=== PATIENT | male | born 1990 | race American Indian/Alaskan Native ===

== ENCOUNTER 2017-01-03 07:50 | Emergency (ER) | payer SELFPAY ==
[2017-01-03 08:04] VITALS: BP 147/74
[2017-01-03] MEDS ORDERED: MVI, Adult with Vitamin K 10 ML, Thiamine 100 MG, Folic Acid 1 MG in Lactated Ringers 1... IV ONE ×4 (08:15)
--- NOTE | 2017-01-03 08:21 | EDM.PDOC ---
ED HPI GENERAL MEDICAL PROBLEM - General Chief Complaint: Drug or Alcohol Abuse Stated Complaint: [id number] WITHDRAWAL Time Seen by Provider: 01/03/17 08:12 Source of Information: Reports: Patient History Limitations: Reports: No Limitations - History of Present Illness INITIAL COMMENTS - FREE TEXT/NARRATIVE: This 26 yo male patient reports to the ED "not feeling well". The patient reports he thinks he is having an anxiety attack. The patient reports he drank a liter of whiskey last night and a liter of whiskey the night before. The patient reports he feels "sick all over". The patient was seen for similar symptoms in the past after drinking and using meth. The patient denies any recent meth use. Onset: Today Duration: Constant, Getting Worse Location: Reports: Generalized Quality: Reports: Ache, Dull Severity: Moderate Improves with: Reports: None Worsens with: Reports: None Context: Reports: Other Associated Symptoms: Reports: Weakness - Related Data Allergies Allergy/AdvReac Type Severity Reaction Status Date / Time No Known Allergies Allergy Verified 06/06/16 00:06 Home Meds: Home Meds Ibuprofen [Advil] 400 mg PO Q6H PRN 10/23/13 [History] Past Medical History - Past Health History Medical/Surgical History: Denies Medical/Surgical History HEENT History: Reports: Impaired Vision Psychiatric History: Reports: Addiction - Past Surgical History HEENT Surgical History: Reports: Tonsillectomy Social & Family History - Family History Family Medical History: Noncontributory - Tobacco Use Smoking Status *Q: Never Smoker Years of Tobacco use: 5 Second Hand Smoke Exposure: No - Caffeine Use Caffeine Use: Reports: Coffee, Energy Drinks, Soda, Tea - Alcohol Use Days Per Week of Alcohol Use: 1 Number of Drinks Per Day: 30 Total Drinks Per Week: 30 - Recreational Drug Use Recreational Drug Use: Yes Recreational Drug Type: Reports: Marijuana/Hashish ED ROS GENERAL - Review of Systems Review Of Systems: ROS reveals no pertinent complaints other than HPI. ED EXAM, GENERAL - Physical Exam Exam: See Below Exam Limited By: No Limitations General Appearance: Alert, WD/WN, Moderate Distress, Obese (morbid obesity) Eye Exam: Bilateral Eye: EOMI, Normal Inspection, PERRL Ears: Normal External Exam, Normal Canal, Hearing Grossly Normal, Normal TMs Nose: Normal Inspection, Normal Mucosa, No Blood Throat/Mouth: Normal Inspection, Normal Lips, Normal Teeth, Normal Gums, Normal Oropharynx, Normal Voice, No Airway Compromise Head: Atraumatic, Normocephalic Neck: Normal Inspection, Supple, Non-Tender, Full Range of Motion Respiratory/Chest: No Respiratory Distress, Lungs Clear, Normal Breath Sounds, No Accessory Muscle Use, Chest Non-Tender Cardiovascular: Normal Peripheral Pulses, Regular Rate, Rhythm, No Edema, No Gallop, No JVD, No Murmur, No Rub GI/Abdominal: Normal Bowel Sounds, Soft, Non-Tender, No Organomegaly, No Distention, No Abnormal Bruit, No Mass, Other (obese) (Male) Exam: Deferred Rectal (Males) Exam: Deferred Back Exam: Normal Inspection, Full Range of Motion, NT Extremities: Normal Inspection, Normal Range of Motion, Non-Tender, Normal Capillary Refill, No Pedal Edema Neurological: Alert, Oriented, CN II-XII Intact, Normal Cognition, Normal Gait, No Motor/Sensory Deficits Psychiatric: Depressed Mood, Flat Affect, Other (poor eye contact) Skin Exam: Warm, Dry, Intact, Normal Color, No Rash Lymphatic: No Adenopathy Course - Vital Signs Last Recorded V/S: Last Vital Signs Temp 36.6 C 01/03/17 08:03 Pulse 84 01/03/17 08:03 Resp 16 01/03/17 08:03 BP 147/74 H 01/03/17 08:03 Pulse Ox 99 01/03/17 08:03 - Orders/Labs/Meds Labs: Laboratory Tests 01/03/17 01/03/17 01/03/17 Range/Units 08:31 08:31 08:31 WBC 8.7 (5.0-10.0) 10^3/uL RBC 5.35 (4.6-6.2) 10^6/uL Hgb 14.8 (14.0-18.0) g/dL Hct 46.0 (40.0-54.0) % MCV 86.0 (80-100) fL MCH 27.7 (27.0-34.0) pg MCHC 32.2 L (33.0-35.0) g/dL Plt Count 345 (150-450) 10^3/uL Neut % (Auto) 63.5 (42.2-75.2) % Lymph % (Auto) 23.3 (20.5-50.1) % [place] % (Auto) 7.3 (2-8) % Eos % (Auto) 5.6 H (1.0-3.0) % Baso % (Auto) 0.3 (0.0-1.0) % Sodium 143 (135-145) mmol/L Potassium 3.6 (3.6-5.0) mmol/L Chloride 108 (101-111) mmol/L Carbon Dioxide 21.0 (21.0-31.0) mmol/L Anion Gap 17.6 BUN 10 (7-18) mg/dL Creatinine 0.7 (0.6-1.3) mg/dL Est Cr Clr Drug Dosing 187.56 mL/min Estimated GFR (MDRD) > 60 BUN/Creatinine Ratio 14.28 Glucose 92 (74-105) mg/dL Calcium 8.8 (8.4-10.2) mg/dl Magnesium 1.9 (1.8-2.5) mg/dL Total Bilirubin 0.6 (0.2-1.0) mg/dL AST 24 (10-42) IU/L ALT 40 (10-60) IU/L Alkaline Phosphatase 79 (42-121) IU/L Ammonia 13 (11-35) umol/L Total Protein 8.1 (6.7-8.2) g/dl Albumin 3.8 (3.2-5.5) g/dl Globulin 4.3 Albumin/Globulin Ratio 0.88 Amylase 37 (28-100) U/L Lipase 26 (22-51) U/L Urine Color (YELLOW) Urine Appearance (CLEAR) Urine pH (5.0-9.0) Ur Specific [place] (1.005-1.030) Urine Protein (NEGATIVE) Urine Glucose (UA) (NEGATIVE) Urine Ketones (NEGATIVE) Urine Occult Blood (NEGATIVE) Urine Nitrite (NEGATIVE) Urine Bilirubin (NEGATIVE) Urine Urobilinogen (0.2-1.0) mg/dL Ur Leukocyte Esterase (NEGATIVE) Urine RBC /HPF Urine WBC (0-5/HPF) /HPF Ur Epithelial Cells /HPF Urine Bacteria (0-FEW/HPF) /HPF Urine Mucus /LPF Urine Opiates Screen (NEGATIVE) Ur Oxycodone Screen (NEGATIVE) Urine Methadone Screen (NEGATIVE) Acetaminophen < 10 Ur Barbiturates Screen (NEGATIVE) U Tricyclic Antidepress (NEGATIVE) Ur Phencyclidine Scrn (NEGATIVE) Ur Amphetamine Screen (NEGATIVE) U Methamphetamines Scrn (NEGATIVE) Urine MDMA Screen (NEGATIVE) U Benzodiazepines Scrn (NEGATIVE) Urine Cocaine Screen (NEGATIVE) U Marijuana (THC) Screen (NEGATIVE) Ethyl Alcohol 36 mg/dL 01/03/17 01/03/17 Range/Units 08:38 08:38 WBC (5.0-10.0) 10^3/uL RBC (4.6-6.2) 10^6/uL Hgb (14.0-18.0) g/dL Hct (40.0-54.0) % MCV (80-100) fL MCH (27.0-34.0) pg MCHC (33.0-35.0) g/dL Plt Count (150-450) 10^3/uL Neut % (Auto) (42.2-75.2) % Lymph % (Auto) (20.5-50.1) % [place] % (Auto) (2-8) % Eos % (Auto) (1.0-3.0) % Baso % (Auto) (0.0-1.0) % Sodium (135-145) mmol/L Potassium (3.6-5.0) mmol/L Chloride (101-111) mmol/L Carbon Dioxide (21.0-31.0) mmol/L Anion Gap BUN (7-18) mg/dL Creatinine (0.6-1.3) mg/dL Est Cr Clr Drug Dosing mL/min Estimated GFR (MDRD) BUN/Creatinine Ratio Glucose (74-105) mg/dL Calcium (8.4-10.2) mg/dl Magnesium (1.8-2.5) mg/dL Total Bilirubin (0.2-1.0) mg/dL AST (10-42) IU/L ALT (10-60) IU/L Alkaline Phosphatase (42-121) IU/L Ammonia (11-35) umol/L Total Protein (6.7-8.2) g/dl Albumin (3.2-5.5) g/dl Globulin Albumin/Globulin Ratio Amylase (28-100) U/L Lipase (22-51) U/L Urine Color Yellow (YELLOW) Urine Appearance Clear (CLEAR) Urine pH 6.0 (5.0-9.0) Ur Specific [place] 1.020 (1.005-1.030) Urine Protein Negative (NEGATIVE) Urine Glucose (UA) Negative (NEGATIVE) Urine Ketones 15 H (NEGATIVE) Urine Occult Blood Negative (NEGATIVE) Urine Nitrite Negative (NEGATIVE) Urine Bilirubin Negative (NEGATIVE) Urine Urobilinogen 0.2 (0.2-1.0) mg/dL Ur Leukocyte Esterase Negative (NEGATIVE) Urine RBC Not seen /HPF Urine WBC Not seen (0-5/HPF) /HPF Ur Epithelial Cells Rare /HPF Urine Bacteria Not seen (0-FEW/HPF) /HPF Urine Mucus Few H /LPF Urine Opiates Screen Negative (NEGATIVE) Ur Oxycodone Screen Negative (NEGATIVE) Urine Methadone Screen Negative (NEGATIVE) Acetaminophen Ur Barbiturates Screen Negative (NEGATIVE) U Tricyclic Antidepress Negative (NEGATIVE) Ur Phencyclidine Scrn Negative (NEGATIVE) Ur Amphetamine Screen Negative (NEGATIVE) U Methamphetamines Scrn Negative (NEGATIVE) Urine MDMA Screen Negative (NEGATIVE) U Benzodiazepines Scrn Negative (NEGATIVE) Urine Cocaine Screen Negative (NEGATIVE) U Marijuana (THC) Screen Positive H (NEGATIVE) Ethyl Alcohol mg/dL Meds: Medications Discontinued Medications Generic Name Dose Route Start Last Admin Trade Name Freq PRN Reason Stop Dose Admin Multivitamins/Minerals 10 ml/ 1,011.2 mls @ 999 mls/hr 01/03/17 08:15 08:27 Thiamine HCl 100 mg/ Folic IV 01/03/17 09:15 999 mls/hr Acid 1 mg/ Lactated Ringer's .BOLUS ONE Administration Lorazepam 1 mg 01/03/17 09:03 01/03/17 09:13 Ativan IVPUSH 01/03/17 09:04 1 mg ONETIME ONE Administration Departure - Departure Time of Disposition: 09:25 Disposition: Home, Self-Care 01 Condition: Fair Clinical Impression: ETOH abuse Gastritis without bleeding due to alcohol Qualifiers: Chronicity: acute Qualified Code(s): K29.20 - Alcoholic gastritis without bleeding - Discharge Information Instructions: Alcohol Intoxication, [id number], Finding Treatment for Addiction Forms: ED Department Discharge Care Plan Goals: The patient was advised of the examination and lab results during the visit. The patient was given a liter of IV fluids with Thiamine, Multivitamin and Folic Acid as well as a dose of IV Ativan whiel in the ED. The patient was encouraged to avoid alcohol use and abuse. If the patient has any additional symptoms or concerns, the patient should follow-up with his primary care facility for continued evaluation and further management.
[2017-01-03 08:58] LABS: CHLORIDE,CL 108 mmol/L (101-111); SODIUM,NA 143 mmol/L (135-145)
[2017-01-03 09:02] LABS: ACETAMINOPHEN < 10
[2017-01-03] MEDS ORDERED: LORazepam 2 MG/ML Syringe IVPUSH ONE (09:03)
== END 2017-01-03 09:42 | disposition home or self-care (01) ==
LOC: DL.ED 07:50
DX: K29.20 Alcoholic gastritis without bleeding (principal); F10.10 Alcohol abuse, uncomplicated; Y90.1 Blood alcohol level of 20-39 mg/100 ml; Z98.890 Other specified postprocedural states
CPT/HCPCS: 36415; 80053; 80305; 81001; 82140; 82150; 83690; 83735; 85025; 96365; 96375; 99284; G0480; J2060; J3411; J7120; J3490

== ENCOUNTER 2017-03-13 22:45 | Emergency (ER) | payer MEDICAID ==
[2017-03-13] MEDS ORDERED: LORazepam 1 MG Tab PO ONE (22:57)
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
[2017-03-13 23:28] VITALS: BP 136/84
== END 2017-03-14 00:15 | disposition home or self-care (01) ==
LOC: DL.ED 22:45
DX: S16.1XXA Strain of muscle, fascia and tendon at neck level, initial encounter (principal); X58.XXXA Exposure to other specified factors, initial encounter
CPT/HCPCS: 72125; 99283; A9270

== ENCOUNTER 2017-05-05 18:44 | Emergency (ER) | payer MEDICAID ==
[2017-05-05] MEDS ORDERED: LORazepam 1 MG Tab PO ONE (18:45)
[2017-05-05 18:52] VITALS: BP 171/90
--- NOTE | 2017-05-05 19:42 | EDM.PDOCBH ---
ED HPI GENERAL MEDICAL PROBLEM - General Chief Complaint: Drug or Alcohol Abuse Stated Complaint: [id number] ANXIETY INTOXICATION X 1 WEEK Time Seen by Provider: 05/05/17 19:10 Source of Information: Reports: Patient, Family - History of Present Illness INITIAL COMMENTS - FREE TEXT/NARRATIVE: Ed with c/o anxiety. Reports drinking more than one gallon of vodka daily for last week, prior to that had been sober for approximately one month. No hx of withdrawal seizures. Usual sx of anxiety and sweats. Reports some nausea today, no vomiting Onset: Today - Related Data Allergies Allergy/AdvReac Type Severity Reaction Status Date / Time No Known Allergies Allergy Verified 05/05/17 18:52 Home Meds: Home Meds . [No Known Home Meds] 05/05/17 [History] CIWAA - CIWAA CIWAA Nausea And Vomitin - Mild Nausea with No Vomiting CIWAA Tremor: 2 CIWAA Paroxysmal Sweats: 4 - Beads of Sweat Obvious on Forehead CIWAA Anxiety: 4 - Moderately Anxious, or Guarded, so Anxiety is Inferred CIWAA Agitation: 1 -Somewhat More than Normal Activity CIWAA Tactile Disturbances: 0 - None CIWAA Auditory Disturbances: 0 - Not Present CIWAA Visual Disturbances: 0 - Not Present CIWAA Headache, Fullness in Head: 0 - Not Present CIWAA Orientation And Clouding Of Sensorium: 0 - Oriented and Can do Serial Additions CIWAA Scale Score: 12 Past Medical History - Past Health History Medical/Surgical History: Denies Medical/Surgical History HEENT History: Reports: Impaired Vision Psychiatric History: Reports: Addiction, Anxiety - Past Surgical History HEENT Surgical History: Reports: Tonsillectomy Social & Family History - Family History Family Medical History: Noncontributory - Tobacco Use Smoking Status *Q: Never Smoker Years of Tobacco use: 5 Second Hand Smoke Exposure: Yes - Caffeine Use Caffeine Use: Reports: Coffee, Energy Drinks, Soda, Tea - Alcohol Use Days Per Week of Alcohol Use: 1 Number of Drinks Per Day: 30 Total Drinks Per Week: 30 - Recreational Drug Use Recreational Drug Use: No Drug Use in Last 12 Months: Yes Recreational Drug Type: Reports: Marijuana/Hashish Recreational Drug Use Frequency: Not Used In Over 6 Months ED ROS GENERAL - Review of Systems Review Of Systems: ROS reveals no pertinent complaints other than HPI. ED EXAM, BEHAVIORAL HEALTH - Physical Exam Exam: See Below Exam Limited By: No Limitations General Appearance: Alert, Anxious, Mild Distress. No: Lethargic Eye Exam: Bilateral Eye: EOMI (horizontal nystagmus) Ears: Normal External Exam, Normal TMs Nose: Normal Inspection Throat/Mouth: Normal Inspection Head: Atraumatic, Normocephalic Neck: Normal Inspection Respiratory/Chest: No Respiratory Distress, Lungs Clear Cardiovascular: Normal Peripheral Pulses, Regular Rate, Rhythm, Tachycardia GI/Abdominal: Normal Bowel Sounds, Soft, Non-Tender Back Exam: Full Range of Motion Extremities: Normal Inspection Neurological: Alert, Normal Cognition, Oriented x 3 Psychiatric: Alert, Restless, Agitated. No: Auditory Hallucinations, Visual Hallucinations Skin Exam: Warm, Normal color, Diaphoretic. No: Signs of self injury COURSE, BEHAVIORAL HEALTH COMP - Course Vital Signs: Last Vital Signs Temp 98 F 05/05/17 18:48 Pulse 126 H 05/05/17 18:48 Resp 22 H 05/05/17 18:48 BP 171/90 H 05/05/17 18:48 Pulse Ox 98 05/05/17 18:48 Orders, Labs, Meds: Laboratory Tests 05/05/17 05/05/17 05/05/17 Range/Units 19:30 19:30 19:45 WBC 7.6 (5.0-10.0) 10^3/uL RBC 5.59 (4.6-6.2) 10^6/uL Hgb 15.6 (14.0-18.0) g/dL Hct 47.2 (40.0-54.0) % MCV 84.4 (80-100) fL MCH 27.9 (27.0-34.0) pg MCHC 33.1 (33.0-35.0) g/dL Plt Count 365 (150-450) 10^3/uL Neut % (Auto) 69.5 (42.2-75.2) % Lymph % (Auto) 21.2 (20.5-50.1) % [place] % (Auto) 7.5 (2-8) % Eos % (Auto) 1.1 (1.0-3.0) % Baso % (Auto) 0.7 (0.0-1.0) % Sodium 142 (135-145) mmol/L Potassium 3.6 (3.6-5.0) mmol/L Chloride 107 (101-111) mmol/L Carbon Dioxide 24.0 (21.0-31.0) mmol/L Anion Gap 14.6 BUN 9 (7-18) mg/dL Creatinine 0.7 (0.6-1.3) mg/dL Est Cr Clr Drug Dosing 185.93 mL/min Estimated GFR (MDRD) > 60 BUN/Creatinine Ratio 12.85 Glucose 112 H (74-105) mg/dL Calcium 8.5 (8.4-10.2) mg/dl Total Bilirubin 0.4 (0.2-1.0) mg/dL AST 30 (10-42) IU/L ALT 48 (10-60) IU/L Alkaline Phosphatase 81 (42-121) IU/L Total Protein 8.8 H (6.7-8.2) g/dl Albumin 4.1 (3.2-5.5) g/dl Globulin 4.7 Albumin/Globulin Ratio 0.87 Urine Color (YELLOW) Urine Appearance (CLEAR) Urine pH (5.0-9.0) Ur Specific [place] (1.005-1.030) Urine Protein (NEGATIVE) Urine Glucose (UA) (NEGATIVE) Urine Ketones (NEGATIVE) Urine Occult Blood (NEGATIVE) Urine Nitrite (NEGATIVE) Urine Bilirubin (NEGATIVE) Urine Urobilinogen (0.2-1.0) mg/dL Ur Leukocyte Esterase (NEGATIVE) Urine RBC /HPF Urine WBC (0-5/HPF) /HPF Ur Epithelial Cells /HPF Amorphous Sediment (0/HPF) /HPF Urine Bacteria (0-FEW/HPF) /HPF Urine Mucus /LPF Urine Yeast (0/HPF) /HPF Urine Opiates Screen Negative (NEGATIVE) Ur Oxycodone Screen Negative (NEGATIVE) Urine Methadone Screen Negative (NEGATIVE) Ur Barbiturates Screen Negative (NEGATIVE) U Tricyclic Antidepress Negative (NEGATIVE) Ur Phencyclidine Scrn Negative (NEGATIVE) Ur Amphetamine Screen Negative (NEGATIVE) U Methamphetamines Scrn Negative (NEGATIVE) Urine MDMA Screen Negative (NEGATIVE) U Benzodiazepines Scrn Negative (NEGATIVE) Urine Cocaine Screen Negative (NEGATIVE) U Marijuana (THC) Screen Negative (NEGATIVE) Ethyl Alcohol 274 mg/dL 05/05/ Range/Units 19:45 WBC (5.0-10.0) 10^3/uL RBC (4.6-6.2) 10^6/uL Hgb (14.0-18.0) g/dL Hct (40.0-54.0) % MCV (80-100) fL MCH (27.0-34.0) pg MCHC (33.0-35.0) g/dL Plt Count (150-450) 10^3/uL Neut % (Auto) (42.2-75.2) % Lymph % (Auto) (20.5-50.1) % [place] % (Auto) (2-8) % Eos % (Auto) (1.0-3.0) % Baso % (Auto) (0.0-1.0) % Sodium (135-145) mmol/L Potassium (3.6-5.0) mmol/L Chloride (101-111) mmol/L Carbon Dioxide (21.0-31.0) mmol/L Anion Gap BUN (7-18) mg/dL Creatinine (0.6-1.3) mg/dL Est Cr Clr Drug Dosing mL/min Estimated GFR (MDRD) BUN/Creatinine Ratio Glucose (74-105) mg/dL Calcium (8.4-10.2) mg/dl Total Bilirubin (0.2-1.0) mg/dL AST (10-42) IU/L ALT (10-60) IU/L Alkaline Phosphatase (42-121) IU/L Total Protein (6.7-8.2) g/dl Albumin (3.2-5.5) g/dl Globulin Albumin/Globulin Ratio Urine Color Dark yellow (YELLOW) Urine Appearance Slightly cloudy (CLEAR) Urine pH 6.0 (5.0-9.0) Ur Specific [place] >= 1.030 (1.005-1.030) Urine Protein 100 H (NEGATIVE) Urine Glucose (UA) Negative (NEGATIVE) Urine Ketones Trace H (NEGATIVE) Urine Occult Blood Large H (NEGATIVE) Urine Nitrite Negative (NEGATIVE) Urine Bilirubin Negative (NEGATIVE) Urine Urobilinogen 0.2 (0.2-1.0) mg/dL Ur Leukocyte Esterase Negative (NEGATIVE) Urine RBC 30-40 H /HPF Urine WBC 0-5 (0-5/HPF) /HPF Ur Epithelial Cells Few /HPF Amorphous Sediment Few (0/HPF) /HPF Urine Bacteria Moderate H (0-FEW/HPF) /HPF Urine Mucus Many H /LPF Urine Yeast Few H (0/HPF) /HPF Urine Opiates Screen (NEGATIVE) Ur Oxycodone Screen (NEGATIVE) Urine Methadone Screen (NEGATIVE) Ur Barbiturates Screen (NEGATIVE) U Tricyclic Antidepress (NEGATIVE) Ur Phencyclidine Scrn (NEGATIVE) Ur Amphetamine Screen (NEGATIVE) U Methamphetamines Scrn (NEGATIVE) Urine MDMA Screen (NEGATIVE) U Benzodiazepines Scrn (NEGATIVE) Urine Cocaine Screen (NEGATIVE) U Marijuana (THC) Screen (NEGATIVE) Ethyl Alcohol mg/dL Medications Discontinued Medications Generic Name Dose Route Start Last Admin Trade Name Leroyq PRN Reason Stop Dose Admin Lorazepam Confirm 05/05/17 20:05 05/05/17 20:11 Ativan Administered 05/05/17 20:06 Not Given Dose 3 mg .ROUTE .STK-MED ONE Departure - Departure Time of Disposition: 19:57 Disposition: Home, Self-Care 01 Condition: Fair Clinical Impression: Alcohol abuse Alcohol withdrawal syndrome Qualifiers: Complication of substance-induced condition: with unspecified complication Qualified Code(s): F10.239 - Alcohol dependence with withdrawal, unspecified - Discharge Information Instructions: Alcohol Intoxication, [id number] Referrals: PCP,None [Primary Care Provider] - Forms: ED Department Discharge Additional Instructions: Ativan1 mg every 6 hours #3 Follow up at [facility] in am for evaluation quit drinking home with brother
[2017-05-05 19:52] LABS: CHLORIDE,CL 107 mmol/L (101-111); SODIUM,NA 142 mmol/L (135-145)
[2017-05-05] MEDS ORDERED: LORazepam 1 MG Tab ONE (20:05)
== END 2017-05-05 20:09 | disposition home or self-care (01) ==
LOC: DL.ED 18:44
DX: F10.239 Alcohol dependence with withdrawal, unspecified (principal); Z77.22 Contact with and (suspected) exposure to environmental tobacco smoke (acute) (chronic); Y90.8 Blood alcohol level of 240 mg/100 ml or more
CPT/HCPCS: 36415; 80053; 80305; 81001; 85025; 99283; A9270; G0480

== ENCOUNTER 2017-07-04 20:15 | Emergency (ER) | payer MEDICAID | END 2017-07-04 20:36 | disposition left against medical advice (07) | LOC: DL.ED 20:15 | DX: Z53.21 Procedure and treatment not carried out due to patient leaving prior to being seen by health care provider (principal) ==

== ENCOUNTER 2017-09-23 07:56 | Observation (INO) | payer MEDICAID ==
--- NOTE | 2017-09-23 08:05 | EDM.PDOC ---
ED HPI GENERAL MEDICAL PROBLEM - General Chief Complaint: Drug or Alcohol Abuse Stated Complaint: ALCOHOL & DRUGS [phone] Time Seen by Provider: 09/23/17 08:05 Source of Information: Reports: Patient, RN, RN Notes Reviewed History Limitations: Reports: No Limitations - History of Present Illness INITIAL COMMENTS - FREE TEXT/NARRATIVE: Arrives from home by POV with c/o alcohol withdrawals and anxiety. Pt states that he last drank alcohol yesterday. Admits to drinking approx. one liter of whisky or vodka per day for 10 years. Pt admits to Hx of alcohol withdrawals. Denies Hx of withdrawal seizures. Pt has not been to alcohol treatment in the past, but would like to go to a treatment facility once he is over the acute EtOH withdrawal phase. Pt denies vomiting, abdominal pain, dark/black/bloody/melanotic stools. Duration: Chronic Location: Reports: Generalized Severity: Severe Improves with: Reports: None Worsens with: Reports: None Associated Symptoms: Reports: No Other Symptoms - Related Data Allergies Allergy/AdvReac Type Severity Reaction Status Date / Time No Known Allergies Allergy Verified 09/23/17 08:08 Home Meds: Home Meds . [No Known Home Meds] 05/05/17 [History] Past Medical History - Past Health History Medical/Surgical History: Denies Medical/Surgical History HEENT History: Reports: Impaired Vision Psychiatric History: Reports: Addiction, Anxiety Endocrine/Metabolic History: Reports: Obesity/BMI 30+ - Past Surgical History HEENT Surgical History: Reports: Tonsillectomy Social & Family History - Family History Family Medical History: Noncontributory - Tobacco Use Smoking Status *Q: Never Smoker Years of Tobacco use: 5 Second Hand Smoke Exposure: Yes - Caffeine Use Caffeine Use: Reports: Coffee, Energy Drinks, Soda, Tea - Alcohol Use Alcohol Use History: Yes Days Per Week of Alcohol Use: 7 Days Per Week of Alcohol Use Comment: 1 liter or hard alcohol per day x10 yrs. Number of Drinks Per Day: 30 Total Drinks Per Week: 210 Alcohol Use in Last Twelve Months: Yes Alcohol Use Frequency: Daily Desires Substance Cessation Medication: Yes - Recreational Drug Use Recreational Drug Use: No Drug Use in Last 12 Months: Yes Recreational Drug Type: Reports: Marijuana/Hashish Recreational Drug Use Frequency: Socially Recreational Drug Route: Reports: Inhaled - Living Situation & Occupation Living situation: Reports: Single, with Family Occupation: Unemployed ED ROS GENERAL - Review of Systems Review Of Systems: ROS reveals no pertinent complaints other than HPI. ED EXAM, GENERAL - Physical Exam Exam: See Below Exam Limited By: No Limitations General Appearance: Alert, Anxious, Obese Eye Exam: Bilateral Eye: EOMI, Nystagmus (lateral gaze), PERRL Ears: Normal External Exam, Normal Canal, Hearing Grossly Normal, Normal TMs Nose: No Blood Throat/Mouth: Normal Oropharynx, Normal Voice, No Airway Compromise, Other (dry oral membranes) Head: Atraumatic, Normocephalic Neck: Normal Inspection, Supple, Non-Tender, Full Range of Motion Respiratory/Chest: No Respiratory Distress, Lungs Clear, Normal Breath Sounds, No Accessory Muscle Use, Chest Non-Tender Cardiovascular: Regular Rate, Rhythm, No Edema, No JVD, No Murmur, Tachycardia GI/Abdominal: Normal Bowel Sounds, Soft, Non-Tender, No Distention, Other ( benign obese abdomen). No: Guarding, Rigid, Rebound (Male) Exam: Deferred Rectal (Males) Exam: Deferred Back Exam: Normal Inspection, Full Range of Motion. No: CVA Tenderness (L), CVA Tenderness (R) Extremities: Normal Inspection, Normal Range of Motion, Non-Tender, Normal Capillary Refill, No Pedal Edema Neurological: Alert, Oriented, Normal Gait, No Motor/Sensory Deficits Psychiatric: Anxious, Depressed Mood Skin Exam: Warm, Dry, Intact, Other (central facial erythema w/nodular lesion consistent with rosacea) Course - Vital Signs Last Recorded V/S: Last Vital Signs Temp 36.6 C 09/23/17 08:05 Pulse 93 09/23/17 08:05 Resp 16 09/23/17 08:05 BP 154/90 H 09/23/17 08:05 Pulse Ox 96 09/23/17 08:05 - Orders/Labs/Meds Orders: Active Orders 24 hr Category Date Time Status Peripheral IV Care [RC] . DIRECTED Care 09/23/17 08:13 Active DRUG SCREEN URINE BIORAD [URCHEM] Stat Lab 09/23/17 08:13 Ordered TSH ULTRASENSITIVE [CHEM] Stat Lab 09/23/17 08:22 Received UA W/MICROSCOPIC [URIN] Stat Lab 09/23/17 08:13 Ordered MVI, Adult with Vitamin K [Infuvite Adult] 10 ml Med 09/23/17 08:14 Active Thiamine [Vitamin B-1] 100 mg Folic Acid 1 mg Lactated Ringers [Ringers, Lactated] 1,000 ml IV .BOLUS Sodium Chloride 0.9% [Saline Flush] Med 09/23/17 08:13 Active 10 ml FLUSH ASDIRECTED PRN Peripheral IV Insertion Adult [OM.PC] Stat Oth 09/23/17 08:13 Ordered Medication Orders Multivitamins/Minerals 10 ml/Thiamine HCl 100 mg/ Folic Acid 1 mg/ Lactated Ringer's 1,011.2 mls @ 999 mls/hr IV .BOLUS ONE Stop: 09/23/17 09:14 Last Admin: 09/23/17 08:31 Dose: 999 mls/hr Sodium Chloride (Saline Flush) 10 ml FLUSH ASDIRECTED PRN PRN Reason: Keep Vein Open Last Admin: 09/23/17 08:32 Dose: 10 ml Labs: Laboratory Tests 09/23/17 09/23/17 Range/Units 08:22 08:22 WBC 7.2 (5.0-10.0) 10^3/uL RBC 5.24 (4.6-6.2) 10^6/uL Hgb 14.8 (14.0-18.0) g/dL Hct 44.7 (40.0-54.0) % MCV 85.3 (80-100) fL MCH 28.2 (27.0-34.0) pg MCHC 33.1 (33.0-35.0) g/dL Plt Count 337 (150-450) 10^3/uL Neut % (Auto) 66.6 (42.2-75.2) % Lymph % (Auto) 20.1 L (20.5-50.1) % [place] % (Auto) 8.9 H (2-8) % Eos % (Auto) 3.8 H (1.0-3.0) % Baso % (Auto) 0.6 (0.0-1.0) % Sodium 140 (135-145) mmol/L Potassium 3.6 (3.6-5.0) mmol/L Chloride 106 (101-111) mmol/L Carbon Dioxide 23.0 (21.0-31.0) mmol/L Anion Gap 14.6 BUN 6 L (7-18) mg/dL Creatinine 0.8 (0.6-1.3) mg/dL Est Cr Clr Drug Dosing 162.69 mL/min Estimated GFR (MDRD) > 60 BUN/Creatinine Ratio 7.50 Glucose 104 (74-105) mg/dL Calcium 8.9 (8.4-10.2) mg/dl Magnesium 1.6 L (1.8-2.5) mg/dL Total Bilirubin 0.5 (0.2-1.0) mg/dL AST 23 (10-42) IU/L ALT 55 (10-60) IU/L Alkaline Phosphatase 80 (42-121) IU/L Total Protein 8.2 (6.7-8.2) g/dl Albumin 3.9 (3.2-5.5) g/dl Globulin 4.3 Albumin/Globulin Ratio 0.91 Amylase 40 (28-100) U/L Lipase 34 (22-51) U/L Salicylates < 4 Acetaminophen < 10 Ethyl Alcohol 17 mg/dL Meds: Medications Generic Name Dose Route Start Last Admin Trade Name Leroyq PRN Reason Stop Dose Admin Multivitamins/Minerals 10 ml/ 1,011.2 mls @ 999 mls/hr 09/23/17 08:14 08:31 Thiamine HCl 100 mg/ Folic IV 09/23/17 09:14 999 mls/hr Acid 1 mg/ Lactated Ringer's .BOLUS ONE Administration Sodium Chloride 10 ml 09/23/17 08:13 09/23/17 08:32 Saline Flush FLUSH 10 ml ASDIRECTED PRN Administration Keep Vein Open Discontinued Medications Generic Name Dose Route Start Last Admin Trade Name Leroyq PRN Reason Stop Dose Admin Lorazepam 2 mg 09/23/17 08:14 09/23/17 08:31 Ativan IVPUSH 09/23/17 08:15 2 mg ONETIME ONE Administration Ondansetron HCl 4 mg 09/23/17 08:14 09/23/17 08:32 Zofran IV 09/23/17 08:15 4 mg ONETIME ONE Administration Departure - Departure Time of Disposition: 09:06 (admitted to Dr. Lee) Disposition: Admitted As Inpatient 67 Condition: Fair Clinical Impression: Alcohol abuse Alcohol withdrawal syndrome Qualifiers: Complication of substance-induced condition: with unspecified complication Qualified Code(s): F10.239 - Alcohol dependence with withdrawal, unspecified - Discharge Information Forms: ED Department Discharge - My Orders Last 24 Hours: My Active Orders 09/23/17 08:13 Peripheral IV Care [RC] . DIRECTED DRUG SCREEN URINE BIORAD [URCHEM] Stat UA W/MICROSCOPIC [URIN] Stat Sodium Chloride 0.9% [Saline Flush] 10 ml FLUSH ASDIRECTED PRN Peripheral IV Insertion Adult [OM.PC] Stat 09/23/17 08:14 MVI, Adult with Vitamin K [Infuvite Adult] 10 ml Thiamine [Vitamin B-1] 100 mg Folic Acid 1 mg Lactated Ringers [Ringers, Lactated] 1,000 ml IV .BOLUS 09/23/17 08:22 TSH ULTRASENSITIVE [CHEM] Stat - Assessment/Plan Last 24 Hours: My Active Orders 09/23/17 08:13 Peripheral IV Care [RC] . DIRECTED DRUG SCREEN URINE BIORAD [URCHEM] Stat UA W/MICROSCOPIC [URIN] Stat Sodium Chloride 0.9% [Saline Flush] 10 ml FLUSH ASDIRECTED PRN Peripheral IV Insertion Adult [OM.PC] Stat 09/23/17 08:14 MVI, Adult with Vitamin K [Infuvite Adult] 10 ml Thiamine [Vitamin B-1] 100 mg Folic Acid 1 mg Lactated Ringers [Ringers, Lactated] 1,000 ml IV .BOLUS 09/23/17 08:22 TSH ULTRASENSITIVE [CHEM] Stat
[2017-09-23] MEDS ORDERED: LORazepam 2 MG/ML Syringe IVPUSH ONE (08:14)
[2017-09-23] MEDS ORDERED: Ondansetron 4 MG/2 ML SDV IV ONE (08:14)
[2017-09-23] MEDS ORDERED: MVI, Adult with Vitamin K 10 ML, Thiamine 100 MG, Folic Acid 1 MG in Lactated Ringers 1... IV ONE ×4 (08:14)
[2017-09-23] MEDS: Sodium Chloride 0.9% 10 ML Syringe FLUSH PRN (08:32)
[2017-09-23 08:56] LABS: CHLORIDE,CL 106 mmol/L (101-111); SODIUM,NA 140 mmol/L (135-145)
[2017-09-23 08:58] LABS: ACETAMINOPHEN < 10
[2017-09-23] MEDS ORDERED: LORazepam 2 MG/ML Syringe IVPUSH PRN (09:48)
[2017-09-23] MEDS ORDERED: Ondansetron 4 MG Tab.DIS PO PRN (09:49)
[2017-09-23] MEDS ORDERED: Ondansetron 4 MG/2 ML SDV IVPUSH PRN (09:49)
[2017-09-23] MEDS ORDERED: Zolpidem 5 MG Tab PO PRN (09:49)
--- NOTE | 2017-09-23 11:16 | PCM.HP ---
H&P History of Present Illness - General Date of Service: 09/23/17 Admit Problem/Dx: Admission Diagnosis/Problem Admission Diagnosis/Problem Alcohol withdrawal syndrome - History of Present Illness Initial Comments - Free Text/Narative: 27-year-old gentleman with a history of alcohol abuse. He has no other chronic medical history. Has been drinking heavily for years. Recently 1 L of hard liquor a day. Has tried to stop drinking but he usually gets very anxious and restarting drinking again. Has not been in all official treatment before. Last drink was on 22 September evening. Came into the emergency room complaining of anxiety No shortness of breath, no chest pain, no fever or chills. No black or bloody bowel movement. No vomiting. - Related Data Allergies/Adverse Reactions: Allergies Allergy/AdvReac Type Severity Reaction Status Date / Time No Known Allergies Allergy Verified 09/23/17 10:04 Home Medications: Home Meds Multivitamin [Multi-Vitamin Daily] 1 tab PO DAILY 09/23/17 [History] Past Medical History - Past Health History Medical/Surgical History: Denies Medical/Surgical History HEENT History: Reports: Impaired Vision Psychiatric History: Reports: Addiction, Anxiety Endocrine/Metabolic History: Reports: Obesity/BMI 30+ - Infectious Disease History Infectious Disease History: Reports: Chicken Pox - Past Surgical History HEENT Surgical History: Reports: Tonsillectomy Social & Family History - Family History Family Medical History: Noncontributory - Tobacco Use Smoking Status *Q: Never Smoker Years of Tobacco use: 5 Used Tobacco, but Quit: Yes Month/Year Tobacco Last Used: 2017 Second Hand Smoke Exposure: Yes - Caffeine Use Caffeine Use: Reports: Coffee, Energy Drinks, Soda, Tea - Alcohol Use Days Per Week of Alcohol Use: 7 Number of Drinks Per Day: 30 Total Drinks Per Week: 210 - Recreational Drug Use Recreational Drug Use: Yes Drug Use in Last 12 Months: Yes Recreational Drug Type: Reports: Marijuana/Hashish Recreational Drug Use Frequency: Monthly - Living Situation & Occupation Living situation: Reports: Single, with Family Occupation: Unemployed H&P Review of Systems - Review of Systems: Review Of Systems: See Below General: Denies: Fever Pulmonary: Denies: Shortness of Breath Cardiovascular: Denies: Chest Pain Gastrointestinal: Reports: Nausea. Denies: Abdominal Pain Psychiatric: Reports: Anxiety. Denies: Agitation Neurological: Denies: Confusion Exam - Exam Exam: See Below - Vital Signs Vital Signs: Last Vital Signs Temp 36.7 C 09/23/17 09:50 Pulse 94 09/23/17 09:50 Resp 20 09/23/17 09:50 BP 147/97 H 09/23/17 09:50 Pulse Ox 98 09/23/17 09:50 Weight: 207.382 kg - Exam General: Alert, Oriented Neck: Supple Lungs: Clear to Auscultation, Normal Respiratory Effort Cardiovascular: Regular Rate, Regular Rhythm GI/Abdominal Exam: Normal Bowel Sounds, Soft, Non-Tender Extremities: No Pedal Edema Neurological: Strength Equal Bilateral, Normal Speech. No: Focal Deficit Neuro Extensive - Mental Status: Other (Upper extremity mild tremor) Psychiatric: Alert, Normal Affect, Anxious - Patient Data Lab Results Last 24 hrs: Laboratory Results - last 24 hr 09/23/17 09/23/17 09/23/17 Range/Units 08:22 08:22 08:22 WBC 7.2 (5.0-10.0) 10^3/uL RBC 5.24 (4.6-6.2) 10^6/uL Hgb 14.8 (14.0-18.0) g/dL Hct 44.7 (40.0-54.0) % MCV 85.3 (80-100) fL MCH 28.2 (27.0-34.0) pg MCHC 33.1 (33.0-35.0) g/dL Plt Count 337 (150-450) 10^3/uL Neut % (Auto) 66.6 (42.2-75.2) % Lymph % (Auto) 20.1 L (20.5-50.1) % [place] % (Auto) 8.9 H (2-8) % Eos % (Auto) 3.8 H (1.0-3.0) % Baso % (Auto) 0.6 (0.0-1.0) % Sodium 140 (135-145) mmol/L Potassium 3.6 (3.6-5.0) mmol/L Chloride 106 (101-111) mmol/L Carbon Dioxide 23.0 (21.0-31.0) mmol/L Anion Gap 14.6 BUN 6 L (7-18) mg/dL Creatinine 0.8 (0.6-1.3) mg/dL Est Cr Clr Drug Dosing 162.69 mL/min Estimated GFR (MDRD) > 60 BUN/Creatinine Ratio 7.50 Glucose 104 (74-105) mg/dL Calcium 8.9 (8.4-10.2) mg/dl Magnesium 1.6 L (1.8-2.5) mg/dL Total Bilirubin 0.5 (0.2-1.0) mg/dL AST 23 (10-42) IU/L ALT 55 (10-60) IU/L Alkaline Phosphatase 80 (42-121) IU/L Total Protein 8.2 (6.7-8.2) g/dl Albumin 3.9 (3.2-5.5) g/dl Globulin 4.3 Albumin/Globulin Ratio 0.91 Amylase 40 (28-100) U/L Lipase 34 (22-51) U/L TSH, Ultra Sensitive 1.06 (0.45-5.33) uIu/mL Salicylates < 4 Acetaminophen < 10 Ethyl Alcohol 17 mg/dL Result Diagrams: 09/23/17 08:22 09/23/17 08:22 - Problem List (1) Alcohol abuse SNOMED Code(s): 32519740 ICD Code: F10.10 - ALCOHOL ABUSE, UNCOMPLICATED Status: Acute Current Visit: No Problem List Initiated/Reviewed/Updated: Yes Orders Last 24hrs: Active Orders 24 hr Category Date Time Status Admission Status [Patient Status] [ADT] Routine ADT 09/23/17 10:54 Ordered Oxygen Therapy [RC] PRN Care 09/23/17 09:50 Active Up With Assistance [RC] ASDIRECTED Care 09/23/17 09:49 Active Vital Signs [RC] 07,11,15,19,23,03 Care 09/23/17 09:50 Active Regular Diet [DIET] Diet 09/23/17 Lunch Active BASIC METABOLIC PANEL,BMP [CHEM] AM Lab 09/24/17 05:15 Ordered CBC WITH AUTO DIFF [HEME] AM Lab 09/24/17 05:15 Ordered DRUG SCREEN URINE BIORAD [URCHEM] Stat Lab 09/23/17 08:13 Ordered UA W/MICROSCOPIC [URIN] Stat Lab 09/23/17 08:13 Ordered Heparin Sodium Med 09/23/17 14:00 Active 5,000 units SUBCUT Q8HR LORazepam [Ativan] Med 09/23/17 09:48 Active 1 mg IVPUSH ASDIRECTED PRN LORazepam [Ativan] Med 09/23/17 09:47 Active See Protocol PO Q1H PRN Ondansetron [Zofran ODT] Med 09/23/17 09:49 Active 4 mg PO Q4H PRN Ondansetron [Zofran] Med 09/23/17 09:49 Active 4 mg IVPUSH Q4H PRN Sodium Chloride 0.9% [Saline Flush] Med 09/23/17 08:13 Active 10 ml FLUSH ASDIRECTED PRN Sodium Chloride 0.9% with KCl 20 mEq @ 100 mL/Hr (1000 Med 09/23/17 11:00 Ordered mL) NS + KCl 20mEq/L [Normal Saline with 20 mEq KCl] 1,000 ml IV ASDIRECTED Zolpidem [Ambien] Med 09/23/17 09:49 Active 5 mg PO BEDTIME PRN Peripheral IV Insertion Adult [OM.PC] Stat Oth 09/23/17 08:13 Ordered Resuscitation Status Routine Resus Stat 09/23/17 09:49 Ordered Medication Orders Heparin Sodium (Porcine) (Heparin Sodium) 5,000 units SUBCUT Q8HR RUDDY Potassium Chloride/Sodium Chloride (Normal Saline With 20 Meq Kcl) 1,000 mls @ 100 mls/hr IV ASDIRECTED RUDDY Lorazepam (Ativan) 0 mg PO Q1H PRN; Protocol PRN Reason: Withdrawal Symptoms Lorazepam (Ativan) 1 mg IVPUSH ASDIRECTED PRN; Protocol PRN Reason: withdrawal Ondansetron HCl (Zofran Odt) 4 mg PO Q4H PRN PRN Reason: nausea, able to take PO Ondansetron HCl (Zofran) 4 mg IVPUSH Q4H PRN PRN Reason: Nausea/Vomiting Sodium Chloride (Saline Flush) 10 ml FLUSH ASDIRECTED PRN PRN Reason: Keep Vein Open Last Admin: 09/23/17 08:32 Dose: 10 ml Zolpidem Tartrate (Ambien) 5 mg PO BEDTIME PRN PRN Reason: Sleep Assessment/Plan Comment:: 1. Alcohol abuse. We will give the patient IV fluids with IV electrolyte replacement. Follow electrolytes. 2. Chronic Alcohol addiction. Consult Social Work and evaluate for alcohol treatment programs. 3. Chronic alcohol use. Supplement thiamine, folate and multivitamin. 4. High Risk for alcohol withdrawal. Frequent evaluations and titration of Ativan per the CIWA protocol 5. Deep venous thrombosis (DVT) prophylaxis will be with subcutaneous heparin.
[2017-09-23] MEDS: NS + KCl 20mEq/L 1,000 ML IV SCH ×2 (11:17→22:00)
[2017-09-23] MEDS: LORazepam 1 MG Tab PO PRN ×2 (11:28→20:49)
[2017-09-23] MEDS: Thiamine 100 MG Tab PO SCH (12:42)
[2017-09-23] MEDS: Folic Acid 1 MG Tab PO SCH (12:42)
[2017-09-23] MEDS: Multivitamins, Therapeutic with Minerals Tab PO SCH (12:42)
[2017-09-23] MEDS: Heparin Sodium 5,000 Units/ML Vial SUBCUT SCH ×2 (15:52→21:45)
[2017-09-23] MEDS ORDERED: Acetaminophen 325 MG Tab PO PRN (23:37)
[2017-09-24] MEDS: Heparin Sodium 5,000 Units/ML Vial SUBCUT SCH ×3 (06:53→21:37)
[2017-09-24 07:22] LABS: CHLORIDE,CL 105 mmol/L (101-111); SODIUM,NA 138 mmol/L (135-145)
[2017-09-24] MEDS: Thiamine 100 MG Tab PO SCH (08:19)
[2017-09-24] MEDS: Folic Acid 1 MG Tab PO SCH (08:19)
[2017-09-24] MEDS: Multivitamins, Therapeutic with Minerals Tab PO SCH (08:19)
[2017-09-24] MEDS: NS + KCl 20mEq/L 1,000 ML IV SCH (08:32)
--- NOTE | 2017-09-24 11:36 | PCM.PN ---
- General Info Date of Service: 09/24/17 Admission Dx/Problem (Free Text): Admission Diagnosis/Problem Admission Diagnosis/Problem Alcohol withdrawal syndrome Subjective Update: feeling better anxiety started [employer] is better no apparent withdrawal symptoms no associated nausea no fever - Review of Systems General: Denies: Fever, Weakness Pulmonary: Denies: Shortness of Breath Cardiovascular: Denies: Chest Pain, Edema Gastrointestinal: Denies: Abdominal Pain Neurological: Denies: Confusion Psychiatric: Reports: Anxiety - Patient Data Vitals - Most Recent: Last Vital Signs Temp 36.7 C 09/24/17 08:00 Pulse 79 09/24/17 08:00 Resp 18 09/24/17 08:00 BP 143/91 H 09/24/17 08:00 Pulse Ox 96 09/24/17 08:00 Weight - Most Recent: 207.382 kg I&O - Last 24 Hours: Intake & Output 09/23/17 09/24/17 09/24/17 22:59 06:59 14:59 Intake Total 2165 1667 310 Balance 2165 1667 310 Lab Results Last 24 Hours: Laboratory Results - last 24 hr 09/23/17 09/23/17 09/24/17 Range/Units 11:15 11:15 06:30 WBC 7.2 (5.0-10.0) 10^3/uL RBC 4.81 (4.6-6.2) 10^6/uL Hgb 13.5 L (14.0-18.0) g/dL Hct 41.3 (40.0-54.0) % MCV 85.9 (80-100) fL MCH 28.1 (27.0-34.0) pg MCHC 32.7 L (33.0-35.0) g/dL Plt Count 293 (150-450) 10^3/uL Neut % (Auto) 57.1 (42.2-75.2) % Lymph % (Auto) 26.8 (20.5-50.1) % [place] % (Auto) 10.0 H (2-8) % Eos % (Auto) 5.7 H (1.0-3.0) % Baso % (Auto) 0.4 (0.0-1.0) % Sodium (135-145) mmol/L Potassium (3.6-5.0) mmol/L Chloride (101-111) mmol/L Carbon Dioxide (21.0-31.0) mmol/L Anion Gap BUN (7-18) mg/dL Creatinine (0.6-1.3) mg/dL Est Cr Clr Drug Dosing mL/min Estimated GFR (MDRD) Glucose (74-105) mg/dL Calcium (8.4-10.2) mg/dl Urine Color Yellow (YELLOW) Urine Appearance Slightly cloudy (CLEAR) Urine pH 5.5 (5.0-9.0) Ur Specific Counce 1.025 (1.005-1.030) Urine Protein Negative (NEGATIVE) Urine Glucose (UA) Negative (NEGATIVE) Urine Ketones Negative (NEGATIVE) Urine Occult Blood Negative (NEGATIVE) Urine Nitrite Negative (NEGATIVE) Urine Bilirubin Negative (NEGATIVE) Urine Urobilinogen 0.2 (0.2-1.0) mg/dL Ur Leukocyte Esterase Negative (NEGATIVE) Urine RBC 0-5 /HPF Urine WBC 0-5 (0-5/HPF) /HPF Ur Epithelial Cells Rare /HPF Amorphous Sediment Rare (0/HPF) /HPF Urine Bacteria Rare (0-FEW/HPF) /HPF Urine Mucus Moderate H /LPF Urine Opiates Screen Negative (NEGATIVE) Ur Oxycodone Screen Negative (NEGATIVE) Urine Methadone Screen Negative (NEGATIVE) Ur Barbiturates Screen Negative (NEGATIVE) U Tricyclic Antidepress Negative (NEGATIVE) Ur Phencyclidine Scrn Negative (NEGATIVE) Ur Amphetamine Screen Negative (NEGATIVE) U Methamphetamines Scrn Negative (NEGATIVE) Urine MDMA Screen Negative (NEGATIVE) U Benzodiazepines Scrn Positive H (NEGATIVE) Urine Cocaine Screen Negative (NEGATIVE) U Marijuana (THC) Screen Positive H (NEGATIVE) 09/24/17 Range/Units 06:30 WBC (5.0-10.0) 10^3/uL RBC (4.6-6.2) 10^6/uL Hgb (14.0-18.0) g/dL Hct (40.0-54.0) % MCV (80-100) fL MCH (27.0-34.0) pg MCHC (33.0-35.0) g/dL Plt Count (150-450) 10^3/uL Neut % (Auto) (42.2-75.2) % Lymph % (Auto) (20.5-50.1) % [place] % (Auto) (2-8) % Eos % (Auto) (1.0-3.0) % Baso % (Auto) (0.0-1.0) % Sodium 138 (135-145) mmol/L Potassium 4.0 (3.6-5.0) mmol/L Chloride 105 (101-111) mmol/L Carbon Dioxide 26.0 (21.0-31.0) mmol/L Anion Gap 11.0 BUN 8 (7-18) mg/dL Creatinine 0.8 (0.6-1.3) mg/dL Est Cr Clr Drug Dosing 162.69 mL/min Estimated GFR (MDRD) > 60 Glucose 88 (74-105) mg/dL Calcium 8.5 (8.4-10.2) mg/dl Urine Color (YELLOW) Urine Appearance (CLEAR) Urine pH (5.0-9.0) Ur Specific Counce (1.005-1.030) Urine Protein (NEGATIVE) Urine Glucose (UA) (NEGATIVE) Urine Ketones (NEGATIVE) Urine Occult Blood (NEGATIVE) Urine Nitrite (NEGATIVE) Urine Bilirubin (NEGATIVE) Urine Urobilinogen (0.2-1.0) mg/dL Ur Leukocyte Esterase (NEGATIVE) Urine RBC /HPF Urine WBC (0-5/HPF) /HPF Ur Epithelial Cells /HPF Amorphous Sediment (0/HPF) /HPF Urine Bacteria (0-FEW/HPF) /HPF Urine Mucus /LPF Urine Opiates Screen (NEGATIVE) Ur Oxycodone Screen (NEGATIVE) Urine Methadone Screen (NEGATIVE) Ur Barbiturates Screen (NEGATIVE) U Tricyclic Antidepress (NEGATIVE) Ur Phencyclidine Scrn (NEGATIVE) Ur Amphetamine Screen (NEGATIVE) U Methamphetamines Scrn (NEGATIVE) Urine MDMA Screen (NEGATIVE) U Benzodiazepines Scrn (NEGATIVE) Urine Cocaine Screen (NEGATIVE) U Marijuana (THC) Screen (NEGATIVE) Med Orders - Current: Current Medications Acetaminophen (Tylenol) 650 mg PO Q4H PRN PRN Reason: Pain Last Admin: 09/23/17 23:55 Dose: 650 mg Folic Acid (Folic Acid) 1 mg PO DAILY [facility] Last Admin: 09/24/17 08:19 Dose: 1 mg Heparin Sodium (Porcine) (Heparin Sodium) 5,000 units SUBCUT Q8HR RUDDY Last Admin: 09/24/17 06:53 Dose: 5,000 units Potassium Chloride/Sodium Chloride (Normal Saline With 20 Meq Kcl) 1,000 mls @ 100 mls/hr IV ASDIRECTED [facility] Last Admin: 09/24/17 08:32 Dose: 100 mls/hr Lorazepam (Ativan) 0 mg PO Q1H PRN; Protocol PRN Reason: Withdrawal Symptoms Last Admin: 09/23/17 20:49 Dose: 1 mg Lorazepam (Ativan) 1 mg IVPUSH ASDIRECTED PRN; Protocol PRN Reason: withdrawal Multivitamins/Minerals (Vitamins And Minerals) 1 tab PO WITHBREAKFAST [facility] Last Admin: 09/24/17 08:19 Dose: 1 tab Ondansetron HCl (Zofran Odt) 4 mg PO Q4H PRN PRN Reason: nausea, able to take PO Ondansetron HCl (Zofran) 4 mg IVPUSH Q4H PRN PRN Reason: Nausea/Vomiting Sodium Chloride (Saline Flush) 10 ml FLUSH ASDIRECTED PRN PRN Reason: Keep Vein Open Last Admin: 09/23/17 08:32 Dose: 10 ml Thiamine HCl (Vitamin B-1) 100 mg PO DAILY [facility] Last Admin: 09/24/17 08:19 Dose: 100 mg Zolpidem Tartrate (Ambien) 5 mg PO BEDTIME PRN PRN Reason: Sleep Discontinued Medications Multivitamins/Minerals 10 ml/Thiamine HCl 100 mg/ Folic Acid 1 mg/ Lactated Ringer's 1,011.2 mls @ 999 mls/hr IV .BOLUS ONE Stop: 09/23/17 09:14 Last Admin: 09/23/17 08:31 Dose: 999 mls/hr Lorazepam (Ativan) 2 mg IVPUSH ONETIME ONE Stop: 09/23/17 08:15 Last Admin: 09/23/17 08:31 Dose: 2 mg Ondansetron HCl (Zofran) 4 mg IV ONETIME ONE Stop: 09/23/17 08:15 Last Admin: 09/23/17 08:32 Dose: 4 mg - Exam General: Alert, Oriented Neck: Supple Lungs: Clear to Auscultation, Normal Respiratory Effort Cardiovascular: Regular Rate, Regular Rhythm GI/Abdominal Exam: Normal Bowel Sounds Extremities: No Pedal Edema Psy/Mental Status: Anxious (mild ) - Problem List & Annotations (1) Alcohol abuse SNOMED Code(s): 55839710 Code(s): F10.10 - ALCOHOL ABUSE, UNCOMPLICATED Status: Acute Current Visit: No - Problem List Review Problem List Initiated/Reviewed/Updated: Yes - My Orders Last 24 Hours: My Active Orders 09/23/17 10:54 Admission Status [Patient Status] [ADT] Routine 09/23/17 11:00 NS + KCl 20mEq/L [Normal Saline with 20 mEq KCl] 1,000 ml IV ASDIRECTED 09/23/17 11:30 Folic Acid 1 mg PO DAILY Thiamine [Vitamin B-1] 100 mg PO DAILY 09/23/17 12:00 Multivitamins/Minerals [Vitamins and Minerals] 1 tab PO WITHBREAKFAST 09/23/17 14:00 Heparin Sodium 5,000 units SUBCUT Q8HR 09/23/17 23:37 Acetaminophen [Tylenol] 650 mg PO Q4H PRN 09/23/17 Lunch Regular Diet [DIET] 09/25/17 05:15 BASIC METABOLIC PANEL,BMP [CHEM] AM CBC WITH AUTO DIFF [HEME] AM - Plan Plan:: 1. Alcohol abuse. We will continue to give the patient IV fluids with IV electrolyte replacement. Follow electrolytes. 2. Chronic Alcohol addiction. follow with alcohol treatment programs. 3. Chronic alcohol use. Supplement thiamine, folate and multivitamin. 4. High Risk for alcohol withdrawal. Frequent evaluations and titration of Ativan per the CIWA protocol will monitor for another 24 h 5. Deep venous thrombosis (DVT) prophylaxis will be with subcutaneous heparin.
[2017-09-24] MEDS: Sodium Chloride 0.9% 10 ML Syringe FLUSH PRN (22:15)
[2017-09-25] MEDS: Heparin Sodium 5,000 Units/ML Vial SUBCUT SCH (05:49)
[2017-09-25 06:45] LABS: CHLORIDE,CL 104 mmol/L (101-111); SODIUM,NA 138 mmol/L (135-145)
[2017-09-25] MEDS: Folic Acid 1 MG Tab PO SCH (08:41)
[2017-09-25] MEDS: Multivitamins, Therapeutic with Minerals Tab PO SCH (08:41)
[2017-09-25] MEDS: Thiamine 100 MG Tab PO SCH (08:41)
[2017-09-25] MEDS ORDERED: Potassium Chloride 10 MEQ Tab.ER PO ONE (10:00)
--- NOTE | 2017-09-25 10:06 | PCM.DCSUM1 ---
Discharge Summary - Hospital Course Free Text/Narrative:: 1. Alcohol abuse. treated the patient with IV fluids with IV electrolyte replacement. 2. Chronic Alcohol addiction. follow with alcohol treatment programs. He is planning for inpatient treatment at the [facility] 3. Chronic alcohol use. Supplement thiamine, folate and multivitamin. - Discharge Data Discharge Date: 09/25/17 Discharge Disposition: Home, Self-Care 01 Condition: Good - Discharge Diagnosis/Problem(s) (1) Alcohol abuse SNOMED Code(s): 64266511 ICD Code: F10.10 - ALCOHOL ABUSE, UNCOMPLICATED Status: Acute Current Visit: No - Patient Instructions Diet: Heart Healthy Diet Activity: As Tolerated - Discharge Plan Prescriptions/Med Rec: Folic Acid 1 mg PO DAILY #14 tablet Thiamine [Vitamin B-1] 100 mg PO DAILY #14 tablet Home Medications: Home Meds Multivitamin [Multi-Vitamin Daily] 1 tab PO DAILY 09/23/17 [History] Folic Acid 1 mg PO DAILY #14 tablet 09/25/17 [Rx] Thiamine [Vitamin B-1] 100 mg PO DAILY #14 tablet 09/25/17 [Rx] Referrals: PCP,Unobtain [Ordering Only Provider] - (in 2-3 days re: alcohol addiction) - Discharge Summary/Plan Comment DC Time >30 min.: No - General Info Date of Service: 09/25/17 - Review of Systems General: Denies: Fever, Weakness Pulmonary: Denies: Shortness of Breath Cardiovascular: Denies: Chest Pain Gastrointestinal: Denies: Abdominal Pain Neurological: Denies: Confusion - Patient Data Vitals - Most Recent: Last Vital Signs Temp 37.1 C 09/25/17 07:00 Pulse 94 09/25/17 07:00 Resp 17 09/25/17 07:00 BP 143/87 H 09/25/17 07:00 Pulse Ox 95 09/25/17 07:00 Weight - Most Recent: 207.382 kg I&O - Last 24 hours: Intake & Output 09/24/17 09/25/17 09/25/17 22:59 06:59 14:59 Intake Total 1830 554 740 Balance 1830 554 740 Lab Results - Last 24 hrs: Laboratory Results - last 24 hr 09/25/17 09/25/17 Range/Units 06:15 06:15 WBC 8.0 (5.0-10.0) 10^3/uL RBC 4.85 (4.6-6.2) 10^6/uL Hgb 13.5 L (14.0-18.0) g/dL Hct 42.0 (40.0-54.0) % MCV 86.6 (80-100) fL MCH 27.8 (27.0-34.0) pg MCHC 32.1 L (33.0-35.0) g/dL Plt Count 260 (150-450) 10^3/uL Neut % (Auto) 64.1 (42.2-75.2) % Lymph % (Auto) 21.2 (20.5-50.1) % [place] % (Auto) 8.6 H (2-8) % Eos % (Auto) 5.9 H (1.0-3.0) % Baso % (Auto) 0.2 (0.0-1.0) % Sodium 138 (135-145) mmol/L Potassium 3.5 L (3.6-5.0) mmol/L Chloride 104 (101-111) mmol/L Carbon Dioxide 26.0 (21.0-31.0) mmol/L Anion Gap 11.5 BUN 9 (7-18) mg/dL Creatinine 0.8 (0.6-1.3) mg/dL Est Cr Clr Drug Dosing 162.69 mL/min Estimated GFR (MDRD) > 60 Glucose 89 (74-105) mg/dL Calcium 8.8 (8.4-10.2) mg/dl Med Orders - Current: Current Medications Acetaminophen (Tylenol) 650 mg PO Q4H PRN PRN Reason: Pain Last Admin: 09/23/17 23:55 Dose: 650 mg Folic Acid (Folic Acid) 1 mg PO DAILY [facility] Last Admin: 09/25/17 08:41 Dose: 1 mg Heparin Sodium (Porcine) (Heparin Sodium) 5,000 units SUBCUT Q8HR RUDDY Last Admin: 09/25/17 05:49 Dose: 5,000 units Lorazepam (Ativan) 0 mg PO Q1H PRN; Protocol PRN Reason: Withdrawal Symptoms Last Admin: 09/23/17 20:49 Dose: 1 mg Lorazepam (Ativan) 1 mg IVPUSH ASDIRECTED PRN; Protocol PRN Reason: withdrawal Multivitamins/Minerals (Vitamins And Minerals) 1 tab PO WITHBREAKFAST [facility] Last Admin: 09/25/17 08:41 Dose: 1 tab Ondansetron HCl (Zofran Odt) 4 mg PO Q4H PRN PRN Reason: nausea, able to take PO Ondansetron HCl (Zofran) 4 mg IVPUSH Q4H PRN PRN Reason: Nausea/Vomiting Potassium Chloride (Klor-Con 10) 20 meq PO ONETIME ONE Stop: 09/25/17 10:01 Sodium Chloride (Saline Flush) 10 ml FLUSH ASDIRECTED PRN PRN Reason: Keep Vein Open Last Admin: 09/24/17 22:15 Dose: 10 ml Thiamine HCl (Vitamin B-1) 100 mg PO DAILY [facility] Last Admin: 09/25/17 08:41 Dose: 100 mg Zolpidem Tartrate (Ambien) 5 mg PO BEDTIME PRN PRN Reason: Sleep Discontinued Medications Multivitamins/Minerals 10 ml/Thiamine HCl 100 mg/ Folic Acid 1 mg/ Lactated Ringer's 1,011.2 mls @ 999 mls/hr IV .BOLUS ONE Stop: 09/23/17 09:14 Last Admin: 09/23/17 08:31 Dose: 999 mls/hr Potassium Chloride/Sodium Chloride (Normal Saline With 20 Meq Kcl) 1,000 mls @ 100 mls/hr IV ASDIRECTED [facility] Last Admin: 09/24/17 08:32 Dose: 100 mls/hr Lorazepam (Ativan) 2 mg IVPUSH ONETIME ONE Stop: 09/23/17 08:15 Last Admin: 09/23/17 08:31 Dose: 2 mg Ondansetron HCl (Zofran) 4 mg IV ONETIME ONE Stop: 09/23/17 08:15 Last Admin: 09/23/17 08:32 Dose: 4 mg - Exam General: Reports: Alert, Oriented Neck: Reports: Supple Lungs: Reports: Clear to Auscultation, Normal Respiratory Effort Cardiovascular: Reports: Regular Rate, Regular Rhythm GI/Abdominal Exam: Normal Bowel Sounds, Soft, Non-Tender Extremities: No Pedal Edema
[2017-09-25 11:14] VITALS: BP 140/78
== END 2017-09-25 11:20 | disposition home or self-care (01) ==
LOC: DL.ED 07:56 → INTOOBSV 09:25 → DL.MS 09:25 → UNDOADMOB 09:25 → DL.MS 10:54
PROVIDERS: ADMIT Internal Medicine; ATTEND Internal Medicine
DX: F10.20 Alcohol dependence, uncomplicated (principal); F41.9 Anxiety disorder, unspecified; E66.9 Obesity, unspecified; Y90.0 Blood alcohol level of less than 20 mg/100 ml; Z79.899 Other long term (current) drug therapy; Z68.30 Body mass index [BMI] 30.0-30.9, adult; Z90.89 Acquired absence of other organs
CPT/HCPCS: 36415; 80048; 80053; 80305; 81001; 82150; 83690; 83735; 84443; 85025; 96360; 96365; 96375; 99284; A9270-GY; G0480; J1644; J2060; J2405; J3411; J3480; J3490; J7050; J7120

== ENCOUNTER 2017-09-29 01:15 | Emergency (ER) | payer MEDICAID ==
[2017-09-29 01:24] VITALS: BP 162/89
[2017-09-29] MEDS ORDERED: Ibuprofen 600 MG Tab PO ONE (01:29)
[2017-09-29 02:13] LABS: CHLORIDE,CL 103 mmol/L (101-111); SODIUM,NA 137 mmol/L (135-145)
--- NOTE | 2017-09-29 02:25 | EDM.PDOC ---
ED HPI GENERAL MEDICAL PROBLEM - General Chief Complaint: Lower Extremity Injury/Pain Stated Complaint: FOOT PAIN [id number] Time Seen by Provider: 09/29/17 01:30 Source of Information: Reports: Patient History Limitations: Reports: No Limitations - History of Present Illness INITIAL COMMENTS - FREE TEXT/NARRATIVE: c/o pain to right great toe and forefoot starting this am. No injury. Relays hx of gout. Has not takien anything for pain. - Related Data Allergies Allergy/AdvReac Type Severity Reaction Status Date / Time No Known Allergies Allergy Verified 09/29/17 01:19 Home Meds: Home Meds . [No Known Home Meds] 09/29/17 [History] Past Medical History - Past Health History Medical/Surgical History: Denies Medical/Surgical History HEENT History: Reports: Impaired Vision Psychiatric History: Reports: Addiction, Anxiety Endocrine/Metabolic History: Reports: Obesity/BMI 30+ - Infectious Disease History Infectious Disease History: Reports: Chicken Pox - Past Surgical History HEENT Surgical History: Reports: Tonsillectomy Social & Family History - Family History Family Medical History: Noncontributory - Caffeine Use Caffeine Use: Reports: Coffee, Energy Drinks, Soda, Tea - Living Situation & Occupation Living situation: Reports: Single, with Family Occupation: Unemployed Review of Systems - Review of Systems Review Of Systems: ROS reveals no pertinent complaints other than HPI. ED EXAM, GENERAL - Physical Exam Exam: See Below Exam Limited By: No Limitations General Appearance: Alert, Obese (morbid) Eye Exam: Bilateral Eye: EOMI Ears: Normal External Exam Nose: Nasal Deformity Throat/Mouth: Normal Voice Neck: Full Range of Motion Respiratory/Chest: No Respiratory Distress, Lungs Clear Cardiovascular: Regular Rate, Rhythm Extremities: Joint Swelling (right first metatarsal, no redness, tender to palpate) Neurological: Alert, Oriented, Normal Cognition Skin Exam: Warm, Dry, Intact, Normal Color Course - Vital Signs Last Recorded V/S: Last Vital Signs Temp 99.1 F 09/29/17 01:21 Pulse 110 H 09/29/17 01:21 Resp 20 09/29/17 01:21 BP 162/89 H 09/29/17 01:21 Pulse Ox 96 09/29/17 01:21 - Orders/Labs/Meds Labs: Laboratory Tests 09/29/17 09/29/17 Range/Units 01:38 01:38 WBC 12.8 H (5.0-10.0) 10^3/uL RBC 5.32 (4.6-6.2) 10^6/uL Hgb 15.2 D (14.0-18.0) g/dL Hct 46.4 (40.0-54.0) % MCV 87.2 (80-100) fL MCH 28.6 (27.0-34.0) pg MCHC 32.8 L (33.0-35.0) g/dL Plt Count 288 (150-450) 10^3/uL Neut % (Auto) 76.0 H (42.2-75.2) % Lymph % (Auto) 10.4 L (20.5-50.1) % [place] % (Auto) 9.1 H (2-8) % Eos % (Auto) 4.3 H (1.0-3.0) % Baso % (Auto) 0.2 (0.0-1.0) % Sodium 137 (135-145) mmol/L Potassium 3.8 (3.6-5.0) mmol/L Chloride 103 (101-111) mmol/L Carbon Dioxide 28.0 (21.0-31.0) mmol/L Anion Gap 9.8 BUN 12 (7-18) mg/dL Creatinine 1.0 (0.6-1.3) mg/dL Est Cr Clr Drug Dosing 130.15 mL/min Estimated GFR (MDRD) > 60 BUN/Creatinine Ratio 12.00 Glucose 100 (74-105) mg/dL Uric Acid 8.8 H (2.6-7.2) mg/dL Calcium 8.8 (8.4-10.2) mg/dl Total Bilirubin 0.8 (0.2-1.0) mg/dL AST 49 H (10-42) IU/L ALT 107 H (10-60) IU/L Alkaline Phosphatase 77 (42-121) IU/L Total Protein 8.3 H (6.7-8.2) g/dl Albumin 4.0 (3.2-5.5) g/dl Globulin 4.3 Albumin/Globulin Ratio 0.93 Meds: Medications Discontinued Medications Generic Name Dose Route Start Last Admin Trade Name Freq PRN Reason Stop Dose Admin Ibuprofen 600 mg 09/29/17 01:29 09/29/17 01:46 Motrin PO 09/29/17 01:30 600 mg ONETIME ONE Administration Departure - Departure Time of Disposition: 02:18 Disposition: Home, Self-Care 01 Condition: Good ( ) Clinical Impression: Gout attack Qualifiers: Gout site: toe Gout etiology: unspecified cause Laterality: right Qualified Code(s): M10.9 - Gout, unspecified - Discharge Information Instructions: Gout Forms: ED Department Discharge Additional Instructions: increase fluids ibuprofen 600mg one three times daily for 10 days follow up in clinic if not improving
== END 2017-09-29 02:27 | disposition home or self-care (01) ==
LOC: DL.ED 01:15
DX: M10.9 Gout, unspecified (principal); E66.9 Obesity, unspecified
CPT/HCPCS: 36415; 80053; 84550; 85025; 99284; A9270

== ENCOUNTER 2018-01-15 23:24 | Emergency (ER) | payer MEDICAID ==
[2018-01-15 23:41] VITALS: BP 154/100
[2018-01-16] MEDS ORDERED: LORazepam 2 MG/ML Syringe IM ONE (00:03)
--- NOTE | 2018-01-16 00:08 | EDM.PDOCBH ---
ED HPI GENERAL MEDICAL PROBLEM - General Chief Complaint: Behavioral/Psych Stated Complaint: ANXIETY ATTACK [id number] Time Seen by Provider: 01/16/18 00:03 Source of Information: Reports: Patient History Limitations: Reports: No Limitations - History of Present Illness INITIAL COMMENTS - FREE TEXT/NARRATIVE: states has recurrent anxiety attack. takes no Rx and not seen anyone for it. tonight it came on watching a war movie. - Related Data Allergies Allergy/AdvReac Type Severity Reaction Status Date / Time No Known Allergies Allergy Verified 09/29/17 01:19 Home Meds: Home Meds . [No Known Home Meds] 09/29/17 [History] Past Medical History - Past Health History Medical/Surgical History: Denies Medical/Surgical History HEENT History: Reports: Impaired Vision Psychiatric History: Reports: Addiction, Anxiety, Panic Attack Endocrine/Metabolic History: Reports: Obesity/BMI 30+ Dermatologic History: Reports: Other (See Below) Other Dermatologic History: severe acne - Infectious Disease History Infectious Disease History: Reports: Chicken Pox - Past Surgical History HEENT Surgical History: Reports: Tonsillectomy Social & Family History - Family History Family Medical History: Noncontributory - Tobacco Use Smoking Status *Q: Former Smoker Used Tobacco, but Quit: Yes Month/Year Tobacco Last Used: 12/2015 - Caffeine Use Caffeine Use: Reports: Coffee, Energy Drinks - Recreational Drug Use Recreational Drug Use: Yes Drug Use in Last 12 Months: Yes Recreational Drug Type: Reports: Marijuana/Hashish Recreational Drug Use Frequency: Weekly - Living Situation & Occupation Living situation: Reports: Single, with Family Occupation: Unemployed ED ROS GENERAL - Review of Systems Review Of Systems: ROS reveals no pertinent complaints other than HPI. ED EXAM, BEHAVIORAL HEALTH - Physical Exam Exam: See Below Exam Limited By: No Limitations General Appearance: Alert, WD/WN, Anxious, Mild Distress Eye Exam: Bilateral Eye: PERRL (pupils ER @ 4mm) Ears: Hearing Grossly Normal Throat/Mouth: Normal Voice, No Airway Compromise Head: Atraumatic Respiratory/Chest: Lungs Clear, Normal Breath Sounds Cardiovascular: Regular Rate, Rhythm GI/Abdominal: Soft, Non-Tender Neurological: Alert, Normal Cognition, Normal Gait, No Motor/Sensory Deficits, Oriented x 3 Psychiatric: Alert, Restless, Other (anxious) Skin Exam: Warm, Dry, Normal color COURSE, BEHAVIORAL HEALTH COMP - Course Vital Signs: Last Vital Signs Temp 36.8 C 01/15/18 23:30 Pulse 124 H 01/15/18 23:30 Resp 22 H 01/15/18 23:30 BP 154/100 H 01/15/18 23:30 Pulse Ox 98 01/15/18 23:30 Orders, Labs, Meds: Laboratory Tests 01/15/18 01/15/18 Range/Units 23:26 23:44 Urine Color Dark yellow (YELLOW) Urine Appearance Slightly cloudy (CLEAR) Urine pH 6.5 (5.0-9.0) Ur Specific [place] 1.020 (1.005-1.030) Urine Protein Negative (NEGATIVE) Urine Glucose (UA) Negative (NEGATIVE) Urine Ketones Negative (NEGATIVE) Urine Occult Blood Negative (NEGATIVE) Urine Nitrite Negative (NEGATIVE) Urine Bilirubin Negative (NEGATIVE) Urine Urobilinogen 1.0 (0.2-1.0) mg/dL Ur Leukocyte Esterase Negative (NEGATIVE) Urine RBC Not seen /HPF Urine WBC Not seen (0-5/HPF) /HPF Ur Epithelial Cells Rare /HPF Amorphous Sediment Few (0/HPF) /HPF Urine Bacteria Rare (0-FEW/HPF) /HPF Urine Mucus Moderate H /LPF Urine Opiates Screen Negative (NEGATIVE) Ur Oxycodone Screen Negative (NEGATIVE) Urine Methadone Screen Negative (NEGATIVE) Ur Barbiturates Screen Negative (NEGATIVE) U Tricyclic Antidepress Negative (NEGATIVE) Ur Phencyclidine Scrn Negative (NEGATIVE) Ur Amphetamine Screen Negative (NEGATIVE) U Methamphetamines Scrn Negative (NEGATIVE) Urine MDMA Screen Negative (NEGATIVE) U Benzodiazepines Scrn Negative (NEGATIVE) Urine Cocaine Screen Negative (NEGATIVE) U Marijuana (THC) Screen Positive H (NEGATIVE) Medications Discontinued Medications Generic Name Dose Route Start Last Admin Trade Name Leroyq PRN Reason Stop Dose Admin Lorazepam 2 mg 01/16/18 00:03 01/16/18 00:19 Ativan IM 01/16/18 00:04 2 mg ONETIME ONE Administration Departure - Departure Time of Disposition: 00:40 Disposition: Home, Self-Care 01 Condition: Good Clinical Impression: Anxiety - Discharge Information Instructions: Panic Attack, [id number] Referrals: Penny Schuler NP [Primary Care Provider] - Forms: ED Department Discharge Additional Instructions: 1) see clinic tomorrow for anxiety problems
== END 2018-01-16 00:40 | disposition home or self-care (01) ==
LOC: DL.ED 23:24
DX: F41.9 Anxiety disorder, unspecified (principal); E66.9 Obesity, unspecified; Z87.891 Personal history of nicotine dependence
CPT/HCPCS: 80305; 81001; 96372; 99283; J2060

== ENCOUNTER 2018-02-23 10:22 | Emergency (ER) | payer OTHER ==
[2018-02-23 10:32] VITALS: BP 146/88
--- NOTE | 2018-02-23 10:32 | EDM.PDOCBH ---
ED HPI GENERAL MEDICAL PROBLEM - General Chief Complaint: Drug or Alcohol Abuse Stated Complaint: [id number] ANXIETY Time Seen by Provider: 02/23/18 10:32 Source of Information: Reports: Patient, Old Records, RN, RN Notes Reviewed History Limitations: Reports: No Limitations - History of Present Illness INITIAL COMMENTS - FREE TEXT/NARRATIVE: Pt presents to ER from home by POV with c/o waking this morning with severe anxiety, which quickly evolved into a "full blown panic attack". Pt denies any known trigger for the anxiety. He report a long Hx of severe anxiety, for which he "self medicates" by drinking alcohol. Pt admits that he drank about a gallon of whisky yesterday. He denies any alcohol consumption today. He denies any pain , SOB, N/V, tremors, confusion, or recent injury. Pt states that he plans to go to alcohol treatment soon. Onset: Today Duration: Chronic, Recurring Location: Reports: Generalized Severity: Severe Improves with: Reports: None Worsens with: Reports: None Associated Symptoms: Reports: No Other Symptoms Back Pain Score (Numeric/FACES): 7 - Related Data Allergies Allergy/AdvReac Type Severity Reaction Status Date / Time No Known Allergies Allergy Verified 02/23/18 10:32 Home Meds: Home Meds . [No Known Home Meds] 09/29/17 [History] Past Medical History - Past Health History Medical/Surgical History: Denies Medical/Surgical History HEENT History: Reports: Impaired Vision Psychiatric History: Reports: Addiction, Anxiety, Panic Attack Endocrine/Metabolic History: Reports: Obesity/BMI 30+ Dermatologic History: Reports: Other (See Below) Other Dermatologic History: severe acne - Infectious Disease History Infectious Disease History: Reports: Chicken Pox - Past Surgical History HEENT Surgical History: Reports: Tonsillectomy Social & Family History - Family History Family Medical History: Noncontributory - Tobacco Use Smoking Status *Q: Current Some Day Smoker Tobacco Use Within Last Twelve Months: Cigarettes - Caffeine Use Caffeine Use: Reports: Coffee, Energy Drinks, Soda, Tea - Alcohol Use Alcohol Use History: Yes Days Per Week of Alcohol Use: 7 Alcohol Use Frequency: Binges, Daily - Living Situation & Occupation Living situation: Reports: Single, with Family Occupation: Unemployed ED ROS GENERAL - Review of Systems Review Of Systems: ROS reveals no pertinent complaints other than HPI. ED EXAM, BEHAVIORAL HEALTH - Physical Exam Exam: See Below Exam Limited By: No Limitations General Appearance: Alert, No Apparent Distress, Anxious Eye Exam: Bilateral Eye: EOMI, Normal Inspection, PERRL Ears: Normal External Exam, Hearing Grossly Normal Nose: Normal Mucosa, No Blood Throat/Mouth: Normal Inspection, Normal Lips, Normal Teeth, Normal Gums, Normal Oropharynx, Normal Voice, No Airway Compromise Head: Atraumatic, Normocephalic Neck: Normal Inspection Respiratory/Chest: No Respiratory Distress, Lungs Clear, Normal Breath Sounds, No Accessory Muscle Use, Chest Non-Tender Cardiovascular: Regular Rate, Rhythm, No Edema, Tachycardia GI/Abdominal: Normal Bowel Sounds, Soft, Non-Tender Back Exam: Normal Inspection Extremities: Normal Inspection Neurological: Alert, CN II-XII Intact, Normal Cognition, Normal Gait, No Motor/ Sensory Deficits, Oriented x 3 Psychiatric: Depressed Mood, Other (Anxious). No: Suicidal Plan, Suicidal Thoughts Skin Exam: Warm, Dry, Intact COURSE, BEHAVIORAL HEALTH COMP - Course Vital Signs: Last Vital Signs Temp 36.3 C 02/23/18 10:28 Pulse 112 H 02/23/18 10:28 Resp 16 02/23/18 10:28 BP 146/88 H 02/23/18 10:28 Pulse Ox 97 02/23/18 10:28 Orders, Labs, Meds: Medications Discontinued Medications Generic Name Dose Route Start Last Admin Trade Name Isma PRN Reason Stop Dose Admin Lorazepam 2 mg 02/23/18 10:47 02/23/18 11:03 Ativan PO 02/23/18 10:48 2 mg ONETIME ONE Administration Discharge vs Psych Eval/Treatment:: 02/23/18 10:54 Pt is not suicidal, and not deemed to be a danger to himself or others. Pt plans to seek alcohol treatment on his own. He declines any further diagnostic evaluation/tests, or any referral for mental health or alcohol treatment services at this time. Departure - Departure Time of Disposition: 11:25 Disposition: Home, Self-Care 01 Condition: Good Clinical Impression: Severe anxiety with panic, Alcohol abuse - Discharge Information *PRESCRIPTION DRUG MONITORING PROGRAM REVIEWED*: No *COPY OF PRESCRIPTION DRUG MONITORING REPORT IN PATIENT GIOVANNY: No Instructions: Alcohol Use Disorder, Generalized Anxiety Disorder, Adult, Panic Attack Forms: ED Department Discharge Additional Instructions: Rx: Lorazepam 1mg *Do not drive or drink alcohol while under the influence of this medication. Follow up in clinic for recheck if needed. Contact the [facility] for assistance with anxiety and for help with alcohol treatment.
[2018-02-23] MEDS ORDERED: LORazepam 1 MG Tab PO ONE (10:47)
== END 2018-02-23 11:13 | disposition home or self-care (01) ==
LOC: DL.ED 10:22
DX: F41.0 Panic disorder [episodic paroxysmal anxiety] (principal); F10.10 Alcohol abuse, uncomplicated; F17.210 Nicotine dependence, cigarettes, uncomplicated
CPT/HCPCS: 99283; A9270

== ENCOUNTER 2018-02-25 20:17 | Emergency (ER) | payer OTHER ==
[2018-02-25 20:39] VITALS: BP 145/81
--- NOTE | 2018-02-25 22:16 | EDM.PDOCBH ---
ED HPI GENERAL MEDICAL PROBLEM - General Chief Complaint: Drug or Alcohol Abuse Stated Complaint: ANXIETY [id number] Time Seen by Provider: 02/25/18 21:00 Source of Information: Reports: Family History Limitations: Reports: No Limitations - History of Present Illness INITIAL COMMENTS - FREE TEXT/NARRATIVE: ED with brother, states patient gone for 2 hours tonight and came back with " pot attack", admitted to use of pot earlier and then got hot and felt anxious, patient hx of anxiety attacks usually associated with ETOH. Brother unsure but states thinks he has been drinking today - Related Data Allergies Allergy/AdvReac Type Severity Reaction Status Date / Time No Known Allergies Allergy Verified 02/26/18 08:24 Home Meds: Home Meds LORazepam [Ativan] 0.5 mg PO DAILY 02/26/18 [History] Past Medical History - Past Health History Medical/Surgical History: Denies Medical/Surgical History HEENT History: Reports: Impaired Vision Cardiovascular History: Reports: None Respiratory History: Reports: None Gastrointestinal History: Reports: None Genitourinary History: Reports: None Musculoskeletal History: Reports: Gout Neurological History: Reports: None Psychiatric History: Reports: Addiction, Anxiety, Panic Attack Endocrine/Metabolic History: Reports: Obesity/BMI 30+ Hematologic History: Reports: None Immunologic History: Reports: None Oncologic (Cancer) History: Reports: None Dermatologic History: Reports: Other (See Below) Other Dermatologic History: severe acne - Infectious Disease History Infectious Disease History: Reports: Chicken Pox - Past Surgical History Head Surgeries/Procedures: Reports: None HEENT Surgical History: Reports: Tonsillectomy Social & Family History - Family History Family Medical History: Noncontributory - Tobacco Use Smoking Status *Q: Never Smoker Second Hand Smoke Exposure: Yes - Caffeine Use Caffeine Use: Reports: Coffee, Energy Drinks, Soda, Tea - Recreational Drug Use Recreational Drug Use: Yes Drug Use in Last 12 Months: Yes Recreational Drug Type: Reports: Marijuana/Hashish - Living Situation & Occupation Living situation: Reports: Single, with Family Occupation: Unemployed ED ROS GENERAL - Review of Systems Review Of Systems: ROS reveals no pertinent complaints other than HPI. ED EXAM, BEHAVIORAL HEALTH - Physical Exam Exam: See Below Exam Limited By: No Limitations General Appearance: No Apparent Distress, Obese (morbid), Other (drowsy, arouses easily ) Eye Exam: Bilateral Eye: EOMI (injected sclera), PERRL (5mm) Ears: Normal External Exam Nose: Normal Inspection Throat/Mouth: Normal Inspection Head: Atraumatic, Normocephalic Neck: Normal Inspection Respiratory/Chest: No Respiratory Distress, Lungs Clear Cardiovascular: Normal Peripheral Pulses Extremities: Normal Range of Motion Neurological: Alert, Oriented x 3 Psychiatric: Flat Affect Skin Exam: Warm, Dry, Intact COURSE, BEHAVIORAL HEALTH COMP - Course Vital Signs: Last Vital Signs Temp 99.3 F 02/25/18 20:34 Pulse 110 H 02/25/18 20:34 Resp 18 02/25/18 20:34 BP 145/81 H 02/25/18 20:34 Pulse Ox 95 02/25/18 20:34 Orders, Labs, Meds: Laboratory Tests 02/25/18 02/25/18 02/25/18 Range/Units 20:42 20:42 21:40 Urine Color Yellow (YELLOW) Urine Appearance Slightly cloudy (CLEAR) Urine pH 5.5 (5.0-9.0) Ur Specific [place] 1.020 (1.005-1.030) Urine Protein Negative (NEGATIVE) Urine Glucose (UA) Negative (NEGATIVE) Urine Ketones Negative (NEGATIVE) Urine Occult Blood Small H (NEGATIVE) Urine Nitrite Negative (NEGATIVE) Urine Bilirubin Negative (NEGATIVE) Urine Urobilinogen 0.2 (0.2-1.0) mg/dL Ur Leukocyte Esterase Negative (NEGATIVE) Urine RBC 5-10 H /HPF Urine WBC 0-5 (0-5/HPF) /HPF Ur Epithelial Cells Moderate H /HPF Urine Bacteria Moderate H (0-FEW/HPF) /HPF Urine Opiates Screen Negative (NEGATIVE) Ur Oxycodone Screen Negative (NEGATIVE) Urine Methadone Screen Negative (NEGATIVE) Ur Barbiturates Screen Negative (NEGATIVE) U Tricyclic Antidepress Negative (NEGATIVE) Ur Phencyclidine Scrn Negative (NEGATIVE) Ur Amphetamine Screen Negative (NEGATIVE) U Methamphetamines Scrn Negative (NEGATIVE) Urine MDMA Screen Negative (NEGATIVE) U Benzodiazepines Scrn Negative (NEGATIVE) Urine Cocaine Screen Negative (NEGATIVE) U Marijuana (THC) Screen Positive H (NEGATIVE) Ethyl Alcohol 212 mg/dL Departure - Departure Time of Disposition: 22:08 Disposition: Home, Self-Care 01 Condition: Good Clinical Impression: Alcohol abuse, Drug abuse - Discharge Information *PRESCRIPTION DRUG MONITORING PROGRAM REVIEWED*: Not Applicable Instructions: Substance Use Disorder and Mental Illness Forms: ED Department Discharge Additional Instructions: abstain from alcohol and drug use Follow with addiction counselor and primary care to manage anxiety
== END 2018-02-25 22:15 | disposition home or self-care (01) ==
LOC: DL.ED 20:17
DX: F10.10 Alcohol abuse, uncomplicated (principal); F19.10 Other psychoactive substance abuse, uncomplicated; Y90.7 Blood alcohol level of 200-239 mg/100 ml; E66.9 Obesity, unspecified
CPT/HCPCS: 36415; 80305; 81001; 99283; G0480

== ENCOUNTER 2018-02-26 08:14 | Emergency (ER) | payer OTHER ==
--- NOTE | 2018-02-26 08:22 | EDM.PDOCBH ---
ED HPI GENERAL MEDICAL PROBLEM - General Chief Complaint: Drug or Alcohol Abuse Stated Complaint: SEVERE AXIETY Time Seen by Provider: 02/26/18 08:19 Source of Information: Reports: Patient, Old Records, RN, RN Notes Reviewed History Limitations: Reports: No Limitations - History of Present Illness INITIAL COMMENTS - FREE TEXT/NARRATIVE: Pt presents to ER with c/o severe anxiety, alcohol abuse, and marijuana abuse. He was seen here on 02/23, and again yesterday 02/25/18 for the same problem. Pt states he cannot reduce his alcohol intake due to withdrawals and anxiety with panic attacks. Yesterday he tried to abstain from alcohol and had "withdrawals" . He smoked marijuana to try to relieve the alcohol withdrawals, but it seems to cause a panic attack. Pt states that he "cannot go on like this". He denies suicidal thoughts or plan. Duration: Chronic, Getting Worse, Recurring Location: Reports: Generalized Quality: Reports: Other (Denies pain.) Severity: Severe Improves with: Reports: None Worsens with: Reports: Other (Alcohol and marijuana use.) Associated Symptoms: Reports: No Other Symptoms Right Arm Pain Score (Numeric/FACES): 5 - Related Data Allergies Allergy/AdvReac Type Severity Reaction Status Date / Time No Known Allergies Allergy Verified 02/26/18 08:24 Home Meds: Home Meds LORazepam [Ativan] 0.5 mg PO DAILY 02/26/18 [History] Past Medical History - Past Health History Medical/Surgical History: Denies Medical/Surgical History HEENT History: Reports: Impaired Vision Cardiovascular History: Reports: None Respiratory History: Reports: None Gastrointestinal History: Reports: None Genitourinary History: Reports: None Musculoskeletal History: Reports: Gout Neurological History: Reports: None Psychiatric History: Reports: Addiction, Anxiety, Panic Attack Endocrine/Metabolic History: Reports: Obesity/BMI 30+ Hematologic History: Reports: None Immunologic History: Reports: None Oncologic (Cancer) History: Reports: None Dermatologic History: Reports: Other (See Below) Other Dermatologic History: severe acne - Infectious Disease History Infectious Disease History: Reports: Chicken Pox - Past Surgical History Head Surgeries/Procedures: Reports: None HEENT Surgical History: Reports: Tonsillectomy Social & Family History - Family History Family Medical History: Noncontributory - Caffeine Use Caffeine Use: Reports: Coffee, Energy Drinks, Soda, Tea - Alcohol Use Alcohol Use History: Yes Days Per Week of Alcohol Use: 7 (Up to 1 gallon of whisky per day.) Alcohol Use Frequency: Daily - Recreational Drug Use Recreational Drug Use: Yes Drug Use in Last 12 Months: Yes Recreational Drug Type: Reports: Marijuana/Hashish Recreational Drug Use Frequency: Binges - Living Situation & Occupation Living situation: Reports: Single, with Family Occupation: Unemployed ED ROS GENERAL - Review of Systems Review Of Systems: ROS reveals no pertinent complaints other than HPI. ED EXAM, BEHAVIORAL HEALTH - Physical Exam Exam: See Below Exam Limited By: No Limitations General Appearance: Alert, Anxious, Obese Eye Exam: Bilateral Eye: EOMI, Nystagmus (lateral gaze), PERRL, Other (no scleral icterus) Ears: Normal External Exam, Hearing Grossly Normal Nose: Normal Mucosa, No Blood Throat/Mouth: Normal Inspection, Normal Lips, Normal Voice, No Airway Compromise Head: Atraumatic, Normocephalic Respiratory/Chest: No Respiratory Distress, Lungs Clear, Normal Breath Sounds, No Accessory Muscle Use, Chest Non-Tender Cardiovascular: Regular Rate, Rhythm, No Edema, Tachycardia GI/Abdominal: Normal Bowel Sounds, Soft, Non-Tender, No Distention Back Exam: Normal Inspection Extremities: Normal Inspection Neurological: Alert, CN II-XII Intact, Normal Gait, No Motor/Sensory Deficits Psychiatric: Depressed Mood, Flat Affect, Withdrawn, Other (anxious) Skin Exam: Warm, Dry, Intact, Other (severe facial pustular/nodular rosacea with rhinophyma, chronic). No: Jaundice COURSE, BEHAVIORAL HEALTH COMP - Course Vital Signs: Last Vital Signs Temp 36.9 C 02/26/18 11:33 Pulse 102 H 02/26/18 11:33 Resp 16 02/26/18 11:33 BP 129/72 02/26/18 11:33 Pulse Ox 93 L 02/26/18 11:33 Orders, Labs, Meds: Active Orders 24 hr Category Date Time Status Peripheral IV Care [RC] . DIRECTED Care 02/26/18 08:34 Active LORazepam [Ativan] Med 02/26/18 11:38 Once 2 mg IVPUSH ONETIME ONE Sodium Chloride 0.9% @ 150 MLS/HR (1000ml) Med 02/26/18 11:45 Ordered Sodium Chloride 0.9% [Normal Saline] 1,000 ml IV ASDIRECTED Sodium Chloride 0.9% [Saline Flush] Med 02/26/18 08:34 Active 10 ml FLUSH ASDIRECTED PRN Peripheral IV Insertion Adult [OM.PC] Stat Oth 02/26/18 08:33 Ordered Medication Orders Lorazepam (Ativan) 2 mg IVPUSH ONETIME ONE Stop: 02/26/18 11:39 Sodium Chloride (Saline Flush) 10 ml FLUSH ASDIRECTED PRN PRN Reason: Keep Vein Open Last Admin: 02/26/18 08:56 Dose: 10 ml Admin: 02/26/18 08:54 Dose: 10 ml Laboratory Tests 02/26/18 02/26/18 02/26/18 Range/Units 08:33 08:33 08:43 WBC 5.6 (5.0-10.0) 10^3/uL RBC 5.43 (4.6-6.2) 10^6/uL Hgb 15.3 (14.0-18.0) g/dL Hct 46.7 (40.0-54.0) % MCV 86.0 (80-100) fL MCH 28.2 (27.0-34.0) pg MCHC 32.8 L (33.0-35.0) g/dL Plt Count 294 (150-450) 10^3/uL Neut % (Auto) 68.5 (42.2-75.2) % Lymph % (Auto) 16.4 L (20.5-50.1) % [place] % (Auto) 12.1 H (2-8) % Eos % (Auto) 2.3 (1.0-3.0) % Baso % (Auto) 0.7 (0.0-1.0) % Sodium (135-145) mmol/L Potassium (3.6-5.0) mmol/L Chloride (101-111) mmol/L Carbon Dioxide (21.0-31.0) mmol/L Anion Gap BUN (7-18) mg/dL Creatinine (0.6-1.3) mg/dL Est Cr Clr Drug Dosing mL/min Estimated GFR (MDRD) BUN/Creatinine Ratio Glucose (74-105) mg/dL Calcium (8.4-10.2) mg/dl Magnesium (1.8-2.5) mg/dL Total Bilirubin (0.2-1.0) mg/dL AST (10-42) IU/L ALT (10-60) IU/L Alkaline Phosphatase (42-121) IU/L Ammonia (11-35) umol/L Total Protein (6.7-8.2) g/dl Albumin (3.2-5.5) g/dl Globulin Albumin/Globulin Ratio Amylase (28-100) U/L Lipase (22-51) U/L TSH, Ultra Sensitive (0.45-5.33) uIu/mL Urine Color Yellow (YELLOW) Urine Appearance Clear (CLEAR) Urine pH 6.0 (5.0-9.0) Ur Specific Flushing 1.025 (1.005-1.030) Urine Protein Negative (NEGATIVE) Urine Glucose (UA) Negative (NEGATIVE) Urine Ketones Negative (NEGATIVE) Urine Occult Blood Negative (NEGATIVE) Urine Nitrite Negative (NEGATIVE) Urine Bilirubin Negative (NEGATIVE) Urine Urobilinogen 0.2 (0.2-1.0) mg/dL Ur Leukocyte Esterase Negative (NEGATIVE) Urine RBC Not seen /HPF Urine WBC 0-5 (0-5/HPF) /HPF Ur Epithelial Cells Rare /HPF Urine Bacteria Few (0-FEW/HPF) /HPF Urine Mucus Moderate H /LPF Salicylates Urine Opiates Screen Negative (NEGATIVE) Ur Oxycodone Screen Negative (NEGATIVE) Urine Methadone Screen Negative (NEGATIVE) Acetaminophen Ur Barbiturates Screen Negative (NEGATIVE) U Tricyclic Antidepress Negative (NEGATIVE) Ur Phencyclidine Scrn Negative (NEGATIVE) Ur Amphetamine Screen Negative (NEGATIVE) U Methamphetamines Scrn Negative (NEGATIVE) Urine MDMA Screen Negative (NEGATIVE) U Benzodiazepines Scrn Negative (NEGATIVE) Urine Cocaine Screen Negative (NEGATIVE) U Marijuana (THC) Screen Positive H (NEGATIVE) Ethyl Alcohol mg/dL 02/26/18 02/26/18 02/26/18 Range/Units 08:43 08:43 08:43 WBC (5.0-10.0) 10^3/uL RBC (4.6-6.2) 10^6/uL Hgb (14.0-18.0) g/dL Hct (40.0-54.0) % MCV (80-100) fL MCH (27.0-34.0) pg MCHC (33.0-35.0) g/dL Plt Count (150-450) 10^3/uL Neut % (Auto) (42.2-75.2) % Lymph % (Auto) (20.5-50.1) % [place] % (Auto) (2-8) % Eos % (Auto) (1.0-3.0) % Baso % (Auto) (0.0-1.0) % Sodium 139 (135-145) mmol/L Potassium 3.7 (3.6-5.0) mmol/L Chloride 104 (101-111) mmol/L Carbon Dioxide 25.0 (21.0-31.0) mmol/L Anion Gap 13.7 BUN 6 L (7-18) mg/dL Creatinine 0.8 (0.6-1.3) mg/dL Est Cr Clr Drug Dosing 162.69 mL/min Estimated GFR (MDRD) > 60 BUN/Creatinine Ratio 7.50 Glucose 103 (74-105) mg/dL Calcium 8.3 L (8.4-10.2) mg/dl Magnesium 1.7 L (1.8-2.5) mg/dL Total Bilirubin 0.6 (0.2-1.0) mg/dL AST 67 H (10-42) IU/L ALT 136 H (10-60) IU/L Alkaline Phosphatase 89 (42-121) IU/L Ammonia 20 (11-35) umol/L Total Protein 8.4 H (6.7-8.2) g/dl Albumin 4.0 (3.2-5.5) g/dl Globulin 4.4 Albumin/Globulin Ratio 0.91 Amylase 31 (28-100) U/L Lipase 35 (22-51) U/L TSH, Ultra Sensitive 0.56 (0.45-5.33) uIu/mL Urine Color (YELLOW) Urine Appearance (CLEAR) Urine pH (5.0-9.0) Ur Specific [place] (1.005-1.030) Urine Protein (NEGATIVE) Urine Glucose (UA) (NEGATIVE) Urine Ketones (NEGATIVE) Urine Occult Blood (NEGATIVE) Urine Nitrite (NEGATIVE) Urine Bilirubin (NEGATIVE) Urine Urobilinogen (0.2-1.0) mg/dL Ur Leukocyte Esterase (NEGATIVE) Urine RBC /HPF Urine WBC (0-5/HPF) /HPF Ur Epithelial Cells /HPF Urine Bacteria (0-FEW/HPF) /HPF Urine Mucus /LPF Salicylates < 4 Urine Opiates Screen (NEGATIVE) Ur Oxycodone Screen (NEGATIVE) Urine Methadone Screen (NEGATIVE) Acetaminophen < 10 Ur Barbiturates Screen (NEGATIVE) U Tricyclic Antidepress (NEGATIVE) Ur Phencyclidine Scrn (NEGATIVE) Ur Amphetamine Screen (NEGATIVE) U Methamphetamines Scrn (NEGATIVE) Urine MDMA Screen (NEGATIVE) U Benzodiazepines Scrn (NEGATIVE) Urine Cocaine Screen (NEGATIVE) U Marijuana (THC) Screen (NEGATIVE) Ethyl Alcohol < 5 mg/dL Medications Generic Name Dose Route Start Last Admin Trade Name Freq PRN Reason Stop Dose Admin Lorazepam 2 mg 02/26/18 11:38 Ativan IVPUSH 02/26/18 11:39 ONETIME ONE Sodium Chloride 10 ml 02/26/18 08:34 02/26/18 08:56 Saline Flush FLUSH 10 ml ASDIRECTED PRN Administration Keep Vein Open Discontinued Medications Generic Name Dose Route Start Last Admin Trade Name Freq PRN Reason Stop Dose Admin Multivitamins/Minerals 10 ml/ 1,011.2 mls @ 999 mls/hr 02/26/18 08:34 08:58 Thiamine HCl 100 mg/ Folic IV 02/26/18 09:34 999 mls/hr Acid 1 mg/ Lactated Ringer's .BOLUS ONE Administration Lorazepam 2 mg 02/26/18 08:34 02/26/18 08:53 Ativan IVPUSH 02/26/18 08:35 2 mg ONETIME ONE Administration Ondansetron HCl 4 mg 02/26/18 08:34 02/26/18 08:56 Zofran IV 02/26/18 08:35 4 mg ONETIME ONE Administration Discharge vs Psych Eval/Treatment:: 02/26/18 11:10 Pt with persistent tremors, tachycardia, and anxiety after Ativan 2mg IVP x1. Crisis shorthand teacher finds the pt willing to be admitted for management of withdrawal symptoms, then admission for alcohol and mental health treatment afterwards. rack production worker was unable to connect the pt with [facility] in [place]. I do not think the pt is medically stable enough to be discharged to a bed at the [facility] due to the severity of his withdrawal symptoms. I cannot confirm for certain whether the pt has had withdrawal seizures in the past or not. However, I am concerned about the risk of seizures as he has been drinking up to 1 gallon of whisky per day, and displayed withdrawal symptoms with tremors when his serum ethanol was at 215. Departure - Departure Time of Disposition: 11:46 Disposition: DC/Tfer to Acute Hospital 02 Condition: Serious Clinical Impression: Severe anxiety with panic, Alcohol abuse Alcohol withdrawal syndrome Qualifiers: Complication of substance-induced condition: with unspecified complication Qualified Code(s): F10.239 - Alcohol dependence with withdrawal, unspecified - Discharge Information *PRESCRIPTION DRUG MONITORING PROGRAM REVIEWED*: No *COPY OF PRESCRIPTION DRUG MONITORING REPORT IN PATIENT GIOVANNY: No Forms: ED Department Discharge, Interfacility Transfer EMTALA - My Orders Last 24 Hours: My Active Orders 02/26/18 08:33 Peripheral IV Insertion Adult [OM.PC] Stat 02/26/18 08:34 Peripheral IV Care [RC] . DIRECTED Sodium Chloride 0.9% [Saline Flush] 10 ml FLUSH ASDIRECTED PRN 02/26/18 11:38 LORazepam [Ativan] 2 mg IVPUSH ONETIME ONE 02/26/18 11:45 Sodium Chloride 0.9% @ 150 MLS/HR (1000ml) Sodium Chloride 0.9% [Normal Saline] 1,000 ml IV ASDIRECTED - Assessment/Plan Last 24 Hours: My Active Orders 02/26/18 08:33 Peripheral IV Insertion Adult [OM.PC] Stat 02/26/18 08:34 Peripheral IV Care [RC] . DIRECTED Sodium Chloride 0.9% [Saline Flush] 10 ml FLUSH ASDIRECTED PRN 02/26/18 11:38 LORazepam [Ativan] 2 mg IVPUSH ONETIME ONE 02/26/18 11:45 Sodium Chloride 0.9% @ 150 MLS/HR (1000ml) Sodium Chloride 0.9% [Normal Saline] 1,000 ml IV ASDIRECTED
[2018-02-26] MEDS ORDERED: LORazepam 2 MG/ML Syringe IVPUSH ONE ×2 (08:34→11:38)
[2018-02-26] MEDS ORDERED: MVI, Adult with Vitamin K 10 ML, Thiamine 100 MG, Folic Acid 1 MG in Lactated Ringers 1... IV ONE ×4 (08:34)
[2018-02-26] MEDS ORDERED: Ondansetron 4 MG/2 ML SDV IV ONE (08:34)
[2018-02-26] MEDS: Sodium Chloride 0.9% 10 ML Syringe FLUSH PRN ×2 (08:54→08:56)
[2018-02-26 09:10] LABS: ANION GAP 13.7; CHLORIDE,CL 104 mmol/L (101-111); SODIUM,NA 139 mmol/L (135-145)
[2018-02-26 09:12] LABS: ACETAMINOPHEN < 10
[2018-02-26] MEDS ORDERED: Sodium Chloride 0.9% 1,000 ML IV SCH (11:45)
[2018-02-26 11:47] VITALS: BP 148/91
== END 2018-02-26 12:20 ==
LOC: DL.ED 08:14
DX: F10.239 Alcohol dependence with withdrawal, unspecified (principal); F41.0 Panic disorder [episodic paroxysmal anxiety]; E66.9 Obesity, unspecified
CPT/HCPCS: 36415; 80053; 80305; 81001; 82140; 82150; 83690; 83735; 84443; 85025; 96365; 96375; 96376; 99284; G0480; J2060; J2405; J3411; J7030; J7050; J7120; J3490

== ENCOUNTER 2018-08-02 22:51 | Emergency (ER) | payer MEDICAID ==
[2018-08-03] MEDS ORDERED: MVI, Adult with Vitamin K 10 ML, Folic Acid 1 MG, Thiamine 100 MG in Lactated Ringers 1... IV ONE ×4 (00:26)
--- NOTE | 2018-08-03 01:05 | EDM.PDOCBH ---
ED HPI GENERAL MEDICAL PROBLEM - General Chief Complaint: Drug or Alcohol Abuse Stated Complaint: ALCOHOL WITHDRAWLS [id number] Time Seen by Provider: 08/02/18 23:30 Source of Information: Reports: Patient History Limitations: Reports: No Limitations - History of Present Illness INITIAL COMMENTS - FREE TEXT/NARRATIVE: ED with c/o alcohol withdrawal, been drinking recently up to liter of whisky daily, smoked mome marijuana this week, Denied other drug use, feel like withdrawing. Last ETOH 0400. Back Pain Score (Numeric/FACES): 5 - Related Data Allergies Allergy/AdvReac Type Severity Reaction Status Date / Time No Known Allergies Allergy Verified 08/02/18 23:06 Home Meds: Home Meds . [No Known Home Meds] 06/22/18 [History] CIWAA - CIWAA CIWAA Nausea And Vomitin - No Nausea and No Vomiting CIWAA Tremor: 1 - Not Visable, but Can Be [place]uffin Fingertip to Fingertip CIWAA Paroxysmal Sweats: 1 - Barely Perceptible Sweating, Palms Moist CIWAA Anxiety: 0 - No Anxiety, at Ease CIWAA Agitation: 0 - Normal Activity CIWAA Tactile Disturbances: 1 - Very Mild Itching, Pins and [place], Burning or Numbness CIWAA Auditory Disturbances: 0 - Not Present CIWAA Visual Disturbances: 0 - Not Present CIWAA Headache, Fullness in Head: 1 - Very Mild CIWAA Orientation And Clouding Of Sensorium: 0 - Oriented and Can do Serial Additions CIWAA Scale Score: 4 Past Medical History - Past Health History Medical/Surgical History: Denies Medical/Surgical History HEENT History: Reports: Impaired Vision Cardiovascular History: Reports: None Respiratory History: Reports: None Gastrointestinal History: Reports: None Genitourinary History: Reports: None Musculoskeletal History: Reports: Gout Neurological History: Reports: None Psychiatric History: Reports: Addiction, Anxiety, Panic Attack Endocrine/Metabolic History: Reports: Obesity/BMI 30+ Hematologic History: Reports: None Immunologic History: Reports: None Oncologic (Cancer) History: Reports: None Dermatologic History: Reports: Other (See Below) Other Dermatologic History: severe acne - Infectious Disease History Infectious Disease History: Reports: Chicken Pox - Past Surgical History Head Surgeries/Procedures: Reports: None HEENT Surgical History: Reports: Tonsillectomy Cardiovascular Surgical History: Reports: None Respiratory Surgical History: Reports: None GI Surgical History: Reports: None Male Surgical History: Reports: None Endocrine Surgical History: Reports: None Neurological Surgical History: Reports: None Musculoskeletal Surgical History: Reports: None Social & Family History - Family History Family Medical History: Noncontributory - Tobacco Use Smoking Status *Q: Never Smoker - Caffeine Use Caffeine Use: Reports: Coffee, Energy Drinks, Soda, Tea - Alcohol Use Date of Last Drink: 08/02/18 Time of Last Drink: 04:00 - Recreational Drug Use Recreational Drug Use: Yes Drug Use in Last 12 Months: Yes Recreational Drug Type: Reports: Marijuana/Hashish Recreational Drug Use Frequency: Daily Recreational Drug Last Use: t-1 - Living Situation & Occupation Living situation: Reports: Single, with Family Occupation: Unemployed ED ROS GENERAL - Review of Systems Review Of Systems: ROS reveals no pertinent complaints other than HPI. ED EXAM, BEHAVIORAL HEALTH - Physical Exam Exam: See Below Exam Limited By: No Limitations General Appearance: Alert, No Apparent Distress, Obese (morbid) Eye Exam: Bilateral Eye: EOMI, PERRL Ears: Normal External Exam Nose: Normal Inspection Throat/Mouth: Normal Inspection Head: Atraumatic, Normocephalic Neck: Normal Inspection Respiratory/Chest: No Respiratory Distress, Lungs Clear, Normal Breath Sounds Cardiovascular: Normal Peripheral Pulses, Regular Rate, Rhythm, Tachycardia GI/Abdominal: Normal Bowel Sounds, Soft Back Exam: Full Range of Motion Extremities: Normal Range of Motion Neurological: Alert, Other (avodant poor eye contact) Psychiatric: Alert, Flat Affect, Withdrawn. No: Restless, Agitated, Auditory Hallucinations, Visual Hallucinations, Paranoid Thoughts Skin Exam: Warm, Dry, Intact, Diaphoretic (palms moist) COURSE, BEHAVIORAL HEALTH COMP - Course Vital Signs: Last Vital Signs Temp 99 F 08/03/18 01:32 Pulse 101 H 08/03/18 01:32 Resp 19 08/03/18 01:32 BP 144/55 H 08/03/18 01:32 Pulse Ox 96 08/03/18 01:32 Orders, Labs, Meds: Laboratory Tests 08/03/18 08/03/18 Range/Units 00:30 00:30 WBC 9.8 (5.0-10.0) 10^3/uL RBC 5.17 (4.6-6.2) 10^6/uL Hgb 14.9 (14.0-18.0) g/dL Hct 45.1 (40.0-54.0) % MCV 87.2 D (80-100) fL MCH 28.8 (27.0-34.0) pg MCHC 33.0 (33.0-35.0) g/dL Plt Count 307 D (150-450) 10^3/uL Neut % (Auto) 69.7 (42.2-75.2) % Lymph % (Auto) 17.3 L (20.5-50.1) % [place] % (Auto) 10.8 H (2-8) % Eos % (Auto) 1.9 (1.0-3.0) % Baso % (Auto) 0.3 (0.0-1.0) % Sodium 136 (135-145) mmol/L Potassium 3.7 (3.6-5.0) mmol/L Chloride 102 (101-111) mmol/L Carbon Dioxide 22.0 (21.0-31.0) mmol/L Anion Gap 15.7 BUN 5 L (7-18) mg/dL Creatinine 0.7 (0.6-1.3) mg/dL Est Cr Clr Drug Dosing 184.30 mL/min Estimated GFR (MDRD) > 60 BUN/Creatinine Ratio 7.14 Glucose 102 (74-105) mg/dL Calcium 8.5 (8.4-10.2) mg/dl Total Bilirubin 0.7 (0.2-1.0) mg/dL AST 41 (10-42) IU/L ALT 62 H (10-60) IU/L Alkaline Phosphatase 77 (42-121) IU/L Total Protein 7.3 (6.7-8.2) g/dl Albumin 3.4 (3.2-5.5) g/dl Globulin 3.9 Albumin/Globulin Ratio 0.87 Ethyl Alcohol < 5 mg/dL Medications Discontinued Medications Generic Name Dose Route Start Last Admin Trade Name Freq PRN Reason Stop Dose Admin Multivitamins/Minerals 10 ml/ 1,011.2 mls @ 999 mls/hr 08/03/18 00:26 00:47 Folic Acid 1 mg/ Thiamine HCl IV 08/03/18 01:26 999 mls/hr 100 mg/ Lactated Ringer's ONETIME ONE Administration Lorazepam 1 mg 08/03/18 01:20 08/03/18 01:30 Ativan PO 08/03/18 01:21 1 mg ONETIME ONE Administration Departure - Departure Time of Disposition: 01:48 Disposition: Home, Self-Care 01 Condition: Good Clinical Impression: Alcohol abuse - Discharge Information *PRESCRIPTION DRUG MONITORING PROGRAM REVIEWED*: No *COPY OF PRESCRIPTION DRUG MONITORING REPORT IN PATIENT GIOVANNY: No Instructions: Alcohol Use Disorder Forms: ED Department Discharge Additional Instructions: increase fluid intake follow up with primary care follow up with addiction services to evaluate need for inpatient treatment decrease or stop alcohol use
[2018-08-03 01:06] LABS: ANION GAP 15.7; CHLORIDE,CL 102 mmol/L (101-111); SODIUM,NA 136 mmol/L (135-145)
[2018-08-03] MEDS ORDERED: LORazepam 1 MG Tab PO ONE (01:20)
[2018-08-03 01:34] VITALS: BP 144/55
== END 2018-08-03 01:50 | disposition home or self-care (01) ==
LOC: DL.ED 22:51
DX: F10.239 Alcohol dependence with withdrawal, unspecified (principal); Y90.0 Blood alcohol level of less than 20 mg/100 ml
CPT/HCPCS: 36415; 80053; 85025; 96365; 99284-25; A9270-GY; G0480; J3411; J3490; J7120

== ENCOUNTER 2018-09-19 21:54 | Emergency (ER) | payer MEDICAID, OTHER ==
[2018-09-19 22:27] VITALS: BP 151/92
[2018-09-19 23:17] LABS: ANION GAP 16.6; CHLORIDE,CL 106 mmol/L (101-111); SODIUM,NA 141 mmol/L (135-145)
[2018-09-19] MEDS ORDERED: LORazepam 0.5 MG Tab PO ONE (23:24)
--- NOTE | 2018-09-19 23:26 | EDM.PDOCBH ---
ED HPI GENERAL MEDICAL PROBLEM - General Chief Complaint: Drug or Alcohol Abuse Stated Complaint: ALCOHOL WITHDRAWAL [id number] Time Seen by Provider: 09/19/18 22:40 Source of Information: Reports: Patient History Limitations: Reports: No Limitations - History of Present Illness INITIAL COMMENTS - FREE TEXT/NARRATIVE: ED ambulatory with c/o alcohol withdrawal. Starting to have tremors and feeling anxious. Admits one week binge on gallon of vodka and some whiskey daily. Last intake early this am. Admits cannibus. Denies other drug use. Hx withdrawal seizures. No recent ETOH treatment, Right Arm Pain Score (Numeric/FACES): 5 - Related Data Allergies Allergy/AdvReac Type Severity Reaction Status Date / Time No Known Allergies Allergy Verified 08/02/18 23:06 Home Meds: Home Meds . [No Known Home Meds] 06/22/18 [History] CIWAA - CIWAA CIWAA Nausea And Vomitin - No Nausea and No Vomiting CIWAA Tremor: 4 - Moderate, with Patient's Arms Extended CIWAA Paroxysmal Sweats: 1 - Barely Perceptible Sweating, Palms Moist CIWAA Anxiety: 1 - Mildly Anxious CIWAA Agitation: 0 - Normal Activity CIWAA Tactile Disturbances: 0 - None CIWAA Auditory Disturbances: 0 - Not Present CIWAA Visual Disturbances: 0 - Not Present CIWAA Headache, Fullness in Head: 0 - Not Present CIWAA Orientation And Clouding Of Sensorium: 1 - Cannot do Serial Additions or is Uncertain About Date CIWAA Scale Score: 7 Past Medical History - Past Health History Medical/Surgical History: Denies Medical/Surgical History HEENT History: Reports: Impaired Vision Cardiovascular History: Reports: None Respiratory History: Reports: None Gastrointestinal History: Reports: None Genitourinary History: Reports: None Musculoskeletal History: Reports: Gout Neurological History: Reports: None Psychiatric History: Reports: Addiction, Anxiety, Panic Attack Endocrine/Metabolic History: Reports: Obesity/BMI 30+ Hematologic History: Reports: None Immunologic History: Reports: None Oncologic (Cancer) History: Reports: None Dermatologic History: Reports: Other (See Below) Other Dermatologic History: severe acne - Infectious Disease History Infectious Disease History: Reports: Chicken Pox - Past Surgical History Head Surgeries/Procedures: Reports: None HEENT Surgical History: Reports: Tonsillectomy Cardiovascular Surgical History: Reports: None Respiratory Surgical History: Reports: None GI Surgical History: Reports: None Male Surgical History: Reports: None Endocrine Surgical History: Reports: None Neurological Surgical History: Reports: None Musculoskeletal Surgical History: Reports: None Social & Family History - Family History Family Medical History: Noncontributory - Tobacco Use Smoking Status *Q: Never Smoker - Caffeine Use Caffeine Use: Reports: Coffee, Soda, Tea - Alcohol Use Days Per Week of Alcohol Use: 7 Number of Drinks Per Day: 14 Total Drinks Per Week: 98 - Recreational Drug Use Recreational Drug Use: Yes Recreational Drug Type: Reports: Marijuana/Hashish - Living Situation & Occupation Living situation: Reports: Single, with Family Occupation: Unemployed ED ROS GENERAL - Review of Systems Review Of Systems: ROS reveals no pertinent complaints other than HPI. ED EXAM, BEHAVIORAL HEALTH - Physical Exam Exam: See Below Exam Limited By: No Limitations General Appearance: Alert, Anxious (mild), Mild Distress, Obese Eye Exam: Bilateral Eye: EOMI Ears: Normal External Exam Nose: Normal Inspection Throat/Mouth: Normal Inspection Head: Atraumatic, Normocephalic Respiratory/Chest: No Respiratory Distress, Lungs Clear Cardiovascular: Normal Peripheral Pulses, Regular Rate, Rhythm, Tachycardia GI/Abdominal: Normal Bowel Sounds, Soft, Non-Tender Extremities: Normal Inspection Neurological: Alert, Normal Cognition, Oriented x 3, Tremor (heands) Psychiatric: Alert, Normal Cognition, Oriented, Restless. No: Suicidal Thoughts Skin Exam: Warm, Dry, Other (palms moist) COURSE, BEHAVIORAL HEALTH COMP - Course Vital Signs: Last Vital Signs Temp 97.7 F 09/19/18 22:22 Pulse 106 H 09/19/18 22:22 Resp 18 09/19/18 22:22 BP 151/92 H 09/19/18 22:22 Pulse Ox 98 09/19/18 22:22 Orders, Labs, Meds: Laboratory Tests 09/19/18 09/19/18 Range/Units 22:50 22:50 WBC 6.8 (5.0-10.0) 10^3/uL RBC 5.58 (4.6-6.2) 10^6/uL Hgb 16.0 (14.0-18.0) g/dL Hct 48.2 (40.0-54.0) % MCV 86.4 (80-100) fL MCH 28.7 (27.0-34.0) pg MCHC 33.2 (33.0-35.0) g/dL Plt Count 410 D (150-450) 10^3/uL Neut % (Auto) 64.2 (42.2-75.2) % Lymph % (Auto) 24.4 (20.5-50.1) % [place] % (Auto) 7.2 (2-8) % Eos % (Auto) 3.8 H (1.0-3.0) % Baso % (Auto) 0.4 (0.0-1.0) % Sodium 141 (135-145) mmol/L Potassium 3.6 (3.6-5.0) mmol/L Chloride 106 (101-111) mmol/L Carbon Dioxide 22.0 (21.0-31.0) mmol/L Anion Gap 16.6 BUN 8 (7-18) mg/dL Creatinine 0.7 (0.6-1.3) mg/dL Est Cr Clr Drug Dosing 184.30 mL/min Estimated GFR (MDRD) > 60 BUN/Creatinine Ratio 11.42 Glucose 97 (74-105) mg/dL Calcium 8.6 (8.4-10.2) mg/dl Total Bilirubin 0.5 (0.2-1.0) mg/dL AST 21 (10-42) IU/L ALT 47 (10-60) IU/L Alkaline Phosphatase 89 (42-121) IU/L Total Protein 7.9 (6.7-8.2) g/dl Albumin 3.6 (3.2-5.5) g/dl Globulin 4.3 Albumin/Globulin Ratio 0.84 Ethyl Alcohol 154 mg/dL Medications Discontinued Medications Generic Name Dose Route Start Last Admin Trade Name Freq PRN Reason Stop Dose Admin Lorazepam 0.5 mg 09/19/18 23:24 09/19/18 23:35 Ativan PO 09/19/18 23:25 0.5 mg ONETIME ONE Administration Departure - Departure Time of Disposition: 23:25 Disposition: Home, Self-Care 01 Condition: Good Clinical Impression: Alcohol withdrawal syndrome, EtOH dependence - Discharge Information Instructions: Alcohol Use Disorder Forms: ED Department Discharge Additional Instructions: [facility] Abstain from alcohol
== END 2018-09-19 23:40 | disposition home or self-care (01) ==
LOC: DL.ED 21:54
DX: F10.239 Alcohol dependence with withdrawal, unspecified (principal); Y90.6 Blood alcohol level of 120-199 mg/100 ml
CPT/HCPCS: 36415; 80053; 85025; 99284; A9270; G0480

== ENCOUNTER 2018-09-23 22:14 | Emergency (ER) | payer MEDICAID ==
[2018-09-23 22:32] VITALS: BP 161/96
[2018-09-23] MEDS ORDERED: Amoxicillin 500 MG Cap PO ONE (23:16)
--- NOTE | 2018-09-23 23:26 | EDM.PDOC ---
ED HPI GENERAL MEDICAL PROBLEM - General Chief Complaint: General Stated Complaint: TOOTH PAIN Time Seen by Provider: 09/23/18 22:35 Source of Information: Reports: Patient, RN History Limitations: Reports: No Limitations - History of Present Illness INITIAL COMMENTS - FREE TEXT/NARRATIVE: dental pain bottom left rear molar x 2 days. Not contacted dentist, not tried anything for pain Treatments FINANCE ATTORNEY: Reports: NSAIDS Tooth/Teeth Pain Score (Numeric/FACES): 8 - Related Data Allergies Allergy/AdvReac Type Severity Reaction Status Date / Time No Known Allergies Allergy Verified 08/02/18 23:06 Home Meds: Home Meds . [No Known Home Meds] 06/22/18 [History] Past Medical History - Past Health History Medical/Surgical History: Denies Medical/Surgical History HEENT History: Reports: Impaired Vision Cardiovascular History: Reports: None Respiratory History: Reports: None Gastrointestinal History: Reports: None Genitourinary History: Reports: None Musculoskeletal History: Reports: Gout Neurological History: Reports: None Psychiatric History: Reports: Addiction, Anxiety, Panic Attack Endocrine/Metabolic History: Reports: Obesity/BMI 30+ Hematologic History: Reports: None Immunologic History: Reports: None Oncologic (Cancer) History: Reports: None Dermatologic History: Reports: Other (See Below) Other Dermatologic History: severe acne - Infectious Disease History Infectious Disease History: Reports: Chicken Pox - Past Surgical History Head Surgeries/Procedures: Reports: None HEENT Surgical History: Reports: Tonsillectomy Cardiovascular Surgical History: Reports: None Respiratory Surgical History: Reports: None GI Surgical History: Reports: None Male Surgical History: Reports: None Endocrine Surgical History: Reports: None Neurological Surgical History: Reports: None Musculoskeletal Surgical History: Reports: None Social & Family History - Family History Family Medical History: Noncontributory - Tobacco Use Smoking Status *Q: Never Smoker - Caffeine Use Caffeine Use: Reports: Coffee, Soda, Tea - Alcohol Use Date of Last Drink: 09/21/18 - Recreational Drug Use Recreational Drug Use: Yes Recreational Drug Type: Reports: Marijuana/Hashish Recreational Drug Use Frequency: Weekly Recreational Drug Last Use: August last week - Living Situation & Occupation Living situation: Reports: Single, with Family Occupation: Unemployed ED ROS GENERAL - Review of Systems Review Of Systems: ROS reveals no pertinent complaints other than HPI. ED EXAM, GENERAL - Physical Exam Exam: See Below Exam Limited By: No Limitations General Appearance: Alert, Mild Distress, Obese Eye Exam: Bilateral Eye: EOMI Ears: Normal External Exam Nose: Normal Inspection Throat/Mouth: Other (left bottom posterior molar small decay lateral and posterior gum swollen ) Head: Atraumatic, Normocephalic Neck: Lymphadenopathy (L) Respiratory/Chest: No Respiratory Distress, Lungs Clear Extremities: Normal Range of Motion Neurological: Alert, Oriented Course - Vital Signs Last Recorded V/S: Last Vital Signs Temp 99 F 09/23/18 22:25 Pulse 98 09/23/18 22:25 Resp 19 09/23/18 22:25 BP 161/96 H 09/23/18 22:25 Pulse Ox 98 09/23/18 22:25 - Orders/Labs/Meds Meds: Medications Discontinued Medications Generic Name Dose Route Start Last Admin Trade Name Isma PRN Reason Stop Dose Admin Amoxicillin 500 mg 09/23/18 23:16 09/23/18 23:21 Amoxil PO 09/23/18 23:17 500 mg ONETIME ONE Administration Departure - Departure Time of Disposition: 23:13 Disposition: Home, Self-Care 01 Condition: Good Clinical Impression: Pain due to dental caries, Dental abscess - Discharge Information *PRESCRIPTION DRUG MONITORING PROGRAM REVIEWED*: No *COPY OF PRESCRIPTION DRUG MONITORING REPORT IN PATIENT GIOVANNY: No Instructions: Dental Abscess, [id number] Forms: ED Department Discharge Additional Instructions: alternate tylenol 650 and ibuprofen 600mg every 4 hours as needed for discomfort follow up with dentist on tuesday amoxicillin 500mg one three times daily for one week good oral care chew opposite side , room temperature food as liquids
== END 2018-09-23 23:24 | disposition home or self-care (01) ==
LOC: DL.ED 22:14
DX: K04.7 Periapical abscess without sinus (principal); K02.9 Dental caries, unspecified
CPT/HCPCS: 99282; A9270

== ENCOUNTER 2019-07-06 23:29 | Emergency (ER) | payer SELFPAY ==
[2019-07-06] MEDS ORDERED: Albuterol 6.7 GM Inhaler INH ONE ×2 (23:30→23:59)
[2019-07-06] MEDS ORDERED: Benzonatate 100 MG Cap PO ONE (23:30)
[2019-07-06 23:43] VITALS: BP 149/76; PULSE 90
--- NOTE | 2019-07-06 23:51 | EDM.PDOC ---
ED HPI GENERAL MEDICAL PROBLEM - General Chief Complaint: Fever Stated Complaint: FLU SYMPTOMS Time Seen by Provider: 07/06/19 23:40 Source of Information: Reports: Patient, RN Notes Reviewed History Limitations: Reports: No Limitations - History of Present Illness INITIAL COMMENTS - FREE TEXT/NARRATIVE: C/O fever cough and body aches with sore throoooat since yesterday. No vomiting. Decreased appetite, still taking liquids. Tyelnol last at 4pm. No known exposure to "flu", brother started with similar sx day prior. - Related Data Allergies Allergy/AdvReac Type Severity Reaction Status Date / Time No Known Allergies Allergy Verified 07/06/19 23:36 Home Meds: Home Meds . [No Known Home Meds] 06/22/18 [History] Past Medical History - Past Health History Medical/Surgical History: Denies Medical/Surgical History HEENT History: Reports: Impaired Vision Cardiovascular History: Reports: None Respiratory History: Reports: None Gastrointestinal History: Reports: None Genitourinary History: Reports: None Musculoskeletal History: Reports: Gout Neurological History: Reports: None Psychiatric History: Reports: Addiction, Anxiety, Panic Attack Endocrine/Metabolic History: Reports: Obesity/BMI 30+ Hematologic History: Reports: None Immunologic History: Reports: None Oncologic (Cancer) History: Reports: None Dermatologic History: Reports: Other (See Below) Other Dermatologic History: severe acne - Infectious Disease History Infectious Disease History: Reports: Chicken Pox - Past Surgical History Head Surgeries/Procedures: Reports: None HEENT Surgical History: Reports: Tonsillectomy Cardiovascular Surgical History: Reports: None Respiratory Surgical History: Reports: None GI Surgical History: Reports: None Male Surgical History: Reports: None Endocrine Surgical History: Reports: None Neurological Surgical History: Reports: None Musculoskeletal Surgical History: Reports: None Social & Family History - Family History Family Medical History: Noncontributory - Tobacco Use Smoking Status *Q: Never Smoker Second Hand Smoke Exposure: No - Caffeine Use Caffeine Use: Reports: Coffee, Tea - Recreational Drug Use Recreational Drug Use: Yes Recreational Drug Type: Reports: Marijuana/Hashish, Methamphetamine - Living Situation & Occupation Living situation: Reports: Single, with Family Occupation: Unemployed ED ROS ENT - Review of Systems Review Of Systems: Comprehensive ROS is negative, except as noted in HPI. ED EXAM, ENT - Physical Exam Exam: See Below Exam Limited By: No Limitations General Appearance: Alert, Mild Distress, Obese Eye Exam: Bilateral Eye: EOMI, PERRL Ears: Normal External Exam, Normal TMs Nose: Normal Inspection Mouth/Throat: Pharyngeal Erythema. No: Tonsillar Exudates Head: Atraumatic, Normocephalic Neck: Normal Inspection Respiratory/Chest: No Respiratory Distress, Lungs Clear, Normal Breath Sounds Cardiovascular: Normal Peripheral Pulses, Regular Rate, Rhythm GI/Abdominal: Normal Bowel Sounds, Soft Extremities: Normal Inspection, Normal Range of Motion Neurological: Alert, Oriented Psychiatric: Normal Affect Skin: Warm, Dry, Intact, Normal Color Course - Vital Signs Last Recorded V/S: Last Vital Signs Temp 97.1 F 07/06/19 23:37 Pulse 90 07/06/19 23:37 Resp 16 07/06/19 23:37 BP 149/76 H 07/06/19 23:37 Pulse Ox 97 07/06/19 23:37 - Orders/Labs/Meds Orders: Active Orders 24 hr Category Date Time Status CULTURE STREP A CONFIRMATION [RM] Stat Lab 07/06/19 23:38 Results STREP SCRN A RAPID W CULT CONF [RM] Stat Lab 07/06/19 23:38 Results Meds: Medications Discontinued Medications Generic Name Dose Route Start Last Admin Trade Name Isma PRN Reason Stop Dose Admin Albuterol Confirm 07/06/19 23:59 Proventil Hfa Administered 07/07/19 00:00 Dose 6.7 gm INH .STK-MED ONE Benzonatate Confirm 07/06/19 23:59 Tessalon Perles Administered 07/07/19 00:00 Dose 200 mg .ROUTE .STK-MED ONE Departure - Departure Time of Disposition: 00:09 Disposition: Home, Self-Care 01 Condition: Good Clinical Impression: URI (upper respiratory infection) Qualifiers: URI type: unspecified viral URI Qualified Code(s): J06.9 - Acute upper respiratory infection, unspecified - Discharge Information *PRESCRIPTION DRUG MONITORING PROGRAM REVIEWED*: No *COPY OF PRESCRIPTION DRUG MONITORING REPORT IN PATIENT GIOVANNY: No Instructions: Upper Respiratory Infection, Adult, [id number], Cough, Adult, [id number] Forms: ED Department Discharge Additional Instructions: tesselon perles 200mg one every 8 hours as needed for cough muccinex or robitussin to loosen secretions per package instructions albuterol inhaler 2 puffs every 4 hours as needed increase fluid intake follow up if symptoms worsen alterante tylenol 650mg and ibuprofen 600mg every 4 hours as needed for cough Sepsis Event Note - Evaluation Sepsis Screening Result: No Definite Risk - Focused Exam Vital Signs: Vital Signs Temp Pulse Resp BP Pulse Ox 07/06/19 23:37 97.1 F 90 16 149/76 H 97 Date Exam was Performed: 07/07/19 Time Exam was Performed: 00:08 - My Orders Last 24 Hours: My Active Orders 07/06/19 23:38 CULTURE STREP A CONFIRMATION [RM] Stat STREP SCRN A RAPID W CULT CONF [] Stat - Assessment/Plan Last 24 Hours: My Active Orders 07/06/19 23:38 CULTURE STREP A CONFIRMATION [RM] Stat STREP SCRN A RAPID W CULT CONF [] Stat
[2019-07-06] MEDS ORDERED: Benzonatate 100 MG Cap ONE (23:59)
== END 2019-07-07 00:15 | disposition home or self-care (01) ==
LOC: DL.ED 23:29
DX: J06.9 Acute upper respiratory infection, unspecified (principal); E66.9 Obesity, unspecified; Z68.43 Body mass index [BMI] 50.0-59.9, adult
CPT/HCPCS: 87081; 87430; 87804; 99283

== ENCOUNTER 2019-10-24 17:00 | Observation (INO) | payer MEDICAID ==
[2019-10-24] MEDS ORDERED: Sodium Chloride 0.9% 10 ML Syringe FLUSH PRN (17:22)
[2019-10-24] MEDS ORDERED: Ondansetron 4 MG/2 ML SDV IV ONE (17:23)
[2019-10-24] MEDS ORDERED: MVI, Adult with Vitamin K 10 ML, Thiamine 100 MG, Folic Acid 1 MG in Lactated Ringers 1... IV ONE ×4 (17:23)
[2019-10-24] MEDS ORDERED: LORazepam 2 MG/ML SDV IVPUSH ONE (17:23)
[2019-10-24 18:09] LABS: ANION GAP 17.5 mEq/L (7-13); CHLORIDE,CL 102 mmol/L (98-107); SODIUM,NA 140 mmol/L (136-145)
[2019-10-24 18:25] LABS: PTT,PARTIAL THROMBOPLSTIN TIME 26.5 SEC (22.0-34.0)
--- NOTE | 2019-10-24 18:27 | EDM.PDOCBH ---
Scribed by Shayy Price 10/24/19 1722 for Robby Orozco MD ED HPI GENERAL MEDICAL PROBLEM - General Chief Complaint: Behavioral/Psych Stated Complaint: NEEDS HELP Time Seen by Provider: 10/24/19 17:15 Source of Information: Reports: Patient, RN, RN Notes Reviewed History Limitations: Reports: No Limitations - History of Present Illness INITIAL COMMENTS - FREE TEXT/NARRATIVE: Pt states has been drinking constantly since Tuesday, about 1 case of beer and 1L whiskey daily. His last drink was 0700HRS today, states began to feel tremors and possible onset of DT so came here. Mild tremor noted. Pt admits to anxiety and addiction history, has been sober 8 months. No hallucinations, tingling, only body aches. Pt willing to reenter treatment. Duration: Chronic, Recurring Location: Reports: Generalized Severity: Moderate generalized Pain Score (Numeric/FACES): 3 - Related Data Allergies Allergy/AdvReac Type Severity Reaction Status Date / Time No Known Allergies Allergy Verified 10/24/19 17:20 Home Meds: Home Meds . [No Known Home Meds] 06/22/18 [History] Past Medical History - Past Health History Medical/Surgical History: Denies Medical/Surgical History HEENT History: Reports: Impaired Vision Cardiovascular History: Reports: None Respiratory History: Reports: None Gastrointestinal History: Reports: None Genitourinary History: Reports: None Musculoskeletal History: Reports: Gout Neurological History: Reports: None Psychiatric History: Reports: Addiction, Anxiety, Panic Attack Endocrine/Metabolic History: Reports: Obesity/BMI 30+ Hematologic History: Reports: None Immunologic History: Reports: None Oncologic (Cancer) History: Reports: None Dermatologic History: Reports: Other (See Below) Other Dermatologic History: severe acne - Infectious Disease History Infectious Disease History: Reports: Chicken Pox - Past Surgical History Head Surgeries/Procedures: Reports: None HEENT Surgical History: Reports: Tonsillectomy Cardiovascular Surgical History: Reports: None Respiratory Surgical History: Reports: None GI Surgical History: Reports: None Male Surgical History: Reports: None Endocrine Surgical History: Reports: None Neurological Surgical History: Reports: None Musculoskeletal Surgical History: Reports: None Social & Family History - Family History Family Medical History: Noncontributory - Caffeine Use Caffeine Use: Reports: Coffee, Tea - Living Situation & Occupation Living situation: Reports: Single, with Family Occupation: Unemployed ED ROS GENERAL - Review of Systems Review Of Systems: Comprehensive ROS is negative, except as noted in HPI. ED EXAM, BEHAVIORAL HEALTH - Physical Exam Exam: See Below Exam Limited By: No Limitations General Appearance: Alert, WD/WN, No Apparent Distress Eye Exam: Bilateral Eye: EOMI, Normal Inspection, PERRL Ears: Normal External Exam, Normal Canal, Hearing Grossly Normal, Normal TMs Nose: Normal Inspection, Normal Mucosa, No Blood Throat/Mouth: Normal Inspection, Normal Lips, Normal Teeth, Normal Gums, Normal Oropharynx, Normal Voice, No Airway Compromise Head: Atraumatic, Normocephalic Neck: Normal Inspection, Supple, Non-Tender, Full Range of Motion Respiratory/Chest: No Respiratory Distress, Lungs Clear, Normal Breath Sounds, No Accessory Muscle Use, Chest Non-Tender Cardiovascular: Normal Peripheral Pulses, Regular Rate, Rhythm, No Edema, No Gallop, No JVD, No Murmur, No Rub GI/Abdominal: Normal Bowel Sounds, Soft, Non-Tender, No Organomegaly, No Distention, No Abnormal Bruit, No Mass (Male) Exam: Deferred Rectal (Males) Exam: Deferred Back Exam: Normal Inspection, Full Range of Motion, NT Extremities: Normal Inspection, Normal Range of Motion, Non-Tender, Normal Capillary Refill, No Pedal Edema Neurological: Alert, Normal Mood/Affect, CN II-XII Intact, Normal Cognition, Normal Gait, No Motor/Sensory Deficits, Oriented x 3, Tremor (mild of hands) Psychiatric: Alert, Depressed Mood, Flat Affect, Tearful Skin Exam: Warm, Dry, Intact, Normal color, No rash COURSE, BEHAVIORAL HEALTH COMP - Course Vital Signs: Last Vital Signs Temp 98.8 F 10/24/19 17:16 Pulse 102 H 10/24/19 17:16 Resp 20 10/24/19 17:16 BP 159/89 H 10/24/19 17:16 Pulse Ox 97 10/24/19 17:16 Orders, Labs, Meds: Active Orders 24 hr Category Date Time Status Peripheral IV Care [RC] . DIRECTED Care 10/24/19 17:23 Active DRUG SCREEN URINE BIORAD [URCHEM] Stat Lab 10/24/19 18:13 Ordered INR,PT,PROTHROMBIN TIME [COAG] Stat Lab 10/24/19 17:44 Received PTT,PARTIAL THROMBOPLSTIN TIME [COAG] Stat Lab 10/24/19 17:44 Received UA RFX ASHLEY AND CULT IF INDIC [URIN] Stat Lab 10/24/19 18:13 Ordered Sodium Chloride 0.9% [Saline Flush] Med 10/24/19 17:22 Active 10 ml FLUSH ASDIRECTED PRN Peripheral IV Insertion Adult [OM.PC] Stat Oth 10/24/19 17:23 Ordered Medication Orders Sodium Chloride (Saline Flush) 10 ml FLUSH ASDIRECTED PRN PRN Reason: Keep Vein Open Last Admin: 10/24/19 18:03 Dose: 10 ml Laboratory Tests 10/24/19 10/24/19 Range/Units 17:44 17:44 WBC 7.4 (5.0-10.0) 10^3/uL RBC 5.62 (4.6-6.2) 10^6/uL Hgb 15.8 (14.0-18.0) g/dL Hct 47.0 (40.0-54.0) % MCV 83.6 (80-100) fL MCH 28.1 (27.0-34.0) pg MCHC 33.6 (33.0-35.0) g/dL Plt Count 332 (150-450) 10^3/uL Neut % (Auto) 72.4 (42.2-75.2) % Lymph % (Auto) 17.0 L (20.5-50.1) % Clinch % (Auto) 9.1 H (2-8) % Eos % (Auto) 1.1 (1.0-3.0) % Baso % (Auto) 0.4 (0.0-1.0) % Sodium 140 (136-145) mmol/L Potassium 3.5 (3.5-5.1) mmol/L Chloride 102 (98-107) mmol/L Carbon Dioxide 24 (21-32) mmol/L Anion Gap 17.5 H (7-13) mEq/L BUN 5 L (7-18) mg/dL Creatinine 0.82 (0.70-1.30) mg/dL Est Cr Clr Drug Dosing 155.93 mL/min Estimated GFR (MDRD) > 60 BUN/Creatinine Ratio 6.1 (No establ ref range) Glucose 109 H (74-99) mg/dL Calcium 8.4 L (8.5-10.1) mg/dL Total Bilirubin 0.4 (0.2-1.0) mg/dL AST 20 (15-37) U/L ALT 58 (16-63) U/L Alkaline Phosphatase 94 (46-116) U/L Total Protein 8.0 (6.4-8.2) g/dL Albumin 3.5 (3.4-5.0) g/dL Globulin 4.5 Albumin/Globulin Ratio 0.8 Lipase 126 (73-393) U/L Ethyl Alcohol 125 (0) mg/dL Medications Generic Name Dose Route Start Last Admin Trade Name Freq PRN Reason Stop Dose Admin Sodium Chloride 10 ml 10/24/19 17:22 10/24/19 18:03 Saline Flush FLUSH 10 ml ASDIRECTED PRN Administration Keep Vein Open Discontinued Medications Generic Name Dose Route Start Last Admin Trade Name Freq PRN Reason Stop Dose Admin Multivitamins/Minerals 10 ml/ 1,011.2 mls @ 999 mls/hr 10/24/19 17:23 18:08 Thiamine HCl 100 mg/ Folic IV 10/24/19 18:23 999 mls/hr Acid 1 mg/ Lactated Ringer's .BOLUS ONE Administration Lorazepam 2 mg 10/24/19 17:23 10/24/19 18:05 Ativan IVPUSH 10/24/19 17:24 2 mg ONETIME ONE Administration Ondansetron HCl 4 mg 10/24/19 17:23 10/24/19 18:02 Zofran IV 10/24/19 17:24 4 mg ONETIME ONE Administration Medical Clearance: 10/24/19 18:25 Pt is medically cleared for admission to observation for alcohol withdrawals. Departure - Departure Time of Disposition: 18:25 (admit ) Disposition: Refer to Observation Condition: Fair Clinical Impression: Alcohol abuse Alcohol withdrawal syndrome Qualifiers: Complication of substance-induced condition: uncomplicated Qualified Code(s): F10.230 - Alcohol dependence with withdrawal, uncomplicated - Discharge Information *PRESCRIPTION DRUG MONITORING PROGRAM REVIEWED*: Not Applicable *COPY OF PRESCRIPTION DRUG MONITORING REPORT IN PATIENT GIOVANNY: Not Applicable Forms: ED Department Discharge Sepsis Event Note - Focused Exam Vital Signs: Vital Signs Temp Pulse Resp BP Pulse Ox 10/24/19 17:16 98.8 F 102 H 20 159/89 H 97 Date Exam was Performed: 10/24/19 Time Exam was Performed: 18:28 - My Orders Last 24 Hours: My Active Orders 10/24/19 17:22 Sodium Chloride 0.9% [Saline Flush] 10 ml FLUSH ASDIRECTED PRN 10/24/19 17:23 Peripheral IV Care [RC] . DIRECTED Peripheral IV Insertion Adult [OM.PC] Stat 10/24/19 17:44 INR,PT,PROTHROMBIN TIME [COAG] Stat PTT,PARTIAL THROMBOPLSTIN TIME [COAG] Stat 10/24/19 18:13 DRUG SCREEN URINE BIORAD [URCHEM] Stat UA RFX ASHLEY AND CULT IF INDIC [URIN] Stat - Assessment/Plan Last 24 Hours: My Active Orders 10/24/19 17:22 Sodium Chloride 0.9% [Saline Flush] 10 ml FLUSH ASDIRECTED PRN 10/24/19 17:23 Peripheral IV Care [RC] . DIRECTED Peripheral IV Insertion Adult [OM.PC] Stat 10/24/19 17:44 INR,PT,PROTHROMBIN TIME [COAG] Stat PTT,PARTIAL THROMBOPLSTIN TIME [COAG] Stat 10/24/19 18:13 DRUG SCREEN URINE BIORAD [URCHEM] Stat UA RFX ASHLEY AND CULT IF INDIC [URIN] Stat I have read and agree with the documentation that has been completed regarding this visit. By signing this record, I attest that the documentation was completed in my physical presence and is an accurate record of the encounter.
[2019-10-24] MEDS ORDERED: LORazepam 1 MG Tab PO PRN (19:05)
[2019-10-24] MEDS ORDERED: LORazepam 2 MG/ML SDV IVPUSH PRN (19:06)
[2019-10-24] MEDS ORDERED: Temazepam 15 MG Cap PO PRN (19:14)
[2019-10-24] MEDS ORDERED: Ondansetron 4 MG Tab.DIS PO PRN (19:14)
[2019-10-24] MEDS ORDERED: Acetaminophen 325 MG Tab PO PRN (19:14)
--- NOTE | 2019-10-24 19:14 | PCM.HP ---
H&P History of Present Illness - General Date of Service: 10/24/19 Admit Problem/Dx: Admission Diagnosis/Problem Admission Diagnosis/Problem Alcohol withdrawal syndrome Source of Information: Patient, Provider - History of Present Illness Initial Comments - Free Text/Narative: The patient has a history of alcohol abuse and addiction. Was in treatment and then was sober for about 8 months. Restarted drinking less at the day. Has been drinking a case of beer and the bottle of whiskey daily. Last drink was around 7 in the morning on the day of admission. He wanted to stop drinking but has been starting to feel mild tremors and came into the emergency room. No asssociated hallucination, no suicidal attempt. No chest pain, no shortness of breath. generalized Pain Score (Numeric/FACES): 3 - Related Data Allergies/Adverse Reactions: Allergies Allergy/AdvReac Type Severity Reaction Status Date / Time No Known Allergies Allergy Verified 10/24/19 17:20 Home Medications: Home Meds . [No Known Home Meds] 06/22/18 [History] Past Medical History - Past Health History Medical/Surgical History: Denies Medical/Surgical History HEENT History: Reports: Impaired Vision Cardiovascular History: Reports: None Respiratory History: Reports: None Gastrointestinal History: Reports: None Genitourinary History: Reports: None Musculoskeletal History: Reports: Gout Neurological History: Reports: None Psychiatric History: Reports: Addiction, Anxiety, Panic Attack Endocrine/Metabolic History: Reports: Obesity/BMI 30+ Hematologic History: Reports: None Immunologic History: Reports: None Oncologic (Cancer) History: Reports: None Dermatologic History: Reports: Other (See Below) Other Dermatologic History: severe acne - Infectious Disease History Infectious Disease History: Reports: Chicken Pox - Past Surgical History Head Surgeries/Procedures: Reports: None HEENT Surgical History: Reports: Tonsillectomy Cardiovascular Surgical History: Reports: None Respiratory Surgical History: Reports: None GI Surgical History: Reports: None Male Surgical History: Reports: None Endocrine Surgical History: Reports: None Neurological Surgical History: Reports: None Musculoskeletal Surgical History: Reports: None Social & Family History - Family History Family Medical History: Noncontributory - Tobacco Use Smoking Status *Q: Never Smoker Second Hand Smoke Exposure: Yes - Caffeine Use Caffeine Use: Reports: Coffee, Tea - Recreational Drug Use Recreational Drug Use: Yes Recreational Drug Type: Reports: Marijuana/Hashish, Methamphetamine, Morphine, Oxycodone, Vicodin, Other (see below) Other Recreational Drug Type: cyclobenzaprine Recreational Drug Use Frequency: Not Used In Over 6 Months - Living Situation & Occupation Living situation: Reports: Single, with Family Occupation: Unemployed H&P Review of Systems - Review of Systems: Review Of Systems: See Below General: Denies: Fever, Chills Pulmonary: Denies: Shortness of Breath Cardiovascular: Denies: Chest Pain, Edema Gastrointestinal: Reports: Nausea. Denies: Abdominal Pain Genitourinary: Denies: Dysuria Psychiatric: Reports: Anxiety Neurological: Reports: Tremors. Denies: Confusion Exam - Exam Exam: See Below - Vital Signs Vital Signs: Last Vital Signs Temp 98.8 F 10/24/19 17:16 Pulse 102 H 10/24/19 17:16 Resp 20 10/24/19 17:16 BP 159/89 H 10/24/19 17:16 Pulse Ox 97 10/24/19 17:16 Weight: 406 lb 6.4 oz - Exam General: Alert, Oriented Neck: Supple Lungs: Clear to Auscultation, Normal Respiratory Effort Cardiovascular: Regular Rate, Regular Rhythm GI/Abdominal Exam: Normal Bowel Sounds, Soft, Non-Tender Skin: Warm, Dry Neurological: Normal Speech, Normal Tone, Other (No significant tremor) Neuro Extensive - Mental Status: Alert, Oriented x3, Normal Mood/Affect Psychiatric: Alert, Normal Affect, Normal Mood - Patient Data Lab Results Last 24 hrs: Laboratory Results - last 24 hr 10/24/19 10/24/19 10/24/19 Range/Units 17:44 17:44 17:44 WBC 7.4 (5.0-10.0) 10^3/uL RBC 5.62 (4.6-6.2) 10^6/uL Hgb 15.8 (14.0-18.0) g/dL Hct 47.0 (40.0-54.0) % MCV 83.6 (80-100) fL MCH 28.1 (27.0-34.0) pg MCHC 33.6 (33.0-35.0) g/dL Plt Count 332 (150-450) 10^3/uL Neut % (Auto) 72.4 (42.2-75.2) % Lymph % (Auto) 17.0 L (20.5-50.1) % [place] % (Auto) 9.1 H (2-8) % Eos % (Auto) 1.1 (1.0-3.0) % Baso % (Auto) 0.4 (0.0-1.0) % PT 10.2 (9.0-12.0) SEC INR 1.1 (0.9-1.2) APTT 26.5 (22.0-34.0) SEC Sodium 140 (136-145) mmol/L Potassium 3.5 (3.5-5.1) mmol/L Chloride 102 (98-107) mmol/L Carbon Dioxide 24 (21-32) mmol/L Anion Gap 17.5 H (7-13) mEq/L BUN 5 L (7-18) mg/dL Creatinine 0.82 (0.70-1.30) mg/dL Est Cr Clr Drug Dosing 155.93 mL/min Estimated GFR (MDRD) > 60 BUN/Creatinine Ratio 6.1 (No establ ref range) Glucose 109 H (74-99) mg/dL Calcium 8.4 L (8.5-10.1) mg/dL Total Bilirubin 0.4 (0.2-1.0) mg/dL AST 20 (15-37) U/L ALT 58 (16-63) U/L Alkaline Phosphatase 94 (46-116) U/L Total Protein 8.0 (6.4-8.2) g/dL Albumin 3.5 (3.4-5.0) g/dL Globulin 4.5 Albumin/Globulin Ratio 0.8 Lipase 126 (73-393) U/L Urine Color (YELLOW) Urine Appearance (CLEAR) Urine pH (5.0-9.0) Ur Specific [place] (1.005-1.030) Urine Protein (NEGATIVE) Urine Glucose (UA) (NEGATIVE) Urine Ketones (NEGATIVE) Urine Occult Blood (NEGATIVE) Urine Nitrite (NEGATIVE) Urine Bilirubin (NEGATIVE) Urine Urobilinogen (0.2-1.0) mg/dL Ur Leukocyte Esterase (NEGATIVE) Urine Opiates Screen (NEGATIVE) Ur Oxycodone Screen (NEGATIVE) Urine Methadone Screen (NEGATIVE) Ur Barbiturates Screen (NEGATIVE) U Tricyclic Antidepress (NEGATIVE) Ur Phencyclidine Scrn (NEGATIVE) Ur Amphetamine Screen (NEGATIVE) U Methamphetamines Scrn (NEGATIVE) Urine MDMA Screen (NEGATIVE) U Benzodiazepines Scrn (NEGATIVE) Urine Cocaine Screen (NEGATIVE) U Marijuana (THC) Screen (NEGATIVE) Ethyl Alcohol 125 (0) mg/dL 10/24/19 10/24/19 Range/Units 18:13 18:13 WBC (5.0-10.0) 10^3/uL RBC (4.6-6.2) 10^6/uL Hgb (14.0-18.0) g/dL Hct (40.0-54.0) % MCV (80-100) fL MCH (27.0-34.0) pg MCHC (33.0-35.0) g/dL Plt Count (150-450) 10^3/uL Neut % (Auto) (42.2-75.2) % Lymph % (Auto) (20.5-50.1) % [place] % (Auto) (2-8) % Eos % (Auto) (1.0-3.0) % Baso % (Auto) (0.0-1.0) % PT (9.0-12.0) SEC INR (0.9-1.2) APTT (22.0-34.0) SEC Sodium (136-145) mmol/L Potassium (3.5-5.1) mmol/L Chloride (98-107) mmol/L Carbon Dioxide (21-32) mmol/L Anion Gap (7-13) mEq/L BUN (7-18) mg/dL Creatinine (0.70-1.30) mg/dL Est Cr Clr Drug Dosing mL/min Estimated GFR (MDRD) BUN/Creatinine Ratio (No establ ref range) Glucose (74-99) mg/dL Calcium (8.5-10.1) mg/dL Total Bilirubin (0.2-1.0) mg/dL AST (15-37) U/L ALT (16-63) U/L Alkaline Phosphatase (46-116) U/L Total Protein (6.4-8.2) g/dL Albumin (3.4-5.0) g/dL Globulin Albumin/Globulin Ratio Lipase (73-393) U/L Urine Color Yellow (YELLOW) Urine Appearance Clear (CLEAR) Urine pH 6.0 (5.0-9.0) Ur Specific [place] 1.015 (1.005-1.030) Urine Protein Negative (NEGATIVE) Urine Glucose (UA) Negative (NEGATIVE) Urine Ketones Negative (NEGATIVE) Urine Occult Blood Negative (NEGATIVE) Urine Nitrite Negative (NEGATIVE) Urine Bilirubin Negative (NEGATIVE) Urine Urobilinogen 0.2 (0.2-1.0) mg/dL Ur Leukocyte Esterase Negative (NEGATIVE) Urine Opiates Screen Negative (NEGATIVE) Ur Oxycodone Screen Negative (NEGATIVE) Urine Methadone Screen Negative (NEGATIVE) Ur Barbiturates Screen Negative (NEGATIVE) U Tricyclic Antidepress Negative (NEGATIVE) Ur Phencyclidine Scrn Negative (NEGATIVE) Ur Amphetamine Screen Negative (NEGATIVE) U Methamphetamines Scrn Negative (NEGATIVE) Urine MDMA Screen Negative (NEGATIVE) U Benzodiazepines Scrn Negative (NEGATIVE) Urine Cocaine Screen Negative (NEGATIVE) U Marijuana (THC) Screen Positive H (NEGATIVE) Ethyl Alcohol (0) mg/dL Result Diagrams: 10/24/19 17:44 10/24/19 17:44 - Problem List (1) Alcohol abuse SNOMED Code(s): 81964365 ICD Code: F10.10 - ALCOHOL ABUSE, UNCOMPLICATED Status: Acute Current Visit: No (2) EtOH dependence SNOMED Code(s): 43188230 ICD Code: F10.20 - ALCOHOL DEPENDENCE, UNCOMPLICATED Status: Acute Current Visit: No Qualifiers: Substance use status: alcohol-induced anxiety disorder Qualified Code(s): 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 DIRECTED Care 10/24/19 17:23 Active Folic Acid Med 10/25/19 09:00 Ordered 1 mg PO DAILY LORazepam [Ativan] Med 10/24/19 19:06 Ordered See Protocol IVPUSH Q1H PRN LORazepam [Ativan] Med 10/24/19 19:05 Ordered See Protocol PO Q1H PRN Multivitamins/Minerals [Vitamins and Minerals] Med 10/25/19 08:00 Ordered 1 tab PO WITHBREAKFAST NS + KCl 20mEq/L [Normal Saline with 20 mEq KCl] 1,000 Med 10/24/19 19:15 Ordered ml IV ASDIRECTED Thiamine [Vitamin B-1] Med 10/25/19 09:00 Ordered 100 mg PO DAILY Peripheral IV Insertion Adult [OM.PC] Stat Oth 10/24/19 17:23 Ordered Medication Orders Folic Acid (Folic Acid) 1 mg PO DAILY RUDDY Potassium Chloride/Sodium Chloride (Normal Saline With 20 Meq Kcl) 1,000 mls @ 150 mls/hr IV ASDIRECTED RUDDY Lorazepam (Ativan) 0 mg PO Q1H PRN; Protocol PRN Reason: Withdrawal Symptoms Lorazepam (Ativan) 0 mg IVPUSH Q1H PRN; Protocol PRN Reason: Withdrawal Symptoms Multivitamins/Minerals (Vitamins And Minerals) 1 tab PO WITHBREAKFAST RUDDY Thiamine HCl (Vitamin B-1) 100 mg PO DAILY [facility] Assessment/Plan Comment:: 1. Acute Alcohol intoxication. We will give the patient IV fluids with IV electrolyte replacement. Follow electrolytes. 2. Chronic Alcohol addiction. Consult Social Work and evaluate for alcohol treatment programs. 3. Chronic alcohol use. Supplement thiamine, folate and multivitamin. 4. High Risk for alcohol withdrawal. Frequent evaluations and titration of Ativan per the CIWA protocol 5. Nausea treat symptomatically 6. Deep venous thrombosis (DVT) prophylaxis will be with subcutaneous heparin.
[2019-10-24] MEDS: NS + KCl 20mEq/L 1,000 ML IV SCH (19:53)
[2019-10-24] MEDS: Heparin Sodium 5,000 Units/ML Vial SUBCUT SCH (22:08)
[2019-10-25] MEDS: NS + KCl 20mEq/L 1,000 ML IV SCH (02:38)
[2019-10-25] MEDS: Heparin Sodium 5,000 Units/ML Vial SUBCUT SCH ×2 (06:23→14:12)
[2019-10-25 06:54] LABS: ANION GAP 12.3 mEq/L (7-13); CHLORIDE,CL 106 mmol/L (98-107); SODIUM,NA 142 mmol/L (136-145)
[2019-10-25] MEDS ORDERED: Multivitamins, Therapeutic with Minerals Tab PO SCH (08:00)
[2019-10-25] MEDS ORDERED: Folic Acid 1 MG Tab PO SCH (09:00)
[2019-10-25] MEDS ORDERED: Thiamine 100 MG Tab PO SCH (09:00)
--- NOTE | 2019-10-25 10:39 | PCM.DCSUM1 ---
Discharge Summary - Hospital Course Free Text/Narrative:: 1. Acute Alcohol intoxication. treated the patient IV fluids with IV electrolyte replacement. 2. Chronic Alcohol addiction. Consulted [facility] evaluate for alcohol treatment programs. 3. Chronic alcohol use. Supplement multivitamin. 4. had mild alcohol withdrawal symptoms of anxiety resolved return to er if further symptoms develop - Discharge Data Discharge Date: 10/25/19 Discharge Disposition: Home, Self-Care 01 Condition: Fair - Referral to Home Health Primary Care Physician: PCP Unobtainable - Discharge Diagnosis/Problem(s) (1) Alcohol abuse SNOMED Code(s): 91476175 ICD Code: F10.10 - ALCOHOL ABUSE, UNCOMPLICATED Status: Acute Current Visit: No (2) EtOH dependence SNOMED Code(s): 72370964 ICD Code: F10.20 - ALCOHOL DEPENDENCE, UNCOMPLICATED Status: Acute Current Visit: No Qualifiers: Substance use status: alcohol-induced anxiety disorder Qualified Code(s): 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 - Patient Instructions Diet: Heart Healthy Diet Activity: As Tolerated - Discharge Plan *PRESCRIPTION DRUG MONITORING PROGRAM REVIEWED*: Not Applicable *COPY OF PRESCRIPTION DRUG MONITORING REPORT IN PATIENT GIOVANNY: Not Applicable Prescriptions/Med Rec: Multivitamins/Minerals [Vitamins and Minerals] 1 tab PO WITHBREAKFAST #30 tablet Home Medications: Home Meds Multivitamins/Minerals [Vitamins and Minerals] 1 tab PO WITHBREAKFAST #30 tablet 10/25/19 [Rx] Patient Handouts: Alcohol Abuse and Dependence Information, Adult, Alcohol Intoxication, [id number] Referrals: PCP,Unobtain [Primary Care Provider] - - Discharge Summary/Plan Comment DC Time >30 min.: No - General Info Date of Service: 10/25/19 - Review of Systems General: Denies: Fever Pulmonary: Denies: Shortness of Breath Cardiovascular: Denies: Chest Pain Neurological: Denies: Confusion, Headache, Paresthesia, Tingling, Tremors, Weakness Psychiatric: Denies: Confusion - Patient Data Vitals - Most Recent: Last Vital Signs Temp 98.5 F 10/25/19 00:00 Pulse 89 10/25/19 00:00 Resp 18 10/25/19 00:00 BP 148/79 H 10/25/19 00:00 Pulse Ox 95 10/25/19 00:00 Weight - Most Recent: 406 lb 6.4 oz I&O - Last 24 hours: Intake & Output 10/24/19 10/25/19 10/25/19 22:59 06:59 14:59 Intake Total 980 844 Balance 980 844 Lab Results - Last 24 hrs: Laboratory Results - last 24 hr 10/24/19 10/24/19 10/24/19 Range/Units 17:44 17:44 17:44 WBC 7.4 (5.0-10.0) 10^3/uL RBC 5.62 (4.6-6.2) 10^6/uL Hgb 15.8 (14.0-18.0) g/dL Hct 47.0 (40.0-54.0) % MCV 83.6 (80-100) fL MCH 28.1 (27.0-34.0) pg MCHC 33.6 (33.0-35.0) g/dL Plt Count 332 (150-450) 10^3/uL Neut % (Auto) 72.4 (42.2-75.2) % Lymph % (Auto) 17.0 L (20.5-50.1) % [place] % (Auto) 9.1 H (2-8) % Eos % (Auto) 1.1 (1.0-3.0) % Baso % (Auto) 0.4 (0.0-1.0) % PT 10.2 (9.0-12.0) SEC INR 1.1 (0.9-1.2) APTT 26.5 (22.0-34.0) SEC Sodium 140 (136-145) mmol/L Potassium 3.5 (3.5-5.1) mmol/L Chloride 102 (98-107) mmol/L Carbon Dioxide 24 (21-32) mmol/L Anion Gap 17.5 H (7-13) mEq/L BUN 5 L (7-18) mg/dL Creatinine 0.82 (0.70-1.30) mg/dL Est Cr Clr Drug Dosing 155.93 mL/min Estimated GFR (MDRD) > 60 BUN/Creatinine Ratio 6.1 (No establ ref range) Glucose 109 H (74-99) mg/dL Calcium 8.4 L (8.5-10.1) mg/dL Phosphorus (2.6-4.7) mg/dL Magnesium (1.8-2.4) mg/dL Total Bilirubin 0.4 (0.2-1.0) mg/dL Direct Bilirubin (0.0-0.2) mg/dL Indirect Bilirubin AST 20 (15-37) U/L ALT 58 (16-63) U/L Alkaline Phosphatase 94 (46-116) U/L Total Protein 8.0 (6.4-8.2) g/dL Albumin 3.5 (3.4-5.0) g/dL Globulin 4.5 Albumin/Globulin Ratio 0.8 Lipase 126 (73-393) U/L Urine Color (YELLOW) Urine Appearance (CLEAR) Urine pH (5.0-9.0) Ur Specific [place] (1.005-1.030) Urine Protein (NEGATIVE) Urine Glucose (UA) (NEGATIVE) Urine Ketones (NEGATIVE) Urine Occult Blood (NEGATIVE) Urine Nitrite (NEGATIVE) Urine Bilirubin (NEGATIVE) Urine Urobilinogen (0.2-1.0) mg/dL Ur Leukocyte Esterase (NEGATIVE) Urine Opiates Screen (NEGATIVE) Ur Oxycodone Screen (NEGATIVE) Urine Methadone Screen (NEGATIVE) Ur Barbiturates Screen (NEGATIVE) U Tricyclic Antidepress (NEGATIVE) Ur Phencyclidine Scrn (NEGATIVE) Ur Amphetamine Screen (NEGATIVE) U Methamphetamines Scrn (NEGATIVE) Urine MDMA Screen (NEGATIVE) U Benzodiazepines Scrn (NEGATIVE) Urine Cocaine Screen (NEGATIVE) U Marijuana (THC) Screen (NEGATIVE) Ethyl Alcohol 125 (0) mg/dL 10/24/19 10/24/19 10/25/19 Range/Units 18:13 18:13 06:00 WBC (5.0-10.0) 10^3/uL RBC (4.6-6.2) 10^6/uL Hgb (14.0-18.0) g/dL Hct (40.0-54.0) % MCV (80-100) fL MCH (27.0-34.0) pg MCHC (33.0-35.0) g/dL Plt Count (150-450) 10^3/uL Neut % (Auto) (42.2-75.2) % Lymph % (Auto) (20.5-50.1) % [place] % (Auto) (2-8) % Eos % (Auto) (1.0-3.0) % Baso % (Auto) (0.0-1.0) % PT (9.0-12.0) SEC INR (0.9-1.2) APTT (22.0-34.0) SEC Sodium 142 (136-145) mmol/L Potassium 4.3 (3.5-5.1) mmol/L Chloride 106 (98-107) mmol/L Carbon Dioxide 28 (21-32) mmol/L Anion Gap 12.3 (7-13) mEq/L BUN 7 (7-18) mg/dL Creatinine 0.82 (0.70-1.30) mg/dL Est Cr Clr Drug Dosing 155.93 mL/min Estimated GFR (MDRD) > 60 BUN/Creatinine Ratio (No establ ref range) Glucose 81 (74-99) mg/dL Calcium 8.1 L (8.5-10.1) mg/dL Phosphorus 2.9 (2.6-4.7) mg/dL Magnesium 1.9 (1.8-2.4) mg/dL Total Bilirubin 0.8 (0.2-1.0) mg/dL Direct Bilirubin 0.2 (0.0-0.2) mg/dL Indirect Bilirubin 0.6 AST 22 (15-37) U/L ALT 53 (16-63) U/L Alkaline Phosphatase 83 (46-116) U/L Total Protein 6.2 L (6.4-8.2) g/dL Albumin 3.0 L (3.4-5.0) g/dL Globulin 3.2 Albumin/Globulin Ratio 0.94 Lipase (73-393) U/L Urine Color Yellow (YELLOW) Urine Appearance Clear (CLEAR) Urine pH 6.0 (5.0-9.0) Ur Specific [place] 1.015 (1.005-1.030) Urine Protein Negative (NEGATIVE) Urine Glucose (UA) Negative (NEGATIVE) Urine Ketones Negative (NEGATIVE) Urine Occult Blood Negative (NEGATIVE) Urine Nitrite Negative (NEGATIVE) Urine Bilirubin Negative (NEGATIVE) Urine Urobilinogen 0.2 (0.2-1.0) mg/dL Ur Leukocyte Esterase Negative (NEGATIVE) Urine Opiates Screen Negative (NEGATIVE) Ur Oxycodone Screen Negative (NEGATIVE) Urine Methadone Screen Negative (NEGATIVE) Ur Barbiturates Screen Negative (NEGATIVE) U Tricyclic Antidepress Negative (NEGATIVE) Ur Phencyclidine Scrn Negative (NEGATIVE) Ur Amphetamine Screen Negative (NEGATIVE) U Methamphetamines Scrn Negative (NEGATIVE) Urine MDMA Screen Negative (NEGATIVE) U Benzodiazepines Scrn Negative (NEGATIVE) Urine Cocaine Screen Negative (NEGATIVE) U Marijuana (THC) Screen Positive H (NEGATIVE) Ethyl Alcohol (0) mg/dL Med Orders - Current: Current Medications Acetaminophen (Tylenol) 650 mg PO Q4H PRN PRN Reason: Pain (Mild 1-3)/fever Folic Acid (Folic Acid) 1 mg PO DAILY [facility] Last Admin: 10/25/19 09:06 Dose: 1 mg Heparin Sodium (Porcine) (Heparin Sodium) 5,000 units SUBCUT Q8HR [facility] Last Admin: 10/25/19 06:23 Dose: 5,000 units Potassium Chloride/Sodium Chloride (Normal Saline With 20 Meq Kcl) 1,000 mls @ 150 mls/hr IV ASDIRECTED [facility] Last Admin: 10/25/19 02:38 Dose: 150 mls/hr Lorazepam (Ativan) 0 mg PO Q1H PRN; Protocol PRN Reason: Withdrawal Symptoms Last Admin: 10/25/19 00:03 Dose: 1 mg Lorazepam (Ativan) 0 mg IVPUSH Q1H PRN; Protocol PRN Reason: Withdrawal Symptoms Multivitamins/Minerals (Vitamins And Minerals) 1 tab PO WITHBREAKFAST [facility] Last Admin: 10/25/19 09:06 Dose: 1 tab Ondansetron HCl (Zofran Odt) 4 mg PO Q6H PRN PRN Reason: nausea, able to take PO Temazepam (Restoril) 15 mg PO BEDTIME PRN PRN Reason: Sleep Thiamine HCl (Vitamin B-1) 100 mg PO DAILY [facility] Last Admin: 10/25/19 09:06 Dose: 100 mg Discontinued Medications Multivitamins/Minerals 10 ml/Thiamine HCl 100 mg/ Folic Acid 1 mg/ Lactated Ringer's 1,011.2 mls @ 999 mls/hr IV .BOLUS ONE Stop: 10/24/19 18:23 Last Admin: 10/24/19 18:08 Dose: 999 mls/hr Lorazepam (Ativan) 2 mg IVPUSH ONETIME ONE Stop: 10/24/19 17:24 Last Admin: 10/24/19 18:05 Dose: 2 mg Ondansetron HCl (Zofran) 4 mg IV ONETIME ONE Stop: 10/24/19 17:24 Last Admin: 10/24/19 18:02 Dose: 4 mg Sodium Chloride (Saline Flush) 10 ml FLUSH ASDIRECTED PRN PRN Reason: Keep Vein Open Last Admin: 10/24/19 18:03 Dose: 10 ml - Exam General: Reports: Alert, Oriented Neck: Reports: Supple Lungs: Reports: Clear to Auscultation, Normal Respiratory Effort Cardiovascular: Reports: Regular Rate, Regular Rhythm GI/Abdominal Exam: Normal Bowel Sounds, Soft, Non-Tender Extremities: No Pedal Edema Psy/Mental Status: Reports: Alert, Normal Affect, Normal Mood. Denies: Agitated , Withdrawal Symptoms
[2019-10-25 11:16] VITALS: BP 133/83; PULSE 78
== END 2019-10-25 13:25 | disposition home or self-care (01) ==
LOC: DL.ED 17:00 → DL.MS 18:29
PROVIDERS: ADMIT Internal Medicine; ATTEND Internal Medicine
DX: F10.229 Alcohol dependence with intoxication, unspecified (principal); F10.230 Alcohol dependence with withdrawal, uncomplicated; F10.280 Alcohol dependence with alcohol-induced anxiety disorder; E66.9 Obesity, unspecified; Z68.43 Body mass index [BMI] 50.0-59.9, adult; Y90.0 Blood alcohol level of less than 20 mg/100 ml
CPT/HCPCS: 36415; 80048; 80053; 80076; 80305-QW; 80307; 81003; 83690; 83735; 84100; 85025; 85610; 85730; 96361; 96365; 96366; 96372; 96375; 99285-25; A9270-GY; G0378; J1644; J2060; J2405; J3411; J3480; J3490; J7120

== ENCOUNTER 2020-01-11 08:23 | Inpatient (IN) | payer MEDICAID ==
--- NOTE | 2020-01-11 08:43 | EDM.PDOCBH ---
ED HPI GENERAL MEDICAL PROBLEM - General Chief Complaint: Drug or Alcohol Abuse Stated Complaint: [id number] Time Seen by Provider: 01/11/20 08:43 Source of Information: Reports: Patient, RN, RN Notes Reviewed History Limitations: Reports: No Limitations - History of Present Illness INITIAL COMMENTS - FREE TEXT/NARRATIVE: Patient presents to ER with complaint of alcohol withdrawal. Patient states he drinks hard liquor, 1 to 2 L/day. Patient states last drink was yesterday. Patient states he is ready and would like to stop drinking, would like help. Patient states he has worked with the [facility] in the past. Patient admits to headache, states he can hardly keep his eyes open, tremor, sweats, nausea but no vomiting. Patient denies auditory or visual hallucinations, states he has had hallucinations in the past with withdrawals. Patient denies seizure activity with alcohol withdrawal. Patient admits to severe anxiety, states he feels his arms are numb and tingly. Onset: Gradual Abdominal Pain Score (Numeric/FACES): 5 - Related Data Allergies Allergy/AdvReac Type Severity Reaction Status Date / Time No Known Allergies Allergy Verified 01/11/20 08:35 CIWAA - CIWAA CIWAA Nausea And Vomitin - Constant Nausea, Frequent Dry Heaves and Vomiting CIWAA Tremor: 4 - Moderate, with Patient's Arms Extended CIWAA Paroxysmal Sweats: 3 CIWAA Anxiety: 7 - Equal to Acute Panic States in Severe Delirium or Acute CIWAA Agitation: 1 -Somewhat More than Normal Activity CIWAA Tactile Disturbances: 3 - Moderate Itching, Pins and [place], Burning or Numbness CIWAA Auditory Disturbances: 1 - Very Mild Harshness or Ability to Frighten CIWAA Visual Disturbances: 2 - Mild Sensitivity CIWAA Headache, Fullness in Head: 4 - Moderately Severe CIWAA Orientation And Clouding Of Sensorium: 1 - Cannot do Serial Additions or is Uncertain About Date CIWAA Scale Score: 33 Past Medical History - Past Health History Medical/Surgical History: Denies Medical/Surgical History HEENT History: Reports: Impaired Vision Cardiovascular History: Reports: None Respiratory History: Reports: None Gastrointestinal History: Reports: None Genitourinary History: Reports: None Musculoskeletal History: Reports: Gout Neurological History: Reports: None Psychiatric History: Reports: Addiction, Anxiety, Panic Attack Endocrine/Metabolic History: Reports: Obesity/BMI 30+ Hematologic History: Reports: None Immunologic History: Reports: None Oncologic (Cancer) History: Reports: None Dermatologic History: Reports: Other (See Below) Other Dermatologic History: severe acne - Infectious Disease History Infectious Disease History: Reports: Chicken Pox - Past Surgical History Head Surgeries/Procedures: Reports: None HEENT Surgical History: Reports: Tonsillectomy Cardiovascular Surgical History: Reports: None Respiratory Surgical History: Reports: None GI Surgical History: Reports: None Male Surgical History: Reports: None Endocrine Surgical History: Reports: None Neurological Surgical History: Reports: None Musculoskeletal Surgical History: Reports: None Social & Family History - Family History Family Medical History: Noncontributory - Tobacco Use Smoking Status *Q: Never Smoker Second Hand Smoke Exposure: No - Caffeine Use Caffeine Use: Reports: Coffee, Soda - Alcohol Use Date of Last Drink: 01/10/20 - Recreational Drug Use Recreational Drug Use: Yes Recreational Drug Type: Reports: Marijuana/Hashish Other Recreational Drug Type: smoked weed month ago - Living Situation & Occupation Living situation: Reports: Single, with Family Occupation: Unemployed ED ROS GENERAL - Review of Systems Review Of Systems: Comprehensive ROS is negative, except as noted in HPI. ED EXAM, BEHAVIORAL HEALTH - Physical Exam Exam: See Below Exam Limited By: No Limitations General Appearance: Alert, WD/WN, Moderate Distress, Obese Eye Exam: Bilateral Eye: EOMI, Normal Inspection Ears: Normal External Exam, Hearing Grossly Normal Nose: Normal Inspection Throat/Mouth: Normal Inspection, Normal Voice, No Airway Compromise Head: Atraumatic, Normocephalic Neck: Normal Inspection, Supple, Non-Tender, Full Range of Motion Respiratory/Chest: No Respiratory Distress, No Accessory Muscle Use, Chest Non- Tender, Decreased Breath Sounds Cardiovascular: Normal Peripheral Pulses, Regular Rate, Rhythm, No Edema, No Gallop, No JVD, No Murmur, No Rub GI/Abdominal: Normal Bowel Sounds, Soft, Non-Tender (Male) Exam: Deferred Rectal (Males) Exam: Deferred Back Exam: Normal Inspection, Full Range of Motion, NT Extremities: Normal Inspection, Normal Range of Motion, Non-Tender, Normal Capillary Refill, No Pedal Edema Neurological: Alert, Inattentive Psychiatric: Alert, Oriented, Restless, Agitated. No: Auditory Hallucinations, Visual Hallucinations Skin Exam: Warm, Intact, Normal color, No rash, Diaphoretic COURSE, BEHAVIORAL HEALTH COMP - Course Vital Signs: Last Vital Signs Temp 97 F 01/11/20 08:28 Pulse 85 01/11/20 09:40 Resp 20 01/11/20 08:28 BP 163/83 H 01/11/20 09:40 Pulse Ox 92 L 01/11/20 09:40 Orders, Labs, Meds: Active Orders 24 hr Category Date Time Status Peripheral IV Care [RC] . DIRECTED Care 01/11/20 08:48 Active DRUG SCREEN URINE BIORAD [URCHEM] Stat Lab 01/11/20 08:48 Ordered UA RFX ASHLEY AND CULT IF INDIC [URIN] Stat Lab 01/11/20 08:48 Ordered MVI, Adult with Vitamin K [Infuvite Adult] 10 ml Med 01/11/20 09:30 Active Folic Acid 1 mg Thiamine [Vitamin B-1] 100 mg Lactated Ringers [Ringers, Lactated] 1,000 ml IV ONETIME Peripheral IV Insertion Adult [OM.PC] Stat Oth 01/11/20 08:48 Ordered Medication Orders Multivitamins/Minerals 10 ml/Folic Acid 1 mg/ Thiamine HCl 100 mg/ Lactated Ringer's 1,011.2 mls @ 999 mls/hr IV ONETIME ONE Stop: 01/11/20 10:30 Last Admin: 01/11/20 09:30 Dose: 999 mls/hr Documented by: JOSE Laboratory Tests 01/11/20 01/11/20 Range/Units 09:03 09:03 WBC 5.0 (5.0-10.0) 10^3/uL RBC 5.55 (4.6-6.2) 10^6/uL Hgb 15.8 (14.0-18.0) g/dL Hct 46.7 (40.0-54.0) % MCV 84.1 (80-100) fL MCH 28.5 (27.0-34.0) pg MCHC 33.8 (33.0-35.0) g/dL Plt Count 317 (150-450) 10^3/uL Neut % (Auto) 58.8 (42.2-75.2) % Lymph % (Auto) 21.3 (20.5-50.1) % [place] % (Auto) 17.1 H (2-8) % Eos % (Auto) 2.4 (1.0-3.0) % Baso % (Auto) 0.4 (0.0-1.0) % Sodium 142 (136-145) mmol/L Potassium 3.4 L (3.5-5.1) mmol/L Chloride 104 (98-107) mmol/L Carbon Dioxide 23 (21-32) mmol/L Anion Gap 18.4 H (7-13) mEq/L BUN 6 L (7-18) mg/dL Creatinine 0.93 (0.70-1.30) mg/dL Est Cr Clr Drug Dosing 137.49 mL/min Estimated GFR (MDRD) > 60 BUN/Creatinine Ratio 6.5 (No establ ref range) Glucose 102 H (74-99) mg/dL Calcium 8.2 L (8.5-10.1) mg/dL Total Bilirubin 0.7 (0.2-1.0) mg/dL AST 76 H (15-37) U/L ALT 134 H (16-63) U/L Alkaline Phosphatase 96 (46-116) U/L Total Protein 7.9 (6.4-8.2) g/dL Albumin 3.6 (3.4-5.0) g/dL Globulin 4.3 Albumin/Globulin Ratio 0.8 Ethyl Alcohol 14 (0) mg/dL Medications Generic Name Dose Route Start Last Admin Trade Name Freq PRN Reason Stop Dose Admin Multivitamins/Minerals 10 ml/ 1,011.2 mls @ 999 mls/hr 01/11/20 09:30 01/11/20 09:30 Folic Acid 1 mg/ Thiamine HCl IV 01/11/20 10:30 999 mls/hr 100 mg/ Lactated Ringer's ONETIME ONE Administration Discontinued Medications Generic Name Dose Route Start Last Admin Trade Name Freq PRN Reason Stop Dose Admin Lorazepam 2 mg 01/11/20 08:48 01/11/20 09:11 Ativan IVPUSH 01/11/20 08:49 2 mg ONETIME ONE Administration Ondansetron HCl 4 mg 01/11/20 09:02 01/11/20 09:07 Zofran IV 01/11/20 09:03 4 mg ONETIME ONE Administration Sodium Chloride 10 ml 01/11/20 08:47 01/11/20 09:10 Saline Flush FLUSH 10 ml ASDIRECTED PRN Administration Keep Vein Open Discharge vs Psych Eval/Treatment:: 01/11/20 09:59 Discussed patient case with Dr. Coleman who agreed to accept the patient for inpatient admission. Departure - Departure Time of Disposition: 09:59 Disposition: Admitted As Inpatient 67 Condition: Fair Clinical Impression: Alcohol withdrawal syndrome Qualifiers: Complication of substance-induced condition: uncomplicated Qualified Code(s): F10.230 - Alcohol dependence with withdrawal, uncomplicated - Discharge Information *PRESCRIPTION DRUG MONITORING PROGRAM REVIEWED*: No *COPY OF PRESCRIPTION DRUG MONITORING REPORT IN PATIENT GIOVANNY: No Sepsis Event Note (ED) - Evaluation Sepsis Screening Result: No Definite Risk - Focused Exam Vital Signs: Vital Signs Temp Pulse Resp Pulse Ox 01/11/20 08:28 97 F 89 20 98 - My Orders Last 24 Hours: My Active Orders 01/11/20 08:48 Peripheral IV Care [RC] . DIRECTED DRUG SCREEN URINE BIORAD [URCHEM] Stat UA RFX ASHLEY AND CULT IF INDIC [URIN] Stat Peripheral IV Insertion Adult [OM.PC] Stat 01/11/20 09:30 MVI, Adult with Vitamin K [Infuvite Adult] 10 ml Folic Acid 1 mg Thiamine [Vitamin B-1] 100 mg Lactated Ringers [Ringers, Lactated] 1,000 ml IV ONETIME - Assessment/Plan Last 24 Hours: My Active Orders 01/11/20 08:48 Peripheral IV Care [RC] . DIRECTED DRUG SCREEN URINE BIORAD [URCHEM] Stat UA RFX ASHLEY AND CULT IF INDIC [URIN] Stat Peripheral IV Insertion Adult [OM.PC] Stat 01/11/20 09:30 MVI, Adult with Vitamin K [Infuvite Adult] 10 ml Folic Acid 1 mg Thiamine [Vitamin B-1] 100 mg Lactated Ringers [Ringers, Lactated] 1,000 ml IV ONETIME
[2020-01-11] MEDS ORDERED: LORazepam 2 MG/ML SDV IVPUSH ONE (08:48)
[2020-01-11] MEDS ORDERED: MVI, Adult with Vitamin K 10 ML, Folic Acid 1 MG, Thiamine 100 MG in Lactated Ringers 1... IV ONE ×8 (08:48→09:30)
[2020-01-11] MEDS ORDERED: Ondansetron 4 MG/2 ML SDV IV ONE (09:02)
[2020-01-11] MEDS: Sodium Chloride 0.9% 10 ML Syringe FLUSH PRN ×2 (09:07→09:10)
[2020-01-11 09:26] LABS: ANION GAP 18.4 mEq/L (7-13); CHLORIDE,CL 104 mmol/L (98-107); SODIUM,NA 142 mmol/L (136-145)
[2020-01-11] MEDS ORDERED: Acetaminophen/oxyCODONE 325-5 MG Tab PO PRN (09:49)
[2020-01-11] MEDS ORDERED: Ondansetron 4 MG Tab.DIS PO PRN (09:49)
[2020-01-11] MEDS ORDERED: LORazepam 2 MG/ML SDV IVPUSH PRN (09:49)
[2020-01-11] MEDS ORDERED: LORazepam 0.5 MG Tab PO PRN (09:49)
[2020-01-11] MEDS ORDERED: Acetaminophen 325 MG Tab PO PRN (09:49)
[2020-01-11] MEDS ORDERED: Docusate Sodium 100 MG Cap PO PRN (09:49)
[2020-01-11] MEDS ORDERED: Potassium Chloride 10 MEQ Tab.ER PO ONE (12:15)
--- NOTE | 2020-01-11 17:05 | HP ---
CHIEF COMPLAINT: Alcohol withdrawal symptoms and history of alcohol abuse. HISTORY OF PRESENT ILLNESS: The patient is a 29-year-old male who was admitted through the emergency room because he was complaining of alcohol withdrawal and the patient states that he drinks hard liquor about 1 to 2 L a day and he quit drinking yesterday because his body cannot take it anymore and he is ready to stop and quit drinking and also would like some help. He states that he is having some headache, also has some tremors and sweat and nausea, but he denies any auditory or visual hallucination and denies any vomiting, fever, dysuria, seizures, nor any other complaints. Because of the above, he mentioned that he had this in the past and also had been into the treatment facility twice in the past. PAST MEDICAL HISTORY: Remarkable for obesity, alcoholism, and anxiety. FAMILY HISTORY: Noncontributory. SOCIAL HISTORY: Admits drinking alcohol regularly, but denies any meth or heroin use and denies smoking cigarettes. REVIEW OF SYSTEMS: As in HPI. The rest of the review of systems is negative. MEDICATIONS: Home medications none. PHYSICAL EXAMINATION: General: The patient is alert and oriented, not in any acute distress. Vital Signs: Blood pressure is 163/83, pulse of 85, respirations 20, temperature of 97, saturation is 92% on room air. SHEENT: Normocephalic. There are pink palpebral conjunctivae. Sclerae anicteric. Neck: No JVD. No lymphadenopathy. Heart: Regular rate and rhythm. Normal S1 and S2. No gallops. No rubs. Lungs: Equal bilaterally. No crackles, no wheezing. Abdomen: Obese, soft, nontender. Bowel sounds positive. Extremities: Negative for any pedal edema. No calf tenderness. LABORATORY DATA: CBC, WBC is 5, hemoglobin is 15.8, hematocrit is 46.7, platelet is 317. Comp panel remarkable for potassium of 3.4, anion gap of 18.4. Glucose is 102, calcium is 8.2. ALT is 134 and AST is 76. The rest of the panel unremarkable. ADMITTING DIAGNOSES: 1. Alcohol withdrawal syndrome. 2. Alcoholism and alcohol abuse. 3. Obesity. 4. Hypokalemia. PLAN: The patient is going to be admitted to General Medicine floor. He will be on a DT protocol. He will be started on IV fluids. Potassium will be repleted, and he will be on thiamine, folate, and multivitamins. Social Service is also consulted because of his alcoholism. The patient is a full code. [facility] /[id number]
[2020-01-11] MEDS: Sodium Chloride 0.9% 1,000 ML IV SCH (19:31)
[2020-01-11] MEDS: Multivitamins, Therapeutic with Minerals Tab PO SCH (22:22)
[2020-01-11] MEDS: Thiamine 100 MG Tab PO SCH (22:22)
[2020-01-12] MEDS: Sodium Chloride 0.9% 1,000 ML IV SCH (03:02)
[2020-01-12] MEDS: Folic Acid 1 MG Tab PO SCH (09:06)
--- NOTE | 2020-01-12 09:31 | PN ---
DATE: 01/12/2020 SUBJECTIVE: The patient is doing well this morning and he denies any hallucination or any tremors or chest pain, shortness of breath, nor any other complaints. OBJECTIVE: Vital Signs: Blood pressure is 125/59, pulse of 75, respirations 20, temperature of 98.3, saturation is 94% on room air. Heart: Regular rate and rhythm. Normal S1 and S2. No gallops. No rubs. Lungs: Clear. No crackles, no wheezing. Abdomen: Soft, nontender. Bowel sounds positive. Extremities: Negative for any pedal edema. No calf tenderness. Neurologic: Nonfocal. MEDICATIONS: Reviewed. PLAN: We will continue with his present management, and if he continues to do well, anticipate discharge in a.m. [facility] /[id number]
[2020-01-12] MEDS: Thiamine 100 MG Tab PO SCH (20:36)
[2020-01-12] MEDS: Multivitamins, Therapeutic with Minerals Tab PO SCH (20:36)
[2020-01-13 07:25] VITALS: BP 127/56; PULSE 63
[2020-01-13] MEDS: Folic Acid 1 MG Tab PO SCH (08:40)
--- NOTE | 2020-01-13 10:36 | PN ---
DATE: 01/13/2020 SUBJECTIVE: The patient had a good night's sleep, and he did not need any lorazepam during the night and this morning, he is feeling good and he is ready to go home. Social Service has visited with him yesterday, and he is going to follow up with him next week. The patient denies any headache, chest pain, shortness of breath, nor any other complaints. OBJECTIVE: Vital Signs: Blood pressure is 127/56, pulse 63, respirations 16, temperature of 97.9, and saturation is 99% on room air. Heart: Regular rate and rhythm. Normal S1 and S2. No gallops. No rubs. Lungs: Equal bilaterally. No crackles, no wheezing. Abdomen: Soft, nontender. Bowel sounds are positive. Extremities: Negative for any pedal edema. No calf tenderness. PLAN: We will discharge the patient home today, and he is going to follow up at [facility] next week. [facility] /[id number]
--- NOTE | 2020-01-13 11:15 | DISCH ---
FINAL DIAGNOSES: 1. Alcohol withdrawal syndrome. 2. Alcoholism and alcohol abuse. 3. Obesity. 4. Hypokalemia. BRIEF HISTORY OF PRESENT ILLNESS: Please see H and P. PERTINENT LABORATORY, X-RAY, AND OTHER TESTS ON ADMISSION: See H and P. HOSPITAL COURSE: The patient was admitted to General Medicine floor. He was placed on DT protocol. Potassium was repleted orally. Hospital course was uncomplicated, and he received IV lorazepam during his hospital stay, but this was slowly tapered and he did well. The rest of the hospital course was unremarkable. CONDITION ON DISCHARGE: Improved. The patient is going to follow up at the [facility] [place] next week. [facility] /[id number]
== END 2020-01-13 09:05 | disposition home or self-care (01) | DRG 897 ==
LOC: DL.ED 08:23 → DL.MS 09:30
PROVIDERS: ADMIT Internal Medicine; ATTEND Internal Medicine
DX: F10.230 Alcohol dependence with withdrawal, uncomplicated (principal); F10.239 Alcohol dependence with withdrawal, unspecified; Z68.42 Body mass index [BMI] 45.0-49.9, adult; E66.9 Obesity, unspecified; M10.9 Gout, unspecified; Z98.890 Other specified postprocedural states; E87.6 Hypokalemia; F41.9 Anxiety disorder, unspecified; H54.7 Unspecified visual loss; Z90.89 Acquired absence of other organs
CPT/HCPCS: 36415; 80053; 80305-QW; 80307; 81003; 85025; 96374; 96375; 99284-25; A9270-GY; J2060; J2405; J3411; J3490; J7030; J7120

== ENCOUNTER 2020-08-08 10:33 | Emergency (ER) | payer MEDICAID ==
[2020-08-08 11:36] VITALS: BP 139/80; PULSE 89
[2020-08-08] MEDS ORDERED: LORazepam 2 MG/ML SDV IM ONE (11:46)
--- NOTE | 2020-08-08 11:52 | EDM.PDOCBH ---
<LawrenceMackenzieElaine Osborne - Last Filed: 08/08/20 12:08> ED HPI GENERAL MEDICAL PROBLEM - General Chief Complaint: Behavioral/Psych Stated Complaint: PANIC ATTACK Time Seen by Provider: 08/08/20 11:25 Source of Information: Reports: Patient History Limitations: Reports: No Limitations - History of Present Illness INITIAL COMMENTS - FREE TEXT/NARRATIVE: Patient is a 30 yo male, history of anxiety, who presents to the ED with c/o of a panic attack. The patient states he had a nightmare this morning and he awoke feeling anxious. His anxiety continued to get worse which led to his panic attack. He has some mild dizziness and feels like his heart is racing on exam, but denies any headache, chest pain, SOB, tremors, or thoughts of suicide or self-harm. He has not taken any medications, no alcohol, or drugs to improve his symptoms today. He denies recent alcohol use, but reports use of Marijuana yesterday. He denies tobacco or other illicit drug use. He states he was previously taking Zoloft and another medication for his anxiety which he cannot name, but said they did not improve is symptoms so he discontinued them after two weeks. Aside from this he offers no other acute concerns today. Onset: Today, Sudden Duration: Getting Worse Improves with: Reports: None Worsens with: Reports: None Associated Symptoms: Reports: No Other Symptoms - Related Data Allergies Allergy/AdvReac Type Severity Reaction Status Date / Time No Known Allergies Allergy Verified 08/08/20 11:36 Home Meds: Home Meds . [No Known Home Meds] 01/11/20 [History] Past Medical History - Past Health History Medical/Surgical History: Denies Medical/Surgical History HEENT History: Reports: Impaired Vision Cardiovascular History: Reports: Hypertension Respiratory History: Reports: None Gastrointestinal History: Reports: None Genitourinary History: Reports: None Musculoskeletal History: Reports: Gout Neurological History: Reports: None Psychiatric History: Reports: Addiction, Anxiety, Panic Attack Endocrine/Metabolic History: Reports: Obesity/BMI 30+ Hematologic History: Reports: None Immunologic History: Reports: None Oncologic (Cancer) History: Reports: None Dermatologic History: Reports: Other (See Below) Other Dermatologic History: severe acne - Infectious Disease History Infectious Disease History: Reports: Chicken Pox - Past Surgical History Head Surgeries/Procedures: Reports: None HEENT Surgical History: Reports: Tonsillectomy Cardiovascular Surgical History: Reports: None Respiratory Surgical History: Reports: None GI Surgical History: Reports: None Male Surgical History: Reports: None Endocrine Surgical History: Reports: None Neurological Surgical History: Reports: None Musculoskeletal Surgical History: Reports: None Social & Family History - Family History Family Medical History: No Pertinent Family History - Tobacco Use Tobacco Use Status *Q: Never Tobacco User - Caffeine Use Caffeine Use: Reports: Coffee, Soda - Recreational Drug Use Recreational Drug Use: No - Living Situation & Occupation Living situation: Reports: Single, with Family Occupation: Unemployed ED ROS GENERAL - Review of Systems Review Of Systems: Comprehensive ROS is negative, except as noted in HPI. ED EXAM, BEHAVIORAL HEALTH - Physical Exam Exam: See Below Exam Limited By: No Limitations General Appearance: Alert, WD/WN, Anxious Eye Exam: Bilateral Eye: EOMI, Normal Inspection Nose: Normal Inspection, Normal Mucosa, No Blood Throat/Mouth: Normal Inspection, Normal Lips, Normal Teeth, Normal Gums, Normal Oropharynx, Normal Voice, No Airway Compromise Head: Atraumatic, Normocephalic Neck: Normal Inspection, Supple, Non-Tender, Full Range of Motion Respiratory/Chest: No Respiratory Distress, Lungs Clear, Normal Breath Sounds, No Accessory Muscle Use, Chest Non-Tender Cardiovascular: Normal Peripheral Pulses, Regular Rate, Rhythm, No Edema, No Gallop, No JVD, No Murmur, No Rub GI/Abdominal: Normal Bowel Sounds, Soft, Non-Tender, No Organomegaly, No Distention, No Abnormal Bruit, No Mass (Male) Exam: Deferred Rectal (Males) Exam: Deferred Extremities: Normal Inspection, Normal Range of Motion, Non-Tender, Normal Capillary Refill, No Pedal Edema Neurological: Alert, Normal Mood/Affect, CN II-XII Intact, Normal Cognition, Normal Gait, Normal Reflexes, No Motor/Sensory Deficits, Oriented x 3 Psychiatric: Alert, Normal Affect, Normal Cognition, Other (appears mildy anxious) Skin Exam: Warm, Dry, Normal color, No rash COURSE, BEHAVIORAL HEALTH COMP - Course Re-Assessment/Re-Exam: Patient stated his father would pick him up from the ED. He verbalized his understanding that he is unable to drive for the next 12 hours prior to receiving Lorazepam. He was given 1mg Lorazepam IM. Patient states his symptoms resolved with use of Lorazepam. He denies headaches, dizziness, SOB, palpitations, chest pain or thoughts of suicide or self harm after administration of medication. His mood and affect appear improved and calm prior to discharge. Departure - Departure Time of Disposition: 12:19 Disposition: Home, Self-Care 01 Condition: Good Clinical Impression: Severe anxiety with panic - Discharge Information *PRESCRIPTION DRUG MONITORING PROGRAM REVIEWED*: Not Applicable *COPY OF PRESCRIPTION DRUG MONITORING REPORT IN PATIENT GIOVANNY: Not Applicable Instructions: Panic Attack, [id number], Managing Anxiety, Adult Referrals: Bjorn Davis NP [Primary Care Provider] - Forms: ED Department Discharge Care Plan Goals: Strongly encouraged the patient to follow up with primary care to gain better control of his anxiety. The patient states he was previously on Zoloft but discontinued the medication because he didn't feel it was working. -The patient was given Ativan in the ED and was instructed not to drive for the next 12 hours. -Recommended the patient avoid alcohol and illicit drug us as it may be a trigger of his panic attacks. -Follow up with ED or primary care if the patient develops chest pain, SOB, or thoughts of suicide or self-harm. Sepsis Event Note (ED) - Evaluation Sepsis Screening Result: No Definite Risk <Chioma Cisneros - Last Filed: 08/09/20 14:06> COURSE, BEHAVIORAL HEALTH COMP - Course Vital Signs: Last Vital Signs Temp 96.4 F L 08/08/20 11:15 Pulse 89 08/08/20 11:15 Resp 16 08/08/20 11:15 BP 139/80 08/08/20 11:15 Pulse Ox 96 08/08/20 11:15 Orders, Labs, Meds: Medications Discontinued Medications Generic Name Dose Route Start Last Admin Trade Name Leroyq PRN Reason Stop Dose Admin Lorazepam 1 mg 08/08/20 11:46 08/08/20 11:54 Lorazepam 2 Mg/Ml Sdv IM 08/08/20 11:47 1 mg ONETIME ONE Administration Re-Assessment/Re-Exam: I personally performed or re-performed the physical examination and medical decision making. I have verified all student documentation or findings, including history, physical exam and/or medical decision making.
== END 2020-08-08 12:30 | disposition home or self-care (01) ==
LOC: DL.ED 10:33
DX: F41.0 Panic disorder [episodic paroxysmal anxiety] (principal); I10 Essential (primary) hypertension; E66.9 Obesity, unspecified; Z68.43 Body mass index [BMI] 50.0-59.9, adult
CPT/HCPCS: 96372; 99283; J2060

== ENCOUNTER 2020-08-11 17:03 | Emergency (ER) | payer MEDICAID ==
[2020-08-11 17:28] VITALS: BP 147/89; PULSE 92
--- NOTE | 2020-08-11 17:55 | EDM.PDOCBH ---
ED HPI GENERAL MEDICAL PROBLEM - General Chief Complaint: Drug or Alcohol Abuse Stated Complaint: ALCOHOL WITHDRAWL Time Seen by Provider: 08/11/20 17:48 Source of Information: Reports: Patient, Senior Living Records, Old Records, RN History Limitations: Reports: No Limitations - History of Present Illness INITIAL COMMENTS - FREE TEXT/NARRATIVE: Patient presents to the ED via personal vehicle with complaints of anxiety related to alcohol withdrawal. The patient was seen in this facility four days ago on 08/08/2020 for feelings of panic attack; he was subsequently treated with Ativan PO and was instructed to follow-up with primary care provider to restart antianxiety medications. The patient states he started drinking hard liquor the night he was last examined in this facility, and continue to drink until late last night. He estimates he has drank about one gallon of hard liquor in this time. He denies recent illness, fever, shaking chills, chest pain, shortness of breath, dyspepsia, nausea, vomiting, constipation, or diarrhea. He does attest to palpitations and feelings of panic. He has not taken any medications for this problem. He has not followed up with primary care as previously instructed. He denies tobacco use but attests to smoking marijuana over the weekend. He denies any additional recreational drug use. - Related Data Allergies Allergy/AdvReac Type Severity Reaction Status Date / Time No Known Allergies Allergy Verified 08/11/20 17:28 Home Meds: Home Meds . [No Known Home Meds] 01/11/20 [History] Past Medical History - Past Health History Medical/Surgical History: Denies Medical/Surgical History HEENT History: Reports: Impaired Vision Cardiovascular History: Reports: Hypertension Respiratory History: Reports: None Gastrointestinal History: Reports: None Genitourinary History: Reports: None Musculoskeletal History: Reports: Gout Neurological History: Reports: None Psychiatric History: Reports: Addiction, Anxiety, Panic Attack Endocrine/Metabolic History: Reports: Obesity/BMI 30+ Hematologic History: Reports: None Immunologic History: Reports: None Oncologic (Cancer) History: Reports: None Dermatologic History: Reports: Other (See Below) Other Dermatologic History: severe acne - Infectious Disease History Infectious Disease History: Reports: Chicken Pox - Past Surgical History Head Surgeries/Procedures: Reports: None HEENT Surgical History: Reports: Tonsillectomy Cardiovascular Surgical History: Reports: None Respiratory Surgical History: Reports: None GI Surgical History: Reports: None Male Surgical History: Reports: None Endocrine Surgical History: Reports: None Neurological Surgical History: Reports: None Musculoskeletal Surgical History: Reports: None Social & Family History - Family History Family Medical History: No Pertinent Family History - Tobacco Use Tobacco Use Status *Q: Never Tobacco User Second Hand Smoke Exposure: No - Caffeine Use Caffeine Use: Reports: None - Recreational Drug Use Recreational Drug Use: No - Living Situation & Occupation Living situation: Reports: Single, with Family Occupation: Unemployed ED ROS GENERAL - Review of Systems Review Of Systems: Comprehensive ROS is negative, except as noted in HPI. ED EXAM, BEHAVIORAL HEALTH - Physical Exam Exam: See Below Exam Limited By: No Limitations General Appearance: Alert, Anxious, Obese Eye Exam: Bilateral Eye: EOMI, PERRL (5mm), Other (Photophobia to light) Ears: Normal External Exam, Normal Canal, Hearing Grossly Normal, Normal TMs Nose: Normal Inspection, Normal Mucosa, No Blood Throat/Mouth: Normal Lips, Normal Teeth, Normal Gums, Normal Voice, No Airway Compromise. No: Normal Oropharynx (Dry mucous membranes) Head: Atraumatic, Normocephalic Neck: Normal Inspection, Supple, Non-Tender, Full Range of Motion Respiratory/Chest: No Respiratory Distress, Lungs Clear, Normal Breath Sounds, No Accessory Muscle Use, Chest Non-Tender Cardiovascular: Normal Peripheral Pulses, Regular Rate, Rhythm, No Edema, No Gallop, No JVD, No Murmur, No Rub GI/Abdominal: Normal Bowel Sounds, Soft, Non-Tender, No Distention, No Mass, Pelvis Stable (Male) Exam: Deferred Rectal (Males) Exam: Deferred Back Exam: Normal Inspection, Full Range of Motion Extremities: Normal Inspection, Normal Range of Motion, Non-Tender, Normal Capillary Refill Neurological: Alert, CN II-XII Intact, Normal Gait, Oriented x 3, Opens Eyes to Commands, Withdraws to Pain. No: Memory Loss Remote Events, Memory Loss Recent Events, Slow Response to Commands, Abnormal Finger to Nose, Abnormal Sensation, Abnormal Light Touch, Abnormal Motor Psychiatric: Alert, Normal Affect, Depressed Mood, Restless, Poor Eye Contact Skin Exam: Warm, Intact, Normal color, No rash, Diaphoretic. No: Ecchymosis, Erythema, Jaundice, Mottled, Pallor, Petechiae COURSE, BEHAVIORAL HEALTH COMP - Course Vital Signs: Last Vital Signs Temp 98 F 08/11/20 17:18 Pulse 92 08/11/20 17:18 Resp 22 H 08/11/20 17:18 BP 147/89 H 08/11/20 17:18 Pulse Ox 98 08/11/20 17:18 Orders, Labs, Meds: Laboratory Tests 08/11/20 08/11/20 08/11/20 Range/Units 17:50 17:50 17:50 WBC 9.9 (5.0-10.0) 10^3/uL RBC 5.38 (4.6-6.2) 10^6/uL Hgb 15.5 (14.0-18.0) g/dL Hct 45.6 (40.0-54.0) % MCV 84.8 (80-100) fL MCH 28.8 (27.0-34.0) pg MCHC 34.0 (33.0-35.0) g/dL Plt Count 307 (150-450) 10^3/uL Neut % (Auto) 75.8 H (42.2-75.2) % Lymph % (Auto) 15.5 L (20.5-50.1) % [place] % (Auto) 7.4 (2-8) % Eos % (Auto) 0.9 L (1.0-3.0) % Baso % (Auto) 0.4 (0.0-1.0) % Sodium 144 (136-145) mmol/L Potassium 3.6 (3.5-5.1) mmol/L Chloride 104 (98-107) mmol/L Carbon Dioxide 28 (21-32) mmol/L Anion Gap 15.6 H (7-13) mEq/L BUN 8 (7-18) mg/dL Creatinine 0.95 (0.70-1.30) mg/dL Est Cr Clr Drug Dosing 129.66 mL/min Estimated GFR (MDRD) > 60 BUN/Creatinine Ratio 8.4 (No establ ref range) Glucose 97 (74-99) mg/dL Lactic Acid 2.3 H* (0.4-2.0) mmol/L Calcium 8.2 L (8.5-10.1) mg/dL Magnesium 1.8 (1.8-2.4) mg/dL Total Bilirubin 0.3 (0.2-1.0) mg/dL AST 14 L (15-37) U/L ALT 54 (16-63) U/L Alkaline Phosphatase 109 (46-116) U/L Troponin I < 0.017 (0.000-0.056) ng/mL Total Protein 8.1 (6.4-8.2) g/dL Albumin 3.4 (3.4-5.0) g/dL Globulin 4.7 Albumin/Globulin Ratio 0.7 Ethyl Alcohol 71 (0) mg/dL Medications Discontinued Medications Generic Name Dose Route Start Last Admin Trade Name Leroyq PRN Reason Stop Dose Admin Multivitamins/Minerals 10 ml/ 1,011.2 mls @ 999 mls/hr 08/11/20 17:59 08/11/20 18:10 Thiamine HCl 100 mg/ Folic IV 08/11/20 18:59 999 mls/hr Acid 1 mg/ Lactated Ringer's .BOLUS ONE Administration Lorazepam 0.5 mg 08/11/20 18:44 08/11/20 18:56 Lorazepam 0.5 Mg Tab PO 08/11/20 18:45 0.5 mg ONETIME ONE Administration Re-Assessment/Re-Exam: Banana Bag initiated. Patient states he immediately began drinking following discharge from ED four days prior. He states he is under stress and is concerned about experiencing that stress/anxiety so he self-medicates with alcohol. CBC unremarkable for acute processes; no evidence of infection or anemia. CMP unremarkable, electrolytes, kidney function, and liver function appropriate. Troponin WNL; patient denies chest pain. Lactic acid slightly elevated at 2.3; likely related to acute alcohol intoxication. ETOH 71. Reviewed findings of examination and lab work with patient. Discussed importance of refraining from drinking alcohol in excess and appropriately managing feelings of anxiety via counseling and control medications. Will administer one dose of Ativan here in the ED, but again reviewed that a prescription for anxiety abortive therapy will not be given, as per visit four days prior. Patient verbalized understanding and agreement with the plan of care. Departure - Departure Time of Disposition: 18:46 Disposition: Home, Self-Care 01 Condition: Good Clinical Impression: Alcohol abuse, Anxiety Alcohol withdrawal syndrome Qualifiers: Complication of substance-induced condition: uncomplicated Qualified Code(s): F10.230 - Alcohol dependence with withdrawal, uncomplicated - Discharge Information *PRESCRIPTION DRUG MONITORING PROGRAM REVIEWED*: Not Applicable *COPY OF PRESCRIPTION DRUG MONITORING REPORT IN PATIENT GIOVANNY: Not Applicable Referrals: PCP,None [Primary Care Provider] - Forms: ED Department Discharge Additional Instructions: 1.) Follow up with your primary care provider in 1-2 days regarding today's visit, including need to control therapy for anxiety. 2.) Drink plenty of water to stay hydrated while you recover from your acute alcohol intoxication. 3.) Eat a bland diet while you are experiencing withdrawal; avoid spicy, greasy, high-fat foods. 4.) Refrain from drinking alcohol. Sepsis Event Note (ED) - Evaluation Sepsis Screening Result: No Definite Risk
[2020-08-11] MEDS ORDERED: MVI, Adult with Vitamin K 10 ML, Thiamine 100 MG, Folic Acid 1 MG in Lactated Ringers 1... IV ONE ×4 (17:59)
[2020-08-11 18:20] LABS: ANION GAP 15.6 mEq/L (7-13); CHLORIDE,CL 104 mmol/L (98-107); SODIUM,NA 144 mmol/L (136-145)
[2020-08-11] MEDS ORDERED: LORazepam 0.5 MG Tab PO ONE (18:44)
== END 2020-08-11 18:58 | disposition home or self-care (01) ==
LOC: DL.ED 17:03
DX: F10.230 Alcohol dependence with withdrawal, uncomplicated (principal); F41.9 Anxiety disorder, unspecified; I10 Essential (primary) hypertension; E66.9 Obesity, unspecified; Z68.43 Body mass index [BMI] 50.0-59.9, adult; Y90.3 Blood alcohol level of 60-79 mg/100 ml
CPT/HCPCS: 36415; 80053; 80307; 83605; 83735; 84484; 85025; 96365; 99283; 99284; A9270; J3411; J7120; J3490

== ENCOUNTER 2020-08-24 08:02 | Emergency (ER) | payer MEDICAID ==
[2020-08-24] MEDS ORDERED: chlordiazePOXIDE 25 MG Cap PO ONE (08:03)
--- NOTE | 2020-08-24 08:11 | EDM.PDOCBH ---
ED HPI GENERAL MEDICAL PROBLEM - General Chief Complaint: Drug or Alcohol Abuse Stated Complaint: ALCOHOL WITHDRAWAL Time Seen by Provider: 08/24/20 08:09 Source of Information: Reports: Patient, Old Records, RN, RN Notes Reviewed History Limitations: Reports: No Limitations - History of Present Illness INITIAL COMMENTS - FREE TEXT/NARRATIVE: Pt with c/o alcohol withdrawals and severe anxiety. Pt states he last drank alcohol about 8 to 12 hours ago and resolved to sober up so he can go to behavioral health this week for help. He has been reluctant to take medication for anxiety, but admits that he reverts to alcohol abuse as a coping mechanism. He feels very guilty because he has an 8yr old daughter who he feels he is cheating out of many family experiences because he is too anxious to take her out due to fear of having a panic attack in public. Recently friends of his had an informal "intervention" because another friend his age had of alcoholism. Pt states that he had a several month period of sobriety earlier this year, but has now been drinking for a few weeks. He denies vomiting, chest pain, fever, or seizures. Admits to nausea and epigastric abdominal pain. Onset: Gradual Duration: Constant, Getting Worse Location: Reports: Generalized Quality: Reports: Same as Previous Episode Severity: Severe Improves with: Reports: None Worsens with: Reports: None Associated Symptoms: Reports: No Other Symptoms - Related Data Allergies Allergy/AdvReac Type Severity Reaction Status Date / Time No Known Allergies Allergy Verified 08/24/20 08:13 Home Meds: Home Meds . [No Known Home Meds] 01/11/20 [History] Past Medical History - Past Health History Medical/Surgical History: Denies Medical/Surgical History HEENT History: Reports: Impaired Vision Cardiovascular History: Reports: Hypertension Respiratory History: Reports: None Gastrointestinal History: Reports: None Genitourinary History: Reports: None Musculoskeletal History: Reports: Gout Neurological History: Reports: None Psychiatric History: Reports: Addiction, Anxiety, Panic Attack Endocrine/Metabolic History: Reports: Obesity/BMI 30+ Hematologic History: Reports: None Immunologic History: Reports: None Oncologic (Cancer) History: Reports: None Dermatologic History: Reports: Other (See Below) Other Dermatologic History: severe acne - Infectious Disease History Infectious Disease History: Reports: Chicken Pox - Past Surgical History Head Surgeries/Procedures: Reports: None HEENT Surgical History: Reports: Tonsillectomy Cardiovascular Surgical History: Reports: None Respiratory Surgical History: Reports: None GI Surgical History: Reports: None Male Surgical History: Reports: None Endocrine Surgical History: Reports: None Neurological Surgical History: Reports: None Musculoskeletal Surgical History: Reports: None Social & Family History - Family History Family Medical History: No Pertinent Family History - Caffeine Use Caffeine Use: Reports: None - Alcohol Use Alcohol Use History: Yes Alcohol Use Frequency: Daily (Heavy chronic alcohol abuse) - Living Situation & Occupation Living situation: Reports: Single, with Family Occupation: Unemployed ED ROS GENERAL - Review of Systems Review Of Systems: Comprehensive ROS is negative, except as noted in HPI. ED EXAM, BEHAVIORAL HEALTH - Physical Exam Exam: See Below Exam Limited By: No Limitations General Appearance: Alert, No Apparent Distress, Anxious, Obese Eye Exam: Bilateral Eye: EOMI, Normal Inspection, PERRL Nose: Normal Inspection, Normal Mucosa, No Blood Throat/Mouth: Normal Lips, Normal Voice, No Airway Compromise, Other (Dry oral membranes) Head: Atraumatic, Normocephalic Neck: Normal Inspection, Supple, Non-Tender, Full Range of Motion Respiratory/Chest: No Respiratory Distress, Lungs Clear, Normal Breath Sounds, No Accessory Muscle Use, Chest Non-Tender Cardiovascular: Regular Rate, Rhythm, No Edema, Tachycardia GI/Abdominal: Normal Bowel Sounds, Soft, No Distention, No Abnormal Bruit, Tender (Epigastric), Other (Obese abdomen). No: Guarding, Rigid, Rebound Back Exam: Normal Inspection Extremities: Normal Inspection, Normal Range of Motion, Non-Tender, Normal C apillary Refill, No Pedal Edema Neurological: Alert, CN II-XII Intact, Normal Cognition, Normal Gait, No Motor/Sensory Deficits, Oriented x 3, Tremor Psychiatric: Depressed Mood, Flat Affect, Other (Anxious). No: Homicidal Thoughts, Suicidal Plan, Suicidal Thoughts, Auditory Hallucinations, Visual Hallucinations, Paranoid Thoughts Skin Exam: Warm, Dry, Intact, Normal color, No rash. No: Ecchymosis, Jaundice, Petechiae COURSE, BEHAVIORAL HEALTH COMP - Course Vital Signs: Last Vital Signs Temp 97.0 F 08/24/20 08:11 Pulse 102 H 08/24/20 08:11 Resp 16 08/24/20 08:11 BP 162/110 H 08/24/20 08:11 Pulse Ox 95 08/24/20 08:11 Orders, Labs, Meds: Active Orders 24 hr Category Date Time Status Peripheral IV Care [RC] . DIRECTED Care 08/24/20 08:12 Active Sodium Chloride 0.9% [Saline Flush] Med 08/24/20 08:12 Active 10 ml FLUSH ASDIRECTED PRN Peripheral IV Insertion Adult [OM.PC] Stat Oth 08/24/20 08:11 Ordered Medication Orders Sodium Chloride (Sodium Chloride 0.9% 10 Ml Syringe) 10 ml FLUSH ASDIRECTED PRN PRN Reason: Keep Vein Open Last Admin: 08/24/20 08:38 Dose: 10 ml Documented by: JUANITA Laboratory Tests 08/24/20 08/24/20 08/24/20 Range/Units 08:14 08:14 08:14 WBC 5.9 (5.0-10.0) 10^3/uL RBC 5.60 (4.6-6.2) 10^6/uL Hgb 15.9 (14.0-18.0) g/dL Hct 48.1 (40.0-54.0) % MCV 85.9 (80-100) fL MCH 28.4 (27.0-34.0) pg MCHC 33.1 (33.0-35.0) g/dL Plt Count 306 (150-450) 10^3/uL Neut % (Auto) 49.3 (42.2-75.2) % Lymph % (Auto) 31.5 (20.5-50.1) % [place] % (Auto) 12.2 H (2-8) % Eos % (Auto) 6.3 H (1.0-3.0) % Baso % (Auto) 0.7 (0.0-1.0) % PT 9.7 (9.0-12.0) SEC INR 1.0 (0.9-1.2) APTT 27.0 (22.0-34.0) SEC Sodium 145 (136-145) mmol/L Potassium 3.9 (3.5-5.1) mmol/L Chloride 105 (98-107) mmol/L Carbon Dioxide 26 (21-32) mmol/L Anion Gap 17.9 H (7-13) mEq/L BUN 7 (7-18) mg/dL Creatinine 0.79 (0.70-1.30) mg/dL Est Cr Clr Drug Dosing 155.92 mL/min Estimated GFR (MDRD) > 60 BUN/Creatinine Ratio 8.9 (No establ ref range) Glucose 107 H (74-99) mg/dL Calcium 8.2 L (8.5-10.1) mg/dL Magnesium 2.2 (1.8-2.4) mg/dL Total Bilirubin 0.4 (0.2-1.0) mg/dL AST 20 (15-37) U/L ALT 55 (16-63) U/L Alkaline Phosphatase 92 (46-116) U/L Total Protein 8.2 (6.4-8.2) g/dL Albumin 3.6 (3.4-5.0) g/dL Globulin 4.6 Albumin/Globulin Ratio 0.8 Amylase 47 (25-115) U/L Lipase 224 (73-393) U/L Urine Color (YELLOW) Urine Appearance (CLEAR) Urine pH (5.0-9.0) Ur Specific [place] (1.005-1.030) Urine Protein (NEGATIVE) Urine Glucose (UA) (NEGATIVE) Urine Ketones (NEGATIVE) Urine Occult Blood (NEGATIVE) Urine Nitrite (NEGATIVE) Urine Bilirubin (NEGATIVE) Urine Urobilinogen (0.2-1.0) mg/dL Ur Leukocyte Esterase (NEGATIVE) Urine Opiates Screen (NEGATIVE) Ur Oxycodone Screen (NEGATIVE) Urine Methadone Screen (NEGATIVE) Ur Barbiturates Screen (NEGATIVE) U Tricyclic Antidepress (NEGATIVE) Ur Phencyclidine Scrn (NEGATIVE) Ur Amphetamine Screen (NEGATIVE) U Methamphetamines Scrn (NEGATIVE) Urine MDMA Screen (NEGATIVE) U Benzodiazepines Scrn (NEGATIVE) Urine Cocaine Screen (NEGATIVE) U Marijuana (THC) Screen (NEGATIVE) Ethyl Alcohol 186 (0) mg/dL 08/24/20 08/24/20 Range/Units 09:24 09:24 WBC (5.0-10.0) 10^3/uL RBC (4.6-6.2) 10^6/uL Hgb (14.0-18.0) g/dL Hct (40.0-54.0) % MCV (80-100) fL MCH (27.0-34.0) pg MCHC (33.0-35.0) g/dL Plt Count (150-450) 10^3/uL Neut % (Auto) (42.2-75.2) % Lymph % (Auto) (20.5-50.1) % [place] % (Auto) (2-8) % Eos % (Auto) (1.0-3.0) % Baso % (Auto) (0.0-1.0) % PT (9.0-12.0) SEC INR (0.9-1.2) APTT (22.0-34.0) SEC Sodium (136-145) mmol/L Potassium (3.5-5.1) mmol/L Chloride (98-107) mmol/L Carbon Dioxide (21-32) mmol/L Anion Gap (7-13) mEq/L BUN (7-18) mg/dL Creatinine (0.70-1.30) mg/dL Est Cr Clr Drug Dosing mL/min Estimated GFR (MDRD) BUN/Creatinine Ratio (No establ ref range) Glucose (74-99) mg/dL Calcium (8.5-10.1) mg/dL Magnesium (1.8-2.4) mg/dL Total Bilirubin (0.2-1.0) mg/dL AST (15-37) U/L ALT (16-63) U/L Alkaline Phosphatase (46-116) U/L Total Protein (6.4-8.2) g/dL Albumin (3.4-5.0) g/dL Globulin Albumin/Globulin Ratio Amylase (25-115) U/L Lipase (73-393) U/L Urine Color Yellow (YELLOW) Urine Appearance Clear (CLEAR) Urine pH 6.5 (5.0-9.0) Ur Specific [place] 1.020 (1.005-1.030) Urine Protein Negative (NEGATIVE) Urine Glucose (UA) Negative (NEGATIVE) Urine Ketones Negative (NEGATIVE) Urine Occult Blood Negative (NEGATIVE) Urine Nitrite Negative (NEGATIVE) Urine Bilirubin Negative (NEGATIVE) Urine Urobilinogen 0.2 (0.2-1.0) mg/dL Ur Leukocyte Esterase Negative (NEGATIVE) Urine Opiates Screen Negative (NEGATIVE) Ur Oxycodone Screen Negative (NEGATIVE) Urine Methadone Screen Negative (NEGATIVE) Ur Barbiturates Screen Negative (NEGATIVE) U Tricyclic Antidepress Negative (NEGATIVE) Ur Phencyclidine Scrn Negative (NEGATIVE) Ur Amphetamine Screen Negative (NEGATIVE) U Methamphetamines Scrn Negative (NEGATIVE) Urine MDMA Screen Negative (NEGATIVE) U Benzodiazepines Scrn Negative (NEGATIVE) Urine Cocaine Screen Negative (NEGATIVE) U Marijuana (THC) Screen Positive H (NEGATIVE) Ethyl Alcohol (0) mg/dL Medications Generic Name Dose Route Start Last Admin Trade Name Freq PRN Reason Stop Dose Admin Sodium Chloride 10 ml 08/24/20 08:12 08/24/20 08:38 Sodium Chloride 0.9% 10 Ml Syringe FLUSH 10 ml ASDIRECTED PRN Administration Keep Vein Open Discontinued Medications Generic Name Dose Route Start Last Admin Trade Name Freq PRN Reason Stop Dose Admin Folic Acid Confirm 08/24/20 08:29 08/24/20 08:40 Folic Acid 50 Mg/10 Ml Mdv Administered 08/24/20 08:30 Not Given Dose 50 mg .ROUTE .STK-MED ONE Multivitamins/Minerals 10 ml/ 1,011.2 mls @ 999 mls/hr 08/24/20 08:12 08/24/20 08:38 Thiamine HCl 100 mg/ Folic IV 08/24/20 09:12 999 mls/hr Acid 1 mg/ Lactated Ringer's .BOLUS ONE Administration Lorazepam 2 mg 08/24/20 08:12 08/24/20 08:38 Lorazepam 2 Mg/Ml Sdv IVPUSH 08/24/20 08:13 2 mg ONETIME ONE Administration Multivitamins/Minerals Confirm 08/24/20 08:26 08/24/20 08:40 Mvi, Adult With Vitamin K 10 Ml Sdv Administered 08/24/20 08:27 Not Given Dose 10 ml .ROUTE .STK-MED ONE Ondansetron HCl 4 mg 08/24/20 08:12 08/24/20 08:38 Ondansetron 4 Mg/2 Ml Sdv IV 08/24/20 08:13 4 mg ONETIME ONE Administration Thiamine HCl Confirm 08/24/20 08:29 08/24/20 08:40 Thiamine 200 Mg/2 Ml Mdv Administered 08/24/20 08:30 Not Given Dose 200 mg .ROUTE .STK-MED ONE Medical Clearance: 08/24/20 09:40 Medically clear. Discharge vs Psych Eval/Treatment:: 08/24/20 09:40 Discussed with pt the option of inpatient detox vs going through withdrawal at home with medication. Pt states he has successfully gone through withdrawals at home in the past both with and without medication. He plans to go to [facility] Tuesday for ongoing help. Departure - Departure Time of Disposition: 09:41 Disposition: Home, Self-Care 01 Condition: Fair Clinical Impression: Severe anxiety with panic Alcohol withdrawal syndrome Qualifiers: Complication of substance-induced condition: uncomplicated Qualified Code(s): F10.230 - Alcohol dependence with withdrawal, uncomplicated - Discharge Information *PRESCRIPTION DRUG MONITORING PROGRAM REVIEWED*: Not Applicable *COPY OF PRESCRIPTION DRUG MONITORING REPORT IN PATIENT GIOVANNY: Not Applicable Instructions: Alcohol Use Disorder, Alcohol Withdrawal Syndrome, Managing Anxiety, Adult Forms: ED Department Discharge Additional Instructions: Rx: Librium 25mg Abstain from alcohol consumption. Follow up August 26 at [facility]. Return to ER if worse at any time. Sepsis Event Note (ED) - Focused Exam Vital Signs: Vital Signs Temp Pulse Resp BP Pulse Ox 08/24/20 08:11 97.0 F 102 H 16 162/110 H 95 - My Orders Last 24 Hours: My Active Orders 08/24/20 08:11 Peripheral IV Insertion Adult [OM.PC] Stat 08/24/20 08:12 Peripheral IV Care [RC] . DIRECTED Sodium Chloride 0.9% [Saline Flush] 10 ml FLUSH ASDIRECTED PRN - Assessment/Plan Last 24 Hours: My Active Orders 08/24/20 08:11 Peripheral IV Insertion Adult [OM.PC] Stat 08/24/20 08:12 Peripheral IV Care [RC] . DIRECTED Sodium Chloride 0.9% [Saline Flush] 10 ml FLUSH ASDIRECTED PRN
[2020-08-24 08:12] VITALS: BP 162/110; PULSE 102
[2020-08-24] MEDS ORDERED: LORazepam 2 MG/ML SDV IVPUSH ONE (08:12)
[2020-08-24] MEDS ORDERED: Sodium Chloride 0.9% 10 ML Syringe FLUSH PRN (08:12)
[2020-08-24] MEDS ORDERED: Ondansetron 4 MG/2 ML SDV IV ONE (08:12)
[2020-08-24] MEDS ORDERED: MVI, Adult with Vitamin K 10 ML, Thiamine 100 MG, Folic Acid 1 MG in Lactated Ringers 1... IV ONE ×4 (08:12)
[2020-08-24] MEDS ORDERED: MVI, Adult with Vitamin K 10 ML SDV ONE (08:26)
[2020-08-24] MEDS ORDERED: Folic Acid 50 MG/10 ML MDV ONE (08:29)
[2020-08-24] MEDS ORDERED: Thiamine 200 MG/2 ML MDV ONE (08:29)
[2020-08-24 08:38] LABS: ANION GAP 17.9 mEq/L (7-13); CHLORIDE,CL 105 mmol/L (98-107); SODIUM,NA 145 mmol/L (136-145)
[2020-08-24] MEDS ORDERED: chlordiazePOXIDE 25 MG Cap ONE (09:49)
== END 2020-08-24 09:55 | disposition home or self-care (01) ==
LOC: DL.ED 08:02
DX: F10.230 Alcohol dependence with withdrawal, uncomplicated (principal); F41.0 Panic disorder [episodic paroxysmal anxiety]; I10 Essential (primary) hypertension; E66.9 Obesity, unspecified; Z68.43 Body mass index [BMI] 50.0-59.9, adult; Y90.6 Blood alcohol level of 120-199 mg/100 ml
CPT/HCPCS: 36415; 80053; 80305; 80307; 81003; 82150; 83690; 83735; 85025; 85610; 85730; 96365; 96375; 99284; A9270; J2060; J2405; J3411; J7120; J3490

== ENCOUNTER 2020-08-24 23:12 | Emergency (ER) | payer MEDICAID ==
[2020-08-25 00:11] VITALS: BP 144/91; PULSE 103
[2020-08-25 01:08] LABS: ANION GAP 12.8 mEq/L (7-13); CHLORIDE,CL 104 mmol/L (98-107); SODIUM,NA 141 mmol/L (136-145)
--- NOTE | 2020-08-25 01:17 | EDM.PDOCBH ---
ED HPI GENERAL MEDICAL PROBLEM - General Chief Complaint: Drug or Alcohol Abuse Stated Complaint: ALCOHOL WITHDRAWL Time Seen by Provider: 08/25/20 00:50 Source of Information: Reports: Patient, Old Records, RN, RN Notes Reviewed History Limitations: Reports: No Limitations - History of Present Illness INITIAL COMMENTS - FREE TEXT/NARRATIVE: Patient presents to the ED via personal vehicle with complaints of anxiety related to alcohol withdrawal. The patient states his last drink of alcohol was last night, 08/23/20. He attests to an evaluation in this ED earlier today and was subsequently treated with 1L Banana Bag, Zofran 4mg IVP, and Ativan 2mg IVP as well as an at home prescription for Librium. The patient states he took a dose of Librium at approximately 2200 this evening but has not experienced alleviation of anxiety. He verbalizes he is scared to withdraw from alcohol as he does not want to have a seizure; he denies history of seizure with detox or any underlying seizure disorder. The patient states he does not want to go to an inpatient detox center but would rather "...just get some Ativan and go home." The patient denies fever, shaking chills, chest pain, shortness of breath, palpitations, dyspepsia, nausea, vomiting, or loose stools. He denies recreational drug use. Abdomen Pain Score (Numeric/FACES): 7 - Related Data Allergies Allergy/AdvReac Type Severity Reaction Status Date / Time No Known Allergies Allergy Verified 08/25/20 03:15 Home Meds: Home Meds chlordiazePOXIDE [Librium] 25 mg PO TID 08/25/20 [History] Past Medical History - Past Health History Medical/Surgical History: Denies Medical/Surgical History HEENT History: Reports: Impaired Vision Cardiovascular History: Reports: Hypertension Respiratory History: Reports: None Gastrointestinal History: Reports: None Genitourinary History: Reports: None Musculoskeletal History: Reports: Gout Neurological History: Reports: None Psychiatric History: Reports: Addiction, Anxiety, Panic Attack Endocrine/Metabolic History: Reports: Obesity/BMI 30+ Hematologic History: Reports: None Immunologic History: Reports: None Oncologic (Cancer) History: Reports: None Dermatologic History: Reports: Other (See Below) Other Dermatologic History: severe acne - Infectious Disease History Infectious Disease History: Reports: Chicken Pox - Past Surgical History Head Surgeries/Procedures: Reports: None HEENT Surgical History: Reports: Tonsillectomy Cardiovascular Surgical History: Reports: None Respiratory Surgical History: Reports: None GI Surgical History: Reports: None Male Surgical History: Reports: None Endocrine Surgical History: Reports: None Neurological Surgical History: Reports: None Musculoskeletal Surgical History: Reports: None Social & Family History - Family History Family Medical History: No Pertinent Family History - Tobacco Use Tobacco Use Status *Q: Never Tobacco User Second Hand Smoke Exposure: No - Caffeine Use Caffeine Use: Reports: None - Recreational Drug Use Recreational Drug Use: Yes Drug Use in Last 12 Months: Yes Recreational Drug Type: Reports: Marijuana/Hashish - Living Situation & Occupation Living situation: Reports: Single, with Family Occupation: Unemployed ED ROS GENERAL - Review of Systems Review Of Systems: Comprehensive ROS is negative, except as noted in HPI. ED EXAM, BEHAVIORAL HEALTH - Physical Exam Exam: See Below Exam Limited By: No Limitations General Appearance: Alert, No Apparent Distress, Obese Eye Exam: Bilateral Eye: EOMI, Normal Inspection, PERRL (4mm) Throat/Mouth: Normal Inspection, Normal Voice, No Airway Compromise Head: Atraumatic, Normocephalic Neck: Normal Inspection, Supple, Non-Tender, Full Range of Motion Respiratory/Chest: No Respiratory Distress, Lungs Clear, Normal Breath Sounds, No Accessory Muscle Use, Chest Non-Tender Cardiovascular: Normal Peripheral Pulses, Regular Rate, Rhythm, No Edema, No Gallop, No JVD, No Murmur, No Rub, Tachycardia GI/Abdominal: Soft, Non-Tender, No Distention, No Mass, Pelvis Stable, Abnormal Bowel Sounds (Hypoactive bowel sounds) (Male) Exam: Deferred Rectal (Males) Exam: Deferred Back Exam: Normal Inspection, Full Range of Motion Extremities: Normal Inspection, Normal Range of Motion, Non-Tender, Normal Capillary Refill, No Pedal Edema Neurological: Alert, CN II-XII Intact, Normal Cognition, Normal Gait, Normal Reflexes, No Motor/Sensory Deficits, Oriented x 3, Opens Eyes to Commands, Withdraws to Pain Psychiatric: Alert, Normal Cognition, Oriented, Flat Affect, Poor Eye Contact Skin Exam: Warm, Dry, Intact, Normal color, No rash COURSE, BEHAVIORAL HEALTH COMP - Course Vital Signs: Last Vital Signs Temp 97.9 F 08/25/20 00:04 Pulse 103 H 08/25/20 00:04 Resp 18 08/25/20 00:04 BP 144/91 H 08/25/20 00:04 Pulse Ox 94 L 08/25/20 00:04 Orders, Labs, Meds: Laboratory Tests 08/25/20 08/25/20 08/25/20 Range/Units 00:15 00:15 00:45 WBC 9.6 (5.0-10.0) 10^3/uL RBC 5.42 (4.6-6.2) 10^6/uL Hgb 15.2 (14.0-18.0) g/dL Hct 47.6 (40.0-54.0) % MCV 87.8 (80-100) fL MCH 28.0 (27.0-34.0) pg MCHC 31.9 L (33.0-35.0) g/dL Plt Count 269 (150-450) 10^3/uL Neut % (Auto) 71.7 (42.2-75.2) % Lymph % (Auto) 15.5 L (20.5-50.1) % Crawford % (Auto) 9.0 H (2-8) % Eos % (Auto) 3.4 H (1.0-3.0) % Baso % (Auto) 0.4 (0.0-1.0) % Sodium (136-145) mmol/L Potassium (3.5-5.1) mmol/L Chloride (98-107) mmol/L Carbon Dioxide (21-32) mmol/L Anion Gap (7-13) mEq/L BUN (7-18) mg/dL Creatinine (0.70-1.30) mg/dL Est Cr Clr Drug Dosing mL/min Estimated GFR (MDRD) BUN/Creatinine Ratio (No establ ref range) Glucose (74-99) mg/dL Lactic Acid (0.4-2.0) mmol/L Calcium (8.5-10.1) mg/dL Total Bilirubin (0.2-1.0) mg/dL AST (15-37) U/L ALT (16-63) U/L Alkaline Phosphatase (46-116) U/L Total Protein (6.4-8.2) g/dL Albumin (3.4-5.0) g/dL Globulin Albumin/Globulin Ratio Urine Color Yellow (YELLOW) Urine Appearance Clear (CLEAR) Urine pH 7.0 (5.0-9.0) Ur Specific [place] 1.020 (1.005-1.030) Urine Protein 30 H (NEGATIVE) Urine Glucose (UA) Negative (NEGATIVE) Urine Ketones Negative (NEGATIVE) Urine Occult Blood Trace-intact H (NEGATIVE) Urine Nitrite Negative (NEGATIVE) Urine Bilirubin Negative (NEGATIVE) Urine Urobilinogen 2.0 H (0.2-1.0) mg/dL Ur Leukocyte Esterase Negative (NEGATIVE) Urine RBC 0-5 /HPF Urine WBC 30-40 H (0-5/HPF) /HPF Ur Epithelial Cells Many H (NOT SEEN) /HPF Urine Bacteria Many H (0-FEW/HPF) /HPF Urine Mucus Moderate H (NOT SEEN) /LPF Urine Opiates Screen Negative (NEGATIVE) Ur Oxycodone Screen Negative (NEGATIVE) Urine Methadone Screen Negative (NEGATIVE) Ur Barbiturates Screen Negative (NEGATIVE) U Tricyclic Antidepress Negative (NEGATIVE) Ur Phencyclidine Scrn Negative (NEGATIVE) Ur Amphetamine Screen Negative (NEGATIVE) U Methamphetamines Scrn Negative (NEGATIVE) Urine MDMA Screen Negative (NEGATIVE) U Benzodiazepines Scrn Positive H (NEGATIVE) Urine Cocaine Screen Negative (NEGATIVE) U Marijuana (THC) Screen Positive H (NEGATIVE) Ethyl Alcohol (0) mg/dL 08/25/20 08/25/20 Range/Units 00:45 00:45 WBC (5.0-10.0) 10^3/uL RBC (4.6-6.2) 10^6/uL Hgb (14.0-18.0) g/dL Hct (40.0-54.0) % MCV (80-100) fL MCH (27.0-34.0) pg MCHC (33.0-35.0) g/dL Plt Count (150-450) 10^3/uL Neut % (Auto) (42.2-75.2) % Lymph % (Auto) (20.5-50.1) % Crawford % (Auto) (2-8) % Eos % (Auto) (1.0-3.0) % Baso % (Auto) (0.0-1.0) % Sodium 141 (136-145) mmol/L Potassium 3.8 (3.5-5.1) mmol/L Chloride 104 (98-107) mmol/L Carbon Dioxide 28 (21-32) mmol/L Anion Gap 12.8 (7-13) mEq/L BUN 10 (7-18) mg/dL Creatinine 0.87 (0.70-1.30) mg/dL Est Cr Clr Drug Dosing 145.66 mL/min Estimated GFR (MDRD) > 60 BUN/Creatinine Ratio 11.5 (No establ ref range) Glucose 100 H (74-99) mg/dL Lactic Acid 1.0 (0.4-2.0) mmol/L Calcium 8.5 (8.5-10.1) mg/dL Total Bilirubin 0.7 (0.2-1.0) mg/dL AST 15 (15-37) U/L ALT 46 (16-63) U/L Alkaline Phosphatase 90 (46-116) U/L Total Protein 7.6 (6.4-8.2) g/dL Albumin 3.3 L (3.4-5.0) g/dL Globulin 4.3 Albumin/Globulin Ratio 0.77 Urine Color (YELLOW) Urine Appearance (CLEAR) Urine pH (5.0-9.0) Ur Specific [place] (1.005-1.030) Urine Protein (NEGATIVE) Urine Glucose (UA) (NEGATIVE) Urine Ketones (NEGATIVE) Urine Occult Blood (NEGATIVE) Urine Nitrite (NEGATIVE) Urine Bilirubin (NEGATIVE) Urine Urobilinogen (0.2-1.0) mg/dL Ur Leukocyte Esterase (NEGATIVE) Urine RBC /HPF Urine WBC (0-5/HPF) /HPF Ur Epithelial Cells (NOT SEEN) /HPF Urine Bacteria (0-FEW/HPF) /HPF Urine Mucus (NOT SEEN) /LPF Urine Opiates Screen (NEGATIVE) Ur Oxycodone Screen (NEGATIVE) Urine Methadone Screen (NEGATIVE) Ur Barbiturates Screen (NEGATIVE) U Tricyclic Antidepress (NEGATIVE) Ur Phencyclidine Scrn (NEGATIVE) Ur Amphetamine Screen (NEGATIVE) U Methamphetamines Scrn (NEGATIVE) Urine MDMA Screen (NEGATIVE) U Benzodiazepines Scrn (NEGATIVE) Urine Cocaine Screen (NEGATIVE) U Marijuana (THC) Screen (NEGATIVE) Ethyl Alcohol < 3 (0) mg/dL Re-Assessment/Re-Exam: CBC unremarkable for acute processes; no evidence of infection or anemia. CMP unremarkable; electrolytes appropriate, liver and kidney function normal. No lactic acid elevation. UA dirty with epithelial cells. ETOH negative; Tox screen positive for benzodiazepines (expected) and THC. Findings of examination and lab work reviewed with patient. Discussed assistance with detox via [facility] as patient has prescription for long-acting benzo. Patient declined wanting assistance for detox. Supportive cares, as well as red flag signs and symptoms which would warrant reevaluation reviewed. Patient verbalized understanding and agreement with the plan of care. Departure - Departure Time of Disposition: 01:42 Disposition: Home, Self-Care 01 Condition: Good Clinical Impression: Alcohol abuse Alcohol withdrawal syndrome Qualifiers: Complication of substance-induced condition: uncomplicated Qualified Code(s): F10.230 - Alcohol dependence with withdrawal, uncomplicated - Discharge Information *PRESCRIPTION DRUG MONITORING PROGRAM REVIEWED*: Not Applicable *COPY OF PRESCRIPTION DRUG MONITORING REPORT IN PATIENT GIOVANNY: Not Applicable Instructions: Alcohol Abuse and Dependence Information, Adult Referrals: PCP,None [Ordering Only Provider] - Forms: ED Department Discharge Additional Instructions: 1.) Continue on previously prescribed Librium for alleviation of alcohol withdrawal symptoms. 2.) Keep previously scheduled appointment with [facility] for assistance with alcohol dependence. 3.) Do not drink alcohol. 4.) Drink plenty of water to stay hydrated. 5.) Eat a bland diet while recovering from your acute alcohol intoxication; avoid spicy, greasy. high-fat foods. Sepsis Event Note (ED) - Evaluation Sepsis Screening Result: No Definite Risk
== END 2020-08-25 01:52 | disposition home or self-care (01) ==
LOC: DL.ED 23:12
DX: F10.230 Alcohol dependence with withdrawal, uncomplicated (principal); I10 Essential (primary) hypertension; E66.9 Obesity, unspecified; Z68.43 Body mass index [BMI] 50.0-59.9, adult; Y90.0 Blood alcohol level of less than 20 mg/100 ml; Z79.899 Other long term (current) drug therapy
CPT/HCPCS: 36415; 80053; 80305-QW; 80307; 81001; 83605; 85025; 99283; 99284

== ENCOUNTER 2020-08-25 03:09 | Emergency (ER) | payer MEDICAID ==
--- NOTE | 2020-08-25 03:37 | EDM.PDOCBH ---
ED HPI GENERAL MEDICAL PROBLEM - General Chief Complaint: Drug or Alcohol Abuse Stated Complaint: DETOX Time Seen by Provider: 08/25/20 03:29 Source of Information: Reports: Patient, Old Records, RN History Limitations: Reports: No Limitations - History of Present Illness INITIAL COMMENTS - FREE TEXT/NARRATIVE: Patient presents to the ED via personal vehicle with complaints of anxiety and request for assistance with detox. The patient was discharged about one and a half hours ago from this ED for similar complaints with request to detox at home as he did not want inpatient assistance with detox; he now states he would like help. The patient states he does not live alone but he does not want to detox from alcohol in front of the people he lives with. He has not taken any doses of Librium since he left this facility. He continues to deny fever, shaking chills, chest pain, palpitations, shortness of breath, dyspepsia, nausea, vomiting, or loose stools. Abdomen Pain Score (Numeric/FACES): 7 - Related Data Allergies Allergy/AdvReac Type Severity Reaction Status Date / Time No Known Allergies Allergy Verified 08/25/20 03:15 Home Meds: Home Meds chlordiazePOXIDE [Librium] 25 mg PO TID 08/25/20 [History] Past Medical History - Past Health History Medical/Surgical History: Denies Medical/Surgical History HEENT History: Reports: Impaired Vision Cardiovascular History: Reports: Hypertension Respiratory History: Reports: None Gastrointestinal History: Reports: None Genitourinary History: Reports: None Musculoskeletal History: Reports: Gout Neurological History: Reports: None Psychiatric History: Reports: Addiction, Anxiety, Panic Attack Endocrine/Metabolic History: Reports: Obesity/BMI 30+ Hematologic History: Reports: None Immunologic History: Reports: None Oncologic (Cancer) History: Reports: None Dermatologic History: Reports: Other (See Below) Other Dermatologic History: severe acne - Infectious Disease History Infectious Disease History: Reports: Chicken Pox - Past Surgical History Head Surgeries/Procedures: Reports: None HEENT Surgical History: Reports: Tonsillectomy Cardiovascular Surgical History: Reports: None Respiratory Surgical History: Reports: None GI Surgical History: Reports: None Male Surgical History: Reports: None Endocrine Surgical History: Reports: None Neurological Surgical History: Reports: None Musculoskeletal Surgical History: Reports: None Social & Family History - Family History Family Medical History: No Pertinent Family History - Tobacco Use Tobacco Use Status *Q: Never Tobacco User Second Hand Smoke Exposure: No - Caffeine Use Caffeine Use: Reports: None - Alcohol Use Days Per Week of Alcohol Use: 7 Number of Drinks Per Day: 7 Total Drinks Per Week: 49 - Recreational Drug Use Recreational Drug Use: Yes Drug Use in Last 12 Months: Yes Recreational Drug Type: Reports: Marijuana/Hashish Recreational Drug Use Frequency: Binges - Living Situation & Occupation Living situation: Reports: Single, with Family Occupation: Unemployed ED ROS GENERAL - Review of Systems Review Of Systems: Comprehensive ROS is negative, except as noted in HPI. ED EXAM, BEHAVIORAL HEALTH - Physical Exam Exam: See Below Exam Limited By: No Limitations General Appearance: Alert, No Apparent Distress, Obese Eye Exam: Bilateral Eye: EOMI, Normal Inspection, PERRL (3mm) Ears: Normal External Exam, Normal Canal, Hearing Grossly Normal, Normal TMs Nose: Normal Inspection, Normal Mucosa, No Blood Throat/Mouth: Normal Lips, Normal Teeth, Normal Gums, Normal Voice, No Airway Compromise. No: Normal Oropharynx (Dry mucous membranes) Head: Atraumatic, Normocephalic Neck: Normal Inspection Respiratory/Chest: No Respiratory Distress, Lungs Clear, Normal Breath Sounds, No Accessory Muscle Use, Chest Non-Tender Cardiovascular: Normal Peripheral Pulses, Regular Rate, Rhythm, No Edema, No Gallop, No JVD, No Murmur, No Rub GI/Abdominal: Soft, Non-Tender, No Distention, No Abnormal Bruit, No Mass, Pelvis Stable, Abnormal Bowel Sounds (Hypoactive bowel sounds) (Male) Exam: Deferred Rectal (Males) Exam: Deferred Back Exam: Normal Inspection, Full Range of Motion. No: CVA Tenderness (L), CVA Tenderness (R) Extremities: Normal Inspection, Normal Range of Motion, Non-Tender, No Pedal Edema, Normal Capillary Refill Neurological: Alert, Normal Cognition, Normal Gait, Normal Reflexes, No Motor/Sensory Deficits, Oriented x 3, Opens Eyes to Commands, Withdraws to Pain. No: Tongue Deviation (L), Tongue Deviation (R), Abnormal Sensation, Abnormal Motor, Abn 2 Pt Discrimination Psychiatric: Alert, Depressed Mood, Flat Affect, Poor Eye Contact, Withdrawn. No: Restless, Tearful, Disoriented, Inattentive, Suicidal Plan, Suicidal Thoughts Skin Exam: Warm, Dry, Intact, Normal color, No rash. 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 Nivia states there is no bed availability at the [facility] at this time, but there will be availability at 0900 today. She requests the patient present to the CRU at that time for intake and assistance with detox. Will place patient in extended stay to monitor him during detox and provide mild rehydration; will avoid Ativan at this time as patient has taken Librium and should continue to do so during detox. Plan of care discussed with patient who verbalized understanding and agreement with plan. Departure - Departure Time of Disposition: 09:30 Disposition: DC/Tfer to Inpt Rehab Fac 62 Condition: Good Clinical Impression: Alcohol abuse, Anxiety Alcohol withdrawal syndrome Qualifiers: Complication of substance-induced condition: uncomplicated Qualified Code(s): F10.230 - Alcohol dependence with withdrawal, uncomplicated - Discharge Information *PRESCRIPTION DRUG MONITORING PROGRAM REVIEWED*: Not Applicable *COPY OF PRESCRIPTION DRUG MONITORING REPORT IN PATIENT GIVOANNY: Not Applicable Referrals: PCP,None [Ordering Only Provider] - Forms: ED Department Discharge Additional Instructions: 1.) Continue with previously prescribed Librium while experiencing symptoms of detox from alcohol. 2.) Follow the safety plan for detox, per [facility]. 3.) Drink plenty of water to stay hydrated. Sepsis Event Note (ED) - Evaluation Sepsis Screening Result: No Definite Risk
[2020-08-25] MEDS ORDERED: Lactated Ringers 1,000 ML IV SCH (03:45)
[2020-08-25 06:54] VITALS: BP 134/69; PULSE 67
== END 2020-08-25 09:30 ==
LOC: DL.ED 03:09
DX: F10.230 Alcohol dependence with withdrawal, uncomplicated (principal); F41.9 Anxiety disorder, unspecified; I10 Essential (primary) hypertension; E66.9 Obesity, unspecified; Z68.43 Body mass index [BMI] 50.0-59.9, adult
CPT/HCPCS: 99284; J7120

== ENCOUNTER 2020-08-25 21:08 | Emergency (ER) | payer MEDICAID | END 2020-08-26 01:59 | disposition left against medical advice (07) | LOC: DL.ED 21:08 | DX: Z53.21 Procedure and treatment not carried out due to patient leaving prior to being seen by health care provider (principal) ==

== ENCOUNTER 2020-10-25 05:08 | Emergency (ER) | payer MEDICAID ==
[2020-10-25 05:39] VITALS: BP 119/85; PULSE 80
== END 2020-10-25 06:25 | disposition left against medical advice (07) ==
LOC: DL.ED 05:08
DX: Z53.21 Procedure and treatment not carried out due to patient leaving prior to being seen by health care provider (principal)

== ENCOUNTER 2020-11-06 17:23 | Emergency (ER) | payer MEDICAID ==
[2020-11-06] MEDS ORDERED: Ondansetron 4 MG/2 ML SDV IVPUSH ONE (17:30)
[2020-11-06] MEDS ORDERED: MVI, Adult with Vitamin K 10 ML, Folic Acid 1 MG, Thiamine 100 MG in Lactated Ringers 1... IV ONE ×4 (17:30)
--- NOTE | 2020-11-06 17:37 | EDM.PDOC ---
<Ra Donnelly M - Last Filed: 11/06/20 18:51> ED HPI GENERAL MEDICAL PROBLEM - General Stated Complaint: [facility] Time Seen by Provider: 11/06/20 17:25 Source of Information: Reports: Patient History Limitations: Reports: No Limitations - History of Present Illness INITIAL COMMENTS - FREE TEXT/NARRATIVE: This 30 yo male patient was brought to the ED by [facility] due to alcohol withdrawals. The patient reports he has not had any alcohol since yesterday. The patient reports he has been drinking daily for a week. The patient reports, when he drinks, he does not have a limit to how much he drinks. The patient reports he was sober last week. The patient reports he has had increased anxiety due to the frequent alcohol use. Onset: Today Duration: Constant Location: Reports: Generalized Quality: Reports: Other Severity: Moderate Improves with: Reports: None Worsens with: Reports: None Context: Reports: Other Associated Symptoms: Reports: No Other Symptoms - Related Data Allergies Allergy/AdvReac Type Severity Reaction Status Date / Time No Known Allergies Allergy Verified 10/25/20 05:42 Home Meds: Home Meds . [No Known Home Meds] 10/25/20 [History] Past Medical History - Past Health History Medical/Surgical History: Denies Medical/Surgical History HEENT History: Reports: Impaired Vision Cardiovascular History: Reports: Hypertension Respiratory History: Reports: None Gastrointestinal History: Reports: None Genitourinary History: Reports: None Musculoskeletal History: Reports: Gout Neurological History: Reports: None Psychiatric History: Reports: Addiction, Anxiety, Panic Attack Endocrine/Metabolic History: Reports: Obesity/BMI 30+ Hematologic History: Reports: None Immunologic History: Reports: None Oncologic (Cancer) History: Reports: None Dermatologic History: Reports: Other (See Below) Other Dermatologic History: severe acne - Infectious Disease History Infectious Disease History: Reports: Chicken Pox - Past Surgical History Head Surgeries/Procedures: Reports: None HEENT Surgical History: Reports: Tonsillectomy Cardiovascular Surgical History: Reports: None Respiratory Surgical History: Reports: None GI Surgical History: Reports: None Male Surgical History: Reports: None Endocrine Surgical History: Reports: None Neurological Surgical History: Reports: None Musculoskeletal Surgical History: Reports: None Social & Family History - Family History Family Medical History: No Pertinent Family History - Caffeine Use Caffeine Use: Reports: Coffee, Energy Drinks, Soda - Living Situation & Occupation Living situation: Reports: Single, with Family Occupation: Unemployed ED ROS GENERAL - Review of Systems Review Of Systems: Comprehensive ROS is negative, except as noted in HPI. ED EXAM, GENERAL - Physical Exam Exam: See Below Exam Limited By: No Limitations General Appearance: Alert, WD/WN, Moderate Distress, Obese Eye Exam: Bilateral Eye: EOMI, Normal Inspection, PERRL Ears: Normal External Exam, Normal Canal, Hearing Grossly Normal, Normal TMs Nose: Normal Inspection, Normal Mucosa, No Blood Throat/Mouth: Normal Inspection, Normal Lips, Normal Teeth, Normal Gums, Normal Oropharynx, Normal Voice, No Airway Compromise Head: Atraumatic, Normocephalic Neck: Normal Inspection, Supple, Non-Tender, Full Range of Motion Respiratory/Chest: No Respiratory Distress, Lungs Clear, Normal Breath Sounds, No Accessory Muscle Use, Chest Non-Tender Cardiovascular: Normal Peripheral Pulses, Regular Rate, Rhythm, No Edema, No Gallop, No JVD, No Murmur, No Rub GI/Abdominal: Normal Bowel Sounds, Soft, Non-Tender, No Organomegaly, No Distention, No Abnormal Bruit, No Mass (Male) Exam: Deferred Rectal (Males) Exam: Deferred Back Exam: Normal Inspection, Full Range of Motion, NT Extremities: Normal Inspection, Normal Range of Motion, Non-Tender, Normal Capillary Refill, No Pedal Edema Neurological: Alert, Oriented, CN II-XII Intact, Normal Cognition, No Motor/Sensory Deficits Psychiatric: Depressed Mood, Flat Affect Skin Exam: Warm, Dry, Intact, Normal Color, No Rash Lymphatic: No Adenopathy Departure - Departure Disposition: Home, Self-Care 01 Clinical Impression: Alcohol abuse, Anxiety, Positive urine drug screen Alcohol withdrawal Qualifiers: Complication of substance-induced condition: uncomplicated Qualified Code(s): F10.230 - Alcohol dependence with withdrawal, uncomplicated - Discharge Information Instructions: Alcohol Abuse and Dependence Information, Adult Referrals: PCP,None [Primary Care Provider] - Forms: ED Department Discharge Additional Instructions: decrease or stop alcohol use get back into treatment don't use meth rest increase fluids avoid caffeine or energy drinks ativan 1mg one time at bedtime if needed for severe anxiety <Lashay Clemente - Last Filed: 11/06/20 22:49> Course - Vital Signs Last Recorded V/S: Last Vital Signs Temp 98.4 F 11/06/20 17:52 Pulse 98 11/06/20 17:52 Resp 18 11/06/20 17:52 BP 124/74 11/06/20 17:52 Pulse Ox 99 11/06/20 17:52 - Orders/Labs/Meds Orders: Active Orders 24 hr Category Date Time Status CULTURE BLOOD [BC] Stat Lab 11/06/20 17:36 Received Labs: Laboratory Tests 11/06/20 11/06/20 11/06/20 Range/Units 17:36 17:36 17:36 WBC 9.5 (5.0-10.0) 10^3/uL RBC 5.44 (4.6-6.2) 10^6/uL Hgb 15.7 (14.0-18.0) g/dL Hct 46.8 (40.0-54.0) % MCV 86.0 (80-100) fL MCH 28.9 (27.0-34.0) pg MCHC 33.5 (33.0-35.0) g/dL Plt Count 341 (150-450) 10^3/uL Neut % (Auto) 72.3 (42.2-75.2) % Lymph % (Auto) 17.7 L (20.5-50.1) % [place] % (Auto) 8.1 H (2-8) % Eos % (Auto) 1.5 (1.0-3.0) % Baso % (Auto) 0.4 (0.0-1.0) % Sodium 144 (136-145) mmol/L Potassium 3.5 (3.5-5.1) mmol/L Chloride 106 (98-107) mmol/L Carbon Dioxide 24 (21-32) mmol/L Anion Gap 17.5 H (7-13) mEq/L BUN 7 (7-18) mg/dL Creatinine 1.06 (0.70-1.30) mg/dL Est Cr Clr Drug Dosing TNP Estimated GFR (MDRD) > 60 BUN/Creatinine Ratio 6.6 (No establ ref range) Glucose 104 H (70-99) mg/dL Lactic Acid (0.4-2.0) mmol/L Calcium 8.2 L (8.5-10.1) mg/dL Magnesium 2.0 (1.8-2.4) mg/dL Total Bilirubin 0.4 (0.2-1.0) mg/dL AST 19 (15-37) U/L ALT 54 (16-63) U/L Alkaline Phosphatase 86 (46-116) U/L Ammonia 16 (11-32) umol/L Total Protein 8.0 (6.4-8.2) g/dL Albumin 3.6 (3.4-5.0) g/dL Globulin 4.4 Albumin/Globulin Ratio 0.8 Salicylates (2.8-20(Therapeutic)) mg/dL Urine Opiates Screen (NEGATIVE) Ur Oxycodone Screen (NEGATIVE) Urine Methadone Screen (NEGATIVE) Acetaminophen 0 L (10-30 (Therapeutic)) ug/mL Ur Barbiturates Screen (NEGATIVE) U Tricyclic Antidepress (NEGATIVE) Ur Phencyclidine Scrn (NEGATIVE) Ur Amphetamine Screen (NEGATIVE) U Methamphetamines Scrn (NEGATIVE) Urine MDMA Screen (NEGATIVE) U Benzodiazepines Scrn (NEGATIVE) Urine Cocaine Screen (NEGATIVE) U Marijuana (THC) Screen (NEGATIVE) Ethyl Alcohol 132 (0) mg/dL 11/06/20 11/06/20 11/06/20 Range/Units 17:36 17:36 18:50 WBC (5.0-10.0) 10^3/uL RBC (4.6-6.2) 10^6/uL Hgb (14.0-18.0) g/dL Hct (40.0-54.0) % MCV (80-100) fL MCH (27.0-34.0) pg MCHC (33.0-35.0) g/dL Plt Count (150-450) 10^3/uL Neut % (Auto) (42.2-75.2) % Lymph % (Auto) (20.5-50.1) % [place] % (Auto) (2-8) % Eos % (Auto) (1.0-3.0) % Baso % (Auto) (0.0-1.0) % Sodium (136-145) mmol/L Potassium (3.5-5.1) mmol/L Chloride (98-107) mmol/L Carbon Dioxide (21-32) mmol/L Anion Gap (7-13) mEq/L BUN (7-18) mg/dL Creatinine (0.70-1.30) mg/dL Est Cr Clr Drug Dosing Estimated GFR (MDRD) BUN/Creatinine Ratio (No establ ref range) Glucose (70-99) mg/dL Lactic Acid 2.3 H* (0.4-2.0) mmol/L Calcium (8.5-10.1) mg/dL Magnesium (1.8-2.4) mg/dL Total Bilirubin (0.2-1.0) mg/dL AST (15-37) U/L ALT (16-63) U/L Alkaline Phosphatase (46-116) U/L Ammonia (11-32) umol/L Total Protein (6.4-8.2) g/dL Albumin (3.4-5.0) g/dL Globulin Albumin/Globulin Ratio Salicylates < 2.8 L (2.8-20(Therapeutic)) mg/dL Urine Opiates Screen Negative (NEGATIVE) Ur Oxycodone Screen Negative (NEGATIVE) Urine Methadone Screen Negative (NEGATIVE) Acetaminophen (10-30 (Therapeutic)) ug/mL Ur Barbiturates Screen Negative (NEGATIVE) U Tricyclic Antidepress Negative (NEGATIVE) Ur Phencyclidine Scrn Negative (NEGATIVE) Ur Amphetamine Screen Negative (NEGATIVE) U Methamphetamines Scrn Positive H (NEGATIVE) Urine MDMA Screen Negative (NEGATIVE) U Benzodiazepines Scrn Negative (NEGATIVE) Urine Cocaine Screen Negative (NEGATIVE) U Marijuana (THC) Screen Positive H (NEGATIVE) Ethyl Alcohol (0) mg/dL Meds: Medications Discontinued Medications Generic Name Dose Route Start Last Admin Trade Name Freq PRN Reason Stop Dose Admin Multivitamins/Minerals 10 ml/ 1,011.2 mls @ 999 mls/hr 11/06/20 17:30 11/06/20 17:47 Folic Acid 1 mg/ Thiamine HCl IV 11/06/20 18:30 999 mls/hr 100 mg/ Lactated Ringer's ONETIME ONE Administration Lorazepam 1 mg 11/06/20 18:08 11/06/20 18:15 Lorazepam 1 Mg Tab PO 11/06/20 18:09 1 mg ONETIME ONE Administration Lorazepam Confirm 11/06/20 19:51 Lorazepam 1 Mg Tab Administered 11/06/20 19:52 Dose 1 mg .ROUTE .STK-MED ONE Ondansetron HCl 4 mg 11/06/20 17:30 06/17/21 17:47 Ondansetron 4 Mg/2 Ml Sdv IVPUSH 11/06/20 17:31 4 mg ONETIME ONE Administration - Re-Assessments/Exams Free Text/Narrative Re-Assessment/Exam: 11/06/20 19:51 Reported he didn't want to go home , initially reporting no [facility] to come get him. No acute distress, stable. Offered [facility] detox at [facility]. Patient stated he could find a ride home. Departure - Departure Time of Disposition: 19:44 Condition: Good - Discharge Information *PRESCRIPTION DRUG MONITORING PROGRAM REVIEWED*: No *COPY OF PRESCRIPTION DRUG MONITORING REPORT IN PATIENT GIOVANNY: No Sepsis Event Note (ED) - Focused Exam Vital Signs: Vital Signs Temp Pulse Resp BP Pulse Ox 11/06/20 17:52 98.4 F 98 18 124/74 99
[2020-11-06 17:57] VITALS: BP 124/74; PULSE 98
[2020-11-06 18:05] LABS: ANION GAP 17.5 mEq/L (7-13); CHLORIDE,CL 106 mmol/L (98-107); SODIUM,NA 144 mmol/L (136-145)
[2020-11-06] MEDS ORDERED: LORazepam 1 MG Tab PO ONE (18:08)
[2020-11-06 18:14] LABS: ACETAMINOPHEN 0 ug/mL (10-30 (Therapeutic))
[2020-11-06] MEDS ORDERED: LORazepam 1 MG Tab ONE (19:51)
== END 2020-11-06 20:01 | disposition home or self-care (01) ==
LOC: DL.ED 17:23
DX: F10.230 Alcohol dependence with withdrawal, uncomplicated (principal); F41.9 Anxiety disorder, unspecified; E66.9 Obesity, unspecified; I10 Essential (primary) hypertension; Z68.30 Body mass index [BMI] 30.0-30.9, adult
CPT/HCPCS: 36415; 80053; 80143; 80179; 80305-QW; 80307; 82140; 83605; 83735; 85025; 87040; 96365; 96375; 99283; 99284-25; A9270-GY; J2405; J3411; J3490; J7120

== ENCOUNTER 2020-11-07 12:00 | Emergency (ER) | payer MEDICAID ==
[2020-11-07 12:33] VITALS: BP 102/58; PULSE 71
[2020-11-07] MEDS: LORazepam 1 MG Tab PO ONE (14:10)
--- NOTE | 2020-11-07 14:37 | EDM.PDOCBH ---
ED HPI GENERAL MEDICAL PROBLEM - General Chief Complaint: Behavioral/Psych Stated Complaint: AMBULANCE Time Seen by Provider: 11/07/20 13:05 Source of Information: Reports: Patient History Limitations: Reports: No Limitations - History of Present Illness INITIAL COMMENTS - FREE TEXT/NARRATIVE: This 30 yo male patient was brought to the ED by [facility] due to increased anxiety. The patient was seen for similar symptoms in the ED yesterday. The patient did take his medication as prescribed and was following up with his primary care facility when he started to have another episode of increased anxiety. Onset: Today Duration: Minutes: Location: Reports: Generalized Quality: Reports: Other Severity: Moderate Improves with: Reports: None Worsens with: Reports: None Context: Reports: Other Associated Symptoms: Reports: No Other Symptoms - Related Data Allergies Allergy/AdvReac Type Severity Reaction Status Date / Time No Known Allergies Allergy Verified 11/07/20 12:37 Home Meds: Home Meds . [No Known Home Meds] 10/25/20 [History] Past Medical History - Past Health History Medical/Surgical History: Denies Medical/Surgical History HEENT History: Reports: Impaired Vision Cardiovascular History: Reports: Hypertension Respiratory History: Reports: None Gastrointestinal History: Reports: None Genitourinary History: Reports: None Musculoskeletal History: Reports: Gout Neurological History: Reports: None Psychiatric History: Reports: Addiction, Anxiety, Panic Attack Endocrine/Metabolic History: Reports: Obesity/BMI 30+ Hematologic History: Reports: None Immunologic History: Reports: None Oncologic (Cancer) History: Reports: None Dermatologic History: Reports: Other (See Below) Other Dermatologic History: severe acne - Infectious Disease History Infectious Disease History: Reports: Chicken Pox - Past Surgical History Head Surgeries/Procedures: Reports: None HEENT Surgical History: Reports: Tonsillectomy Cardiovascular Surgical History: Reports: None Respiratory Surgical History: Reports: None GI Surgical History: Reports: None Male Surgical History: Reports: None Endocrine Surgical History: Reports: None Neurological Surgical History: Reports: None Musculoskeletal Surgical History: Reports: None Social & Family History - Family History Family Medical History: No Pertinent Family History - Tobacco Use Tobacco Use Status *Q: Never Tobacco User - Caffeine Use Caffeine Use: Reports: None - Recreational Drug Use Recreational Drug Use: Yes Drug Use in Last 12 Months: Yes Recreational Drug Type: Reports: Methamphetamine - Living Situation & Occupation Living situation: Reports: Single, with Family Occupation: Unemployed ED ROS GENERAL - Review of Systems Review Of Systems: Comprehensive ROS is negative, except as noted in HPI. ED EXAM, BEHAVIORAL HEALTH - Physical Exam Exam: See Below Exam Limited By: No Limitations General Appearance: Alert, WD/WN, Anxious, Obese Eye Exam: Bilateral Eye: EOMI, Normal Inspection, PERRL Ears: Normal External Exam, Normal Canal, Hearing Grossly Normal, Normal TMs Nose: Normal Inspection, Normal Mucosa, No Blood Throat/Mouth: Normal Inspection, Normal Lips, Normal Teeth, Normal Gums, Normal Oropharynx, Normal Voice, No Airway Compromise Head: Atraumatic, Normocephalic Neck: Normal Inspection, Supple, Non-Tender, Full Range of Motion Respiratory/Chest: No Respiratory Distress, Lungs Clear, Normal Breath Sounds, No Accessory Muscle Use, Chest Non-Tender Cardiovascular: Normal Peripheral Pulses, Regular Rate, Rhythm, No Edema, No Gal lop, No JVD, No Murmur, No Rub GI/Abdominal: Normal Bowel Sounds, Soft, Non-Tender, No Organomegaly, No Distention, No Abnormal Bruit, No Mass (Male) Exam: Deferred Rectal (Males) Exam: Deferred Back Exam: Normal Inspection, Full Range of Motion, NT Extremities: Normal Inspection, Normal Range of Motion, Non-Tender, Normal Capillary Refill, No Pedal Edema Neurological: Alert, CN II-XII Intact, Normal Cognition, Normal Gait, Normal Reflexes, No Motor/Sensory Deficits, Oriented x 3 Psychiatric: Alert, Restless, Agitated, Poor Eye Contact Skin Exam: Warm, Dry, Intact, Normal color, No rash COURSE, BEHAVIORAL HEALTH COMP - Course Vital Signs: Last Vital Signs Temp 97.7 F 11/07/20 12:32 Pulse 71 11/07/20 12:32 Resp 16 11/07/20 12:32 BP 102/58 L 11/07/20 12:32 Pulse Ox 97 11/07/20 12:32 Orders, Labs, Meds: Medications Discontinued Medications Generic Name Dose Route Start Last Admin Trade Name Freq PRN Reason Stop Dose Admin Lorazepam 1 mg 11/07/20 14:04 11/07/20 14:10 Lorazepam 1 Mg Tab PO 11/07/20 14:05 1 mg ONETIME ONE Administration Departure - Departure Time of Disposition: 14:35 Disposition: Home, Self-Care 01 Condition: Fair Clinical Impression: Anxiety - Discharge Information *PRESCRIPTION DRUG MONITORING PROGRAM REVIEWED*: Not Applicable *COPY OF PRESCRIPTION DRUG MONITORING REPORT IN PATIENT GIOVANNY: Not Applicable Instructions: Managing Anxiety, Adult Forms: ED Department Discharge Care Plan Goals: The patient was advised of the examination results during the visit. The patient was given an oral dose of Ativan while in the ED. The patient was discharged with a script for Ativan (1 mg) #6 to take 1 by mouth every 6 hours as needed for anxiety. The patient should take all other prescription medications as prescribed. If the patient has any additional symptoms or concerns, the patient should either return to the emergency department or visit his primary care facility. Sepsis Event Note (ED) - Evaluation Sepsis Screening Result: No Definite Risk - Focused Exam Vital Signs: Vital Signs Temp Pulse Resp BP Pulse Ox 11/07/20 12:32 97.7 F 71 16 102/58 L 97
== END 2020-11-07 15:33 | disposition home or self-care (01) ==
LOC: DL.ED 12:00
DX: F41.9 Anxiety disorder, unspecified (principal); I10 Essential (primary) hypertension; E66.9 Obesity, unspecified
CPT/HCPCS: 99283; 99284; A9270

== ENCOUNTER 2021-03-25 23:40 | Emergency (ER) | payer MEDICAID | END 2021-03-26 00:40 | disposition left against medical advice (07) | LOC: DL.ED 23:40 | DX: Z53.21 Procedure and treatment not carried out due to patient leaving prior to being seen by health care provider (principal) ==

== ENCOUNTER 2023-07-17 13:54 | Emergency (ER) | payer MEDICAID ==
[2023-07-17 14:32] LABS: BASOPHILS PERCENT AUTO 0.5 % (0.0-1.0); EOSINOPHILS PERCENT AUTO 3.4 % (1.0-3.0); HEMATOCRIT 45.9 % (40.0-54.0); HEMOGLOBIN 15.3 g/dL (14.0-18.0); LYMPHOCYTES PERCENT AUTO 19.3 % (20.5-50.1); MEAN CORPUSCULAR HGB CONC 33.3 g/dL (33.0-35.0); MONOCYTES PERCENT AUTO 15.4 % (2-8); NEUTROPHILS PERCENT AUTO 61.4 % (42.2-75.2); PLATELET COUNT,PLT 251 10^3/uL (150-450); WHITE BLOOD CELL COUNT,WBC 7.3 10^3/uL (5.0-10.0)
[2023-07-17 14:46] LABS: ANION GAP 12.4 mEq/L (7-13); BLOOD UREA NITROGEN,BUN 10 mg/dL (7-18); CALCIUM 8.5 mg/dL (8.5-10.1); CARBON DIOXIDE,CO2 28 mmol/L (21-32); CHLORIDE,CL 104 mmol/L (98-107); CREATININE 0.95 mg/dL (0.70-1.30); GLUCOSE RANDOM 107 mg/dL (70-99); POTASSIUM,K 3.4 mmol/L (3.5-5.1); SODIUM,NA 141 mmol/L (136-145)
[2023-07-17 14:47] LABS: ESTIMATED GFR 109 mL/min (>=60)
[2023-07-17] MEDS: Iopamidol 755 Mg/ML 100 ML Bottle IVPUSH ONE ×2 (15:38)
[2023-07-17] MEDS ORDERED: Fluconazole 100 MG Tab ONE (17:37)
[2023-07-17] MEDS: Fluconazole 100 MG Tab PO ONE (17:43)
[2023-07-17] MEDS: Doxycycline Monohydrate 100 MG Cap PO ONE (17:43)
[2023-07-17 17:52] VITALS: BP 162/84; PULSE 88
[2023-07-18] MEDS ORDERED: Fluconazole 100 MG Tab PO SCH (09:00)
== END 2023-07-17 17:46 | disposition home or self-care (01) ==
LOC: DL.ED 13:54
DX: L03.116 Cellulitis of left lower limb (principal); I10 Essential (primary) hypertension; B35.3 Tinea pedis; E66.9 Obesity, unspecified; Z68.44 Body mass index [BMI] 60.0-69.9, adult
CPT/HCPCS: 36415; 73706; 80048; 85025; 93971; 99284; A9270; Q9967

== ENCOUNTER 2023-08-19 14:53 | Emergency (ER) | payer MEDICAID ==
[2023-08-19 15:12] VITALS: BP 139/81; PULSE 130
== END 2023-08-19 15:26 | disposition home or self-care (01) ==
LOC: DL.ED 14:53
DX: L03.211 Cellulitis of face (principal); E66.9 Obesity, unspecified; Z68.44 Body mass index [BMI] 60.0-69.9, adult
CPT/HCPCS: 99283

== ENCOUNTER 2023-10-01 22:04 | Emergency (ER) | payer MEDICAID ==
[2023-10-01 22:44] VITALS: BP 143/92; PULSE 93
[2023-10-02] MEDS: Ondansetron 4 MG Tab.DIS PO ONE (00:48)
[2023-10-02 00:57] LABS: BASOPHILS PERCENT AUTO 0.3 % (0.0-1.0); EOSINOPHILS PERCENT AUTO 3.6 % (1.0-3.0); HEMATOCRIT 46.3 % (40.0-54.0); HEMOGLOBIN 15.2 g/dL (14.0-18.0); LYMPHOCYTES PERCENT AUTO 15.6 % (20.5-50.1); MEAN CORPUSCULAR HEMOGLOBIN 30.7 pg (27.0-34.0); MEAN CORPUSCULAR HGB CONC 32.8 g/dL (33.0-35.0); MEAN CORPUSCULAR VOLUME 93.5 fL (80-100); MONOCYTES PERCENT AUTO 8.5 % (2-8); PLATELET COUNT,PLT 282 10^3/uL (150-450); RED BLOOD CELL COUNT 4.95 10^6/uL (4.6-6.2)
[2023-10-02 01:14] LABS: ALBUMIN 3.2 g/dL (3.4-5.0); ANION GAP 15.3 mEq/L (7-13); BILIRUBIN TOTAL 0.5 mg/dL (0.2-1.0); BUN/CREATININE RATIO 6.2 (No establ ref range); CALCIUM 8.4 mg/dL (8.5-10.1); CREATININE 0.97 mg/dL (0.70-1.30); POTASSIUM,K 3.3 mmol/L (3.5-5.1); PROTEIN TOTAL,TP 8.9 g/dL (6.4-8.2)
[2023-10-02 01:16] LABS: A/G RATIO 0.56
== END 2023-10-02 01:45 | disposition home or self-care (01) ==
LOC: DL.ED 22:04
DX: K52.9 Noninfective gastroenteritis and colitis, unspecified (principal); I10 Essential (primary) hypertension; Z86.19 Personal history of other infectious and parasitic diseases; Z87.891 Personal history of nicotine dependence; Z68.44 Body mass index [BMI] 60.0-69.9, adult
CPT/HCPCS: 36415; 80053; 83690; 85025; 99284; A9270

== ENCOUNTER 2024-05-07 20:33 | Emergency (ER) | payer MEDICAID ==
[2024-05-07] MEDS: PHENobarbital Sodium 65 MG/ML SDV IM ONE (21:05)
[2024-05-07] MEDS: Take Home: Ondansetron 4 MG Tab.DIS, 5 Tab Pack PO ONE (21:14)
[2024-05-07 21:48] VITALS: BP 149/87; PULSE 104
== END 2024-05-07 21:48 | disposition home or self-care (01) ==
LOC: DL.ED 20:33
DX: F10.230 Alcohol dependence with withdrawal, uncomplicated (principal); F41.9 Anxiety disorder, unspecified; R11.0 Nausea; I10 Essential (primary) hypertension; E66.9 Obesity, unspecified; Z87.891 Personal history of nicotine dependence; Z90.89 Acquired absence of other organs; Z68.43 Body mass index [BMI] 50.0-59.9, adult
CPT/HCPCS: 96372; 99284; J2560; Q0162

== ENCOUNTER 2024-08-28 13:18 | Inpatient (IN) | payer MEDICAID ==
[2024-08-28] MEDS ORDERED: Thiamine 200 MG in Sodium Chloride 0.9% 1,000 ML IV ONE ×2 (14:08→14:32)
[2024-08-28 14:25] LABS: BASOPHILS PERCENT AUTO 0.9 % (0.0-1.0); EOSINOPHILS PERCENT AUTO 7.4 % (1.0-3.0); HEMATOCRIT 45.8 % (40.0-54.0); HEMOGLOBIN 14.9 g/dL (14.0-18.0); LYMPHOCYTES PERCENT AUTO 11.5 % (20.5-50.1); MEAN CORPUSCULAR HEMOGLOBIN 30.7 pg (27.0-34.0); MEAN CORPUSCULAR HGB CONC 32.5 g/dL (33.0-35.0); MEAN CORPUSCULAR VOLUME 94.2 fL (80-100); MONOCYTES PERCENT AUTO 6.2 % (2-8); PLATELET COUNT,PLT 307 10^3/uL (150-450); RED BLOOD CELL COUNT 4.86 10^6/uL (4.6-6.2); WHITE BLOOD CELL COUNT,WBC 9.2 10^3/uL (5.0-10.0)
[2024-08-28] MEDS: Sodium Chloride 0.9% 1,000 ML IV SCH ×2 (14:35→17:28)
[2024-08-28] MEDS: Thiamine 200 MG in Sodium Chloride 0.9% 100 ML IV ONE (14:36)
[2024-08-28 14:38] LABS: HEMOGLOBIN A1C 5.6 % (<5.7)
[2024-08-28] MEDS: PHENobarbitaL sodium 260 MG in Sodium Chloride 0.9% 100 ML IV ONE (14:47)
[2024-08-28 14:52] LABS: PROTHROMBIN TIME 10.4 SEC (9.0-12.0); PTT,PARTIAL THROMBOPLSTIN TIME 26.8 SEC (22.0-34.0)
[2024-08-28 15:07] LABS: ALBUMIN 3.2 g/dL (3.4-5.0); ANION GAP 18.6 mEq/L (7-13); BILIRUBIN TOTAL 0.4 mg/dL (0.2-1.0); BUN/CREATININE RATIO 6.3 (No establ ref range); CALCIUM 8.3 mg/dL (8.5-10.1); CREATININE 0.79 mg/dL (0.70-1.30); EST CRCL DRUG DOSING (CG) 150.3 mL/min; POTASSIUM,K 3.6 mmol/L (3.5-5.1); PROTEIN TOTAL,TP 7.9 g/dL (6.4-8.2); T4 FREE 1.23 ng/dL (0.76-1.46); TSH ULTRASENSITIVE 1.64 uIU/mL (0.36-3.74)
[2024-08-28 15:14] LABS: A/G RATIO 0.68
[2024-08-28] MEDS ORDERED: Ondansetron 4 MG/2 ML SDV IVPUSH PRN (17:06)
[2024-08-28] MEDS ORDERED: Docusate Sodium 100 MG Cap PO PRN (17:06)
[2024-08-28] MEDS: chlordiazePOXIDE 25 MG Cap PO SCH (17:22)
[2024-08-28] MEDS: risperiDONE 1 MG Tab PO SCH (17:35)
[2024-08-28] MEDS: Pantoprazole 40 MG Tab.CR PO SCH (17:35)
[2024-08-28] MEDS: MVI, Adult with Vitamin K 10 ML, Folic Acid 1 MG, Thiamine 100 MG in Lactated Ringers 1... IV ONE (17:57)
[2024-08-28] MEDS: Gabapentin 300 MG Cap PO SCH (20:26)
[2024-08-28] MEDS: LORazepam 2 MG/ML SDV IVPUSH PRN (20:27)
[2024-08-28 21:59] LABS: ALBUMIN 2.7 g/dL (3.4-5.0); BILIRUBIN DIRECT 0.2 mg/dL (0.0-0.2); BILIRUBIN INDIRECT 0.2; BILIRUBIN TOTAL 0.4 mg/dL (0.2-1.0); FOLIC ACID 6.3 ng/mL (8.6-58.9); PROTEIN TOTAL,TP 7.3 g/dL (6.4-8.2)
[2024-08-28 22:02] LABS: A/G RATIO 0.59
[2024-08-28] MEDS: Heparin Sodium 5,000 Units/ML Vial SUBCUT SCH (22:59)
[2024-08-29 06:22] LABS: BASOPHILS PERCENT AUTO 0.4 % (0.0-1.0); EOSINOPHILS PERCENT AUTO 9.4 % (1.0-3.0); HEMATOCRIT 41.8 % (40.0-54.0); HEMOGLOBIN 13.3 g/dL (14.0-18.0); LYMPHOCYTES PERCENT AUTO 10.4 % (20.5-50.1); MEAN CORPUSCULAR HEMOGLOBIN 30.6 pg (27.0-34.0); MEAN CORPUSCULAR HGB CONC 31.8 g/dL (33.0-35.0); MEAN CORPUSCULAR VOLUME 96.1 fL (80-100); MONOCYTES PERCENT AUTO 6.3 % (2-8); NEUTROPHILS PERCENT AUTO 73.5 % (42.2-75.2); PLATELET COUNT,PLT 241 10^3/uL (150-450); RED BLOOD CELL COUNT 4.35 10^6/uL (4.6-6.2); WHITE BLOOD CELL COUNT,WBC 8.9 10^3/uL (5.0-10.0)
[2024-08-29 06:38] LABS: ANION GAP 13.6 mEq/L (7-13); CREATININE 0.79 mg/dL (0.70-1.30); EST CRCL DRUG DOSING (CG) 150.3 mL/min; MAGNESIUM 1.7 mg/dL (1.8-2.4); POTASSIUM,K 3.6 mmol/L (3.5-5.1)
[2024-08-29] MEDS: LORazepam 2 MG/ML SDV ONE (08:26)
[2024-08-29] MEDS: Magnesium Sulf/Wat 2 GM/50 mL 2 GM in Premix Bag 1 BAG IV ONE (09:13)
[2024-08-29] MEDS: Folic Acid 1 MG in Sodium Chloride 0.9% 50 ML IV SCH (09:55)
[2024-08-29] MEDS ORDERED: Acetaminophen 325 MG Tab PO PRN (19:21)
[2024-08-29] MEDS: chlordiazePOXIDE 25 MG Cap PO SCH (22:51)
[2024-08-30 06:21] LABS: BASOPHILS PERCENT AUTO 0.3 % (0.0-1.0); EOSINOPHILS PERCENT AUTO 9.9 % (1.0-3.0); HEMATOCRIT 42.4 % (40.0-54.0); HEMOGLOBIN 13.4 g/dL (14.0-18.0); LYMPHOCYTES PERCENT AUTO 9.1 % (20.5-50.1); MEAN CORPUSCULAR HEMOGLOBIN 30.5 pg (27.0-34.0); MEAN CORPUSCULAR HGB CONC 31.6 g/dL (33.0-35.0); MEAN CORPUSCULAR VOLUME 96.4 fL (80-100); MONOCYTES PERCENT AUTO 4.5 % (2-8); NEUTROPHILS PERCENT AUTO 76.2 % (42.2-75.2); PLATELET COUNT,PLT 226 10^3/uL (150-450); WHITE BLOOD CELL COUNT,WBC 9.7 10^3/uL (5.0-10.0)
[2024-08-30 06:38] LABS: ANION GAP 16.4 mEq/L (7-13); CALCIUM 8.2 mg/dL (8.5-10.1); CREATININE 0.77 mg/dL (0.70-1.30); EST CRCL DRUG DOSING (CG) 154.21 mL/min; POTASSIUM,K 3.4 mmol/L (3.5-5.1)
[2024-08-30] MEDS: Metoprolol Tartrate 25 MG Tab PO SCH (09:22)
[2024-08-30] MEDS: Magnesium Sulf/Wat 2 GM/50 mL 2 GM in Premix Bag 1 BAG IV ONE (09:28)
[2024-08-30] MEDS: cloNIDine 0.1 MG/Day Transdermal Patch TRDERM SCH (12:20)
[2024-08-30] MEDS: Potassium Chloride 10 MEQ Tab.ER PO SCH (12:20)
[2024-08-30] MEDS: Metoprolol Tartrate 5 MG/5 ML SDV IVPUSH ONE (16:34)
[2024-08-30] MEDS: chlordiazePOXIDE 25 MG Cap PO SCH (17:28)
[2024-08-30] MEDS: Metoprolol Tartrate 50 MG Tab PO SCH (22:15)
[2024-08-31 06:14] LABS: BASOPHILS PERCENT AUTO 0.2 % (0.0-1.0); EOSINOPHILS PERCENT AUTO 9.8 % (1.0-3.0); HEMATOCRIT 42.6 % (40.0-54.0); HEMOGLOBIN 13.5 g/dL (14.0-18.0); LYMPHOCYTES PERCENT AUTO 8.9 % (20.5-50.1); MEAN CORPUSCULAR HEMOGLOBIN 30.8 pg (27.0-34.0); MEAN CORPUSCULAR HGB CONC 31.7 g/dL (33.0-35.0); MONOCYTES PERCENT AUTO 4.7 % (2-8); NEUTROPHILS PERCENT AUTO 76.4 % (42.2-75.2); PLATELET COUNT,PLT 233 10^3/uL (150-450); RED BLOOD CELL COUNT 4.39 10^6/uL (4.6-6.2); WHITE BLOOD CELL COUNT,WBC 10.7 10^3/uL (5.0-10.0)
[2024-08-31 06:35] LABS: ANION GAP 15.7 mEq/L (7-13); CALCIUM 8.3 mg/dL (8.5-10.1); CREATININE 0.75 mg/dL (0.70-1.30); EST CRCL DRUG DOSING (CG) 158.32 mL/min; POTASSIUM,K 3.7 mmol/L (3.5-5.1)
[2024-08-31] MEDS: chlordiazePOXIDE 25 MG Cap PO SCH (23:15)
[2024-09-01 06:00] LABS: BASOPHILS PERCENT AUTO 0.3 % (0.0-1.0); EOSINOPHILS PERCENT AUTO 9.9 % (1.0-3.0); HEMATOCRIT 43.2 % (40.0-54.0); HEMOGLOBIN 13.7 g/dL (14.0-18.0); LYMPHOCYTES PERCENT AUTO 10.2 % (20.5-50.1); MEAN CORPUSCULAR HEMOGLOBIN 31.1 pg (27.0-34.0); MEAN CORPUSCULAR HGB CONC 31.7 g/dL (33.0-35.0); MONOCYTES PERCENT AUTO 5.7 % (2-8); NEUTROPHILS PERCENT AUTO 73.9 % (42.2-75.2); PLATELET COUNT,PLT 229 10^3/uL (150-450); RED BLOOD CELL COUNT 4.41 10^6/uL (4.6-6.2); WHITE BLOOD CELL COUNT,WBC 10.8 10^3/uL (5.0-10.0)
[2024-09-01 06:13] LABS: ANION GAP 14.8 mEq/L (7-13); CALCIUM 8.5 mg/dL (8.5-10.1); CREATININE 0.73 mg/dL (0.70-1.30); EST CRCL DRUG DOSING (CG) 162.66 mL/min; POTASSIUM,K 3.8 mmol/L (3.5-5.1)
[2024-09-01 13:15] LABS: APPEARANCE,URINE CLEAR (CLEAR); COLOR,URINE DARK YELLOW (YELLOW); PH,URINE 6.5 (5.0-9.0)
[2024-09-01 13:16] LABS: BILIRUBIN,URINE SMALL (NEGATIVE); GLUCOSE,URINE NEGATIVE (NEGATIVE); KETONES,URINE NEGATIVE (NEGATIVE); LEUKOCYTE ESTERASE,URINE NEGATIVE (NEGATIVE); NITRITE,URINE NEGATIVE (NEGATIVE); OCCULT BLOOD,URINE NEGATIVE (NEGATIVE); PROTEIN,URINE NEGATIVE (NEGATIVE); UROBILINOGEN,URINE >=8.0 mg/dL (0.2-1.0)
[2024-09-02 08:47] LABS: VITAMIN B1, WHOLE BLOOD 249 nmol/L (70-180)
[2024-09-02 12:45] VITALS: BP 134/84; PULSE 87
== END 2024-09-02 14:47 | disposition home or self-care (01) | DRG 897 ==
LOC: DL.ED 13:18 → DL.MS 16:10 → DL.ED 16:17 → DL.MS 08-29 14:31
PROVIDERS: ADMIT Internal Medicine; ATTEND Internal Medicine
DX: F10.230 Alcohol dependence with withdrawal, uncomplicated (principal); Z68.43 Body mass index [BMI] 50.0-59.9, adult; E66.9 Obesity, unspecified; Y90.6 Blood alcohol level of 120-199 mg/100 ml; Z68.38 Body mass index [BMI] 38.0-38.9, adult; E87.1 Hypo-osmolality and hyponatremia; E87.29 Other acidosis; M10.9 Gout, unspecified; F41.9 Anxiety disorder, unspecified; I10 Essential (primary) hypertension; F43.10 Post-traumatic stress disorder, unspecified; K29.70 Gastritis, unspecified, without bleeding; E53.8 Deficiency of other specified B group vitamins; E83.42 Hypomagnesemia; E87.6 Hypokalemia; E66.01 Morbid (severe) obesity due to excess calories; H54.7 Unspecified visual loss; D72.829 Elevated white blood cell count, unspecified; G47.33 Obstructive sleep apnea (adult) (pediatric); Z90.89 Acquired absence of other organs
CPT/HCPCS: 36415; 80053; 80307; 83036; 83735; 84439; 84443; 85025; 85610; 85730; 96365; 96367; 99284; J2560; J3411; J7030; 80048; 80076; 81003; 82607; 82746; 84425; 99223; 99232; 99239; A9270-GY; J1644; J2060; J3475; J3490; J7120

== ENCOUNTER 2025-01-18 07:01 | Emergency (ER) | payer MEDICAID ==
[2025-01-18 07:12] VITALS: PULSE 85
[2025-01-18 07:21] LABS: BASOPHILS PERCENT AUTO 0.7 % (0.0-1.0); EOSINOPHILS PERCENT AUTO 2.2 % (1.0-3.0); LYMPHOCYTES PERCENT AUTO 23.5 % (20.5-50.1); MONOCYTES PERCENT AUTO 9.9 % (2-8); NEUTROPHILS PERCENT AUTO 63.7 % (42.2-75.2); PLATELET COUNT,PLT 272 10^3/uL (150-450); RED BLOOD CELL COUNT 5.00 10^6/uL (4.6-6.2); WHITE BLOOD CELL COUNT,WBC 5.6 10^3/uL (5.0-10.0)
[2025-01-18 07:39] LABS: APPEARANCE,URINE CLEAR (CLEAR); GLUCOSE,URINE NEGATIVE (NEGATIVE); OCCULT BLOOD,URINE NEGATIVE (NEGATIVE)
[2025-01-18 07:40] LABS: A/G RATIO 0.8; ALANINE AMINOTRANSFERASE,ALT 248.0 U/L (16-63); ASPARTATE AMNIOTRANSFERASE,AST 91.0 U/L (15-37); BILIRUBIN TOTAL 0.5 mg/dL (0.2-1.0); BLOOD UREA NITROGEN,BUN 5.0 mg/dL (7-18); CARBON DIOXIDE,CO2 28.0 mmol/L (21-32); CHLORIDE,CL 105.0 mmol/L (98-107); CREATININE 0.74 mg/dL (0.70-1.30); EST CRCL DRUG DOSING (CG) 155.84 mL/min; ETHANOL BLOOD MEDICAL 229.0 mg/dL (0); GLUCOSE RANDOM 110.0 mg/dL (70-99); POTASSIUM,K 3.3 mmol/L (3.5-5.1); PROTEIN TOTAL,TP 7.8 g/dL (6.4-8.2); SODIUM,NA 145.0 mmol/L (136-145)
[2025-01-18 07:41] LABS: AMPHETAMINES,URINE NEGATIVE (NEGATIVE); BARBITURATES,URINE NEGATIVE (NEGATIVE); MDMA (ECSTASY), URINE NEGATIVE (NEGATIVE); METHAMPHETAMINES,URINE NEGATIVE (NEGATIVE); OPIATES,URINE NEGATIVE (NEGATIVE); OXYCODONE,URINE NEGATIVE (NEGATIVE); PHENCYCLIDINE,URINE NEGATIVE (NEGATIVE); TCA,URINE NEGATIVE (NEGATIVE)
[2025-01-18 07:42] LABS: ESTIMATED GFR 123.0 mL/min (>=60)
[2025-01-18 07:54] LABS: EPITHELIAL CELLS,URINE FEW /HPF (NOT SEEN)
[2025-01-18] MEDS: GI Cocktail Oral Solution 30 ML PO ONE (08:33)
[2025-01-18 09:02] VITALS: BP 117/65
== END 2025-01-18 09:24 ==
LOC: DL.ED 07:01
DX: F10.120 Alcohol abuse with intoxication, uncomplicated (principal); R45.851 Suicidal ideations; I10 Essential (primary) hypertension; Z79.899 Other long term (current) drug therapy; Y90.7 Blood alcohol level of 200-239 mg/100 ml
CPT/HCPCS: 36415; 80053; 80143; 80179; 80305; 80307; 81001; 85025; 99285; A9270